=== PATIENT | female | born 1960 | race Caucasian/White ===

== ENCOUNTER → 2016-09-10 | Outpatient (CLI) | payer BC ==
--- NOTE | 2016-09-10 15:30 | CR ---
EXAMINATION: Pelvis and right hip HISTORY: Pain COMPARISON: 08/26/2016 TECHNIQUE: AP pelvis and 2 views of the right hip FINDINGS: Severe joint space narrowing, subchondral cystic change and sclerosis is noted within the right hip. There is an os acetabuli versus disrupted osteophyte within the right hip. No fracture or acute osseous abnormality is present. The SI joints are symmetric. The left hip appears normal. IMPRESSION: 1. Advanced osteoarthritic changes and joint space narrowing within the right hip. 2. No acute osseous abnormalities.
== END ==
LOC: MW.CHORTHO 07:47
PROVIDERS: ATTEND Orthopaedic Surgery
DX: M25.551 Pain in right hip (principal); M16.11 Unilateral primary osteoarthritis, right hip
CPT/HCPCS: 73502-26-RT; 73502-RT

== ENCOUNTER → 2016-09-23 | Outpatient (CLI) | payer BC ==
[2016-09-23 10:24] LABS: CHLORIDE,CL 109 mmol/L (98-110); SODIUM,NA 140 mmol/L (136-146)
--- NOTE | 2016-09-23 22:01 | CR ---
EXAM DATE: 09/23/16 PATIENT'S AGE: 56 Patient: MINISTERIO GALICIA Facility: [facility] Site . Site : 1960 Study: XRay-Chest [id number]/13/2017 11:35:37 AM Ordering Physician: Ricky Hillman Final Report: INDICATION: Preop for hip surgery. TECHNIQUE: PA and lateral. COMPARISON: 03/24/2015. FINDINGS: Lungs and pleural spaces clear. Heart size and pulmonary vasculature within normal limits. No significant osseous abnormality. IMPRESSION: Negative chest. Dictated by Willis Metcalf MD @ Sep 23 2016 4:30PM Signed by: Willis Metcalf MD @09/23/2016 4:31:13 PM (Electronic Signature) Report Signed by Proxy and Original Signed Document filed in the Medical Record. MTDD
== END ==
LOC: MW.CHFP 09:48
PROVIDERS: ATTEND Emergency Medicine
DX: Z01.818 Encounter for other preprocedural examination (principal); E61.1 Iron deficiency; N39.0 Urinary tract infection, site not specified
CPT/HCPCS: 36415; 71020; 71020-26; 80048; 81001; 85025; 85610; 87086; 87088; 87186; 93005

== ENCOUNTER 2016-10-10 06:24 | Inpatient (IN) | payer BC ==
[~2016-10-10 06:24] MED LIST: Lactated Ringers 1,000 ML IV SCH
[2016-10-10] MEDS ORDERED: Ondansetron 4 MG/2 ML SDV IVPUSH PRN (06:30)
[2016-10-10] MEDS ORDERED: Acetaminophen/oxyCODONE 325-5 MG Tab PO PRN (06:30)
[2016-10-10] MEDS ORDERED: Docusate Sodium 100 MG Cap PO PRN (06:30)
[2016-10-10] MEDS ORDERED: ceFAZolin 2 GM in Premix Bag 1 BAG IV ONE (07:00)
[2016-10-10] MEDS ORDERED: Midazolam 1 MG/ML 2 ML SDV ONE (07:17)
[2016-10-10] MEDS ORDERED: Propofol 200 MG/20 ML SDV ONE (07:17)
[2016-10-10] MEDS ORDERED: Lidocaine 2% 5 ML SDV ONE (07:17)
[2016-10-10] MEDS ORDERED: fentaNYL 250 MCG/5 ML SDV ONE (07:18)
[2016-10-10] MEDS ORDERED: Ondansetron 4 MG/2 ML SDV ONE (07:20)
[2016-10-10] MEDS ORDERED: Succinylcholine/Normal Saline 200 MG/10 ML Syringe ONE (07:20)
[2016-10-10] MEDS ORDERED: Rocuronium 10 MG/ML 10 ML Syringe ONE (07:20)
--- NOTE | 2016-10-10 07:23 | PCM.PREANE ---
Preanesthetic Assessment - Anesthesia/Transfusion/Family Hx Anesthesia History: Prior Anesthesia Without Reaction Family History of Anesthesia Reaction: No Transfusion History: No Prior Transfusion(s) - Review of Systems General: No Symptoms Pulmonary: No Symptoms Cardiovascular: No Symptoms Gastrointestinal: No symptoms Neurological: No Symptoms Other: Reports: None - Physical Assessment O2 Sat by Pulse Oximetry: 97 Respiratory Rate: 16 Vital Signs: Last Vital Signs Temp 36.2 C 10/10/16 06:52 Pulse 100 10/10/16 06:52 Resp 16 10/10/16 06:52 BP 131/78 10/10/16 06:52 Pulse Ox 97 10/10/16 06:52 Height: 1.58 m Weight: 64.41 kg ASA Class: 1 Mental Status: Alert & Oriented x3 Airway Class: Mallampati = 1 Dentition: Reports: Partial ROM/Head Extension: Full Lungs: Clear to auscultation, Normal respiratory effort Cardiovascular: Regular Rate - Allergies Allergies/Adverse Reactions: Allergies Allergy/AdvReac Type Severity Reaction Status Date / Time No Known Allergies Allergy Verified 10/07/16 14:43 - Anesthesia Plan Pre-Op Medication Ordered: None - Acknowledgements Anesthesia Type Planned: General Anesthesia, Spinal Pt an Appropriate Candidate for the Planned Anesthesia: Yes Alternatives and Risks of Anesthesia Discussed w Pt/Guardian: Yes Pt/Guardian Understands and Agrees with Anesthesia Plan: Yes PreAnesthesia Questionnaire HEENT History: Reports: Allergic rhinitis Other HEENT History: wears glasses occasionally, has upper partial removable denture Cardiovascular History: Reports: None Respiratory History: Reports: None Gastrointestinal History: Reports: Diverticulosis, Gastritis Other Gastrointestinal History: hx gastric ulcer Genitourinary History: Reports: None SERVER ASSISTANT History: Reports: None Musculoskeletal History: Reports: Arthritis Neurological History: Reports: None Psychiatric History: Reports: None Endocrine/Metabolic History: Reports: None Hematologic History: Reports: None Immunologic History: Reports: None Oncologic (Cancer) History: Reports: None Dermatologic History: Reports: None - Past Surgical History Head Surgeries/Procedures: Reports: None HEENT Surgical History: Reports: Tonsillectomy Cardiovascular Surgical History: Reports: None Respiratory Surgical History: Reports: None GI Surgical History: Reports: Colonoscopy, EGD Female Surgical History: Reports: Tubal ligation Endocrine Surgical History: Reports: None Neurological Surgical History: Reports: None Musculoskeletal Surgical History: Reports: None Oncologic Surgical History: Reports: None Dermatological Surgical History: Reports: None - SUBSTANCE USE Smoking Status *Q: Former Smoker Tobacco Use Within Last Twelve Months: No Recreational Drug Use History: No - HOME MEDS Home Medications: Home Meds Meloxicam [Mobic] 1 - 2 tab PO BID 03/22/15 [History] Multivitamin [Multivitamins] 1 tab PO DAILY 03/22/15 [History] traMADol HCl [Ultram] 50 mg PO Q6H PRN 10/07/16 [History] - CURRENT (IN HOUSE) MEDS Current Meds: Current Medications Aspirin (Ecotrin) 325 mg PO BID NOA Celecoxib (Celebrex) 200 mg PO DAILY NOA Docusate Sodium (Colace) 100 mg PO BID PRN PRN Reason: Constipation Cefazolin Sodium/Dextrose 2 gm (/ Premix) 50 mls @ 100 mls/hr IV ONCALL ONE Stop: 10/10/16 07:29 Tranexamic Acid 1,000 mg/ (Sodium Chloride) 110 mls @ 600 mls/hr IV ONETIME ONE Stop: 10/10/16 07:40 Lactated Ringer's (Ringers, Lactated) 1,000 mls @ 100 mls/hr IV ASDIRECTED [facility] Last Admin: 10/10/16 07:03 Dose: 100 mls/hr Lactated Ringer's (Ringers, Lactated) 1,000 mls @ 125 mls/hr IV ASDIRECTED [facility] Cefazolin Sodium/Dextrose 1 gm (/ Premix) 50 mls @ 100 mls/hr IV Q8H NOA Stop: 10/11/16 06:59 Ketorolac Tromethamine (Toradol) 30 mg IVPUSH Q8H PRN PRN Reason: Pain Multivitamins/Minerals (Thera M Plus) 1 tab PO DAILY [facility] Ondansetron HCl (Zofran) 4 mg IVPUSH Q4H PRN PRN Reason: Nausea/Vomiting Oxycodone/Acetaminophen (Percocet 325-5 Mg) 1 tab PO Q4H PRN PRN Reason: Pain Discontinued Medications Fentanyl (Sublimaze) Confirm Administered Dose 250 mcg .ROUTE .STK-MED ONE Stop: 10/10/16 07:19 Lidocaine (Xylocaine-Mpf 2%) Confirm Administered Dose 10 ml .ROUTE .STK-MED ONE Stop: 10/10/16 07:18 Midazolam HCl (Versed 1 Mg/Ml) Confirm Administered Dose 2 mg .ROUTE .STK-MED ONE Stop: 10/10/16 07:18 Propofol (Diprivan 20 Ml) Confirm Administered Dose 400 mg .ROUTE .STK-MED ONE Stop: 10/10/16 07:18 Preanesthetic Assessment - ANESTHESIA/TRANSFUSION/FAMILY HX Anesthesia/Transfusion History: No Prior Transfusion(s), Prior Anesthesia Family History of Anesthesia Reaction: No Other Intubation History Comment: no known problems - PHYSICAL ASSESSMENT O2 Sat by Pulse Oximetry: 97 RR: 16 Vital Signs: Last Vital Signs Temp 36.2 C 10/10/16 06:52 Pulse 100 10/10/16 06:52 Resp 16 10/10/16 06:52 BP 131/78 10/10/16 06:52 Pulse Ox 97 10/10/16 06:52 Height: 1.58 m Weight: 64.41 kg - ALLERGIES Allergies/Adverse Reactions: Allergies Allergy/AdvReac Type Severity Reaction Status Date / Time No Known Allergies Allergy Verified 10/07/16 14:43
[2016-10-10] MEDS ORDERED: Tranexamic Acid 1,000 MG in Sodium Chloride 0.9% 100 ML IV ONE (07:30)
[2016-10-10] MEDS ORDERED: Phenylephrine/Normal Saline 100 MCG/ML 10 ML Syringe ONE (08:24)
[2016-10-10] MEDS ORDERED: HYDROmorphone 2 MG/ML Syringe IVPUSH ONE (09:21)
[2016-10-10] MEDS ORDERED: fentaNYL 100 MCG/2 ML SDV IVPUSH PRN (09:21)
[2016-10-10] MEDS ORDERED: Neostigmine Methylsulfate 1 MG/ML 5 ML Syringe ONE (09:40)
[2016-10-10] MEDS ORDERED: Ketorolac 30 MG/ML SDV ONE (09:45)
[2016-10-10] MEDS ORDERED: ePHEDrine 50 MG/ML SDV ONE (09:52)
--- NOTE | 2016-10-10 11:18 | CR ---
EXAMINATION: Right hip HISTORY: Total hip replacement COMPARISON: 09/10/2016 TECHNIQUE: 5 fluoroscopic images provided FINDINGS/IMPRESSION: Operative control films demonstrate placement of right total hip hardware. Posi tion and alignment appear normal.
--- NOTE | 2016-10-10 11:38 | PCM.POSTAN ---
POST ANESTHESIA ASSESSMENT - MENTAL STATUS Mental Status: alert, oriented - RESPIRATORY Respiratory Status: respiratory rate WNL, airway patent, O2 saturation stable - CARDIOVASCULAR CV Status: pulse rate WNL, blood pressure stable - GASTROINTESTINAL GI Status: no symptoms - PAIN Pain Score: 0 (spinal still effective) - POST OP HYDRATION Hydration Status: adequate & stable - OBSERVATIONS Free Text/Narrative:: To floor for Phase II
[2016-10-10] MEDS: Multivitamins with Iron/Calcium/Folic Acid/Minerals Tab PO SCH (12:57)
[2016-10-10] MEDS: Lactated Ringers 1,000 ML IV SCH ×2 (14:00→20:17)
[2016-10-10] MEDS: ceFAZolin 1 GM in Premix Bag 1 BAG IV SCH ×2 (14:21→22:24)
--- NOTE | 2016-10-10 15:19 | CR ---
EXAMINATION: Pelvis HISTORY: Right total hip hardware COMPARISON: Same day TECHNIQUE: Low AP pelvis FINDINGS/IMPRESSION: Right total hip hardware is demonstrated in good position and alignment. The le ft hip and visualized osseous structures otherwise appear normal. Bone mineralization is preserved.
--- NOTE | 2016-10-10 16:43 | OR ---
SURGEON: HEVER GUIDO MD DATE OF PROCEDURE: 10/10/2016 ANESTHESIA: General anesthesia with spinal anesthetic. 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 POSTOPERATIVE DIAGNOSIS: Severe right hip avascular necrosis with collapse. OPERATION PERFORMED: Right total hip arthroplasty. COMPLICATIONS: None. ESTIMATED BLOOD LOSS: 300. INDICATIONS: The patient is a 56-year-old female with a long history of pain and disability secondary to right hip avascular necrosis. We discussed the option of total hip arthroplasty. Following a thorough discussion of the risks, benefits, expected outcomes, and alternatives, the patient did wish to proceed with surgery. DESCRIPTION OF PROCEDURE: I saw the patient in the preoperative holding area. The operative site was marked. She was brought back to the operating room. General and spinal anesthesia was administered by the anesthesia team. She received Ancef as well as tranexamic acid preoperatively. The standard fracture table was utilized. Care was taken to pad the feet and pad all bony prominences. She was then prepped and draped in normal sterile fashion. Following a multidisciplinary time-out, a standard anterior approach to the hip was made. This was done by incising the TFL fascia so as to avoid the cutaneous nerve. The capsule was identified, it was taken down in L-shape fashion. It was marked with fiberwire for later repair. Neck cut was marked and it was made according to preoperative templating. I also used fluoro to ensure appropriate positioning of the neck cut. The head was then removed without substantial difficulty. There was marked collapse of the head consistent with a known diagnosis of avascular necrosis. The acetabulum was identified and abundant soft tissue was removed from the base of the acetabulum. I then introduced the reamer. This was relatively small and I reamed up to a size 47 for placement of a 48 mm acetabulum. I used fluoro during reaming as well as impacting the cup. There was excellent fixation of the [address] cup[address] I did place one screw as a backup. The final polyethylene was placed at this time. Thorough irrigation was used prior to placement of the cup. Attention was then turned towards exposure of the femur. This was done in the standard fashion. I did make the standard releases off the inner aspect of the trochanter. There was excellent femoral exposure. I initially entered the canal and removed bone laterally. I then progressively broached up to a size 5. A trial reduction was performed at this time. The length and offset were appropriate. There was still good fixation with the 5 after redislocation. I then thoroughly irrigated the hip and placed the final size 5 stem. This again showed excellent fixation. I used a reduced length and extended offset component. A final zero head was placed. Final fluoroscopic images were obtained. Again, this showed no grossly appropriate length offset and no obvious fractures or other complications. There was good stability intraoperatively. The wound was again thoroughly irrigated. I injected a total of 20 mL of Exparel mixed with 40 mL of saline for postoperative analgesia. Closure occurred in layers with a running one Vicryl for the fascia, 2-0 Vicryl for the subcutaneous layer, and a running barbed suture for the dermis. Dermabond and Dermabond tape were applied as well. A sterile dressing was applied. The patient was then transferred to recovery in stable condition. POSTOPERATIVE PLAN: Will include routine cares following anterior total hip arthroplasty. Radiographs will be obtained in the PACU. Assuming it looked okay, she will be weightbearing as tolerated with anterior hip precautions. She does not require posterior hip precautions. I used 24 hours of Ancef as well as aspirin, mechanicals for DVT prophylaxis. COMPONENTS PLACED: All components were Chao. Both the stem and the acetabulum were press-fit. The acetabular component was 48 mm Continuum Trabecular metal sutured with 120 mm screw. A 32 mm inner diameter liner was placed. The femoral head was 32 mm Biolox delta ceramic. The stem was Chao M/L taper size 5, extended offset reduced neck length. There was a single 20 mm screw placed for securing the acetabulum as well. JOAN STANLEY /[id number]
[2016-10-10] MEDS: Acetaminophen/oxyCODONE 325-5 MG Tab PO PRN (18:02)
[2016-10-10] MEDS: Ketorolac 30 MG/ML SDV IVPUSH PRN (18:27)
--- NOTE | 2016-10-10 19:55 | PN ---
SUBJECTIVE: The patient reports that overall she is doing well following her right hip replacement procedure earlier today. She has been up ambulatory to the door and back with physical therapy. Her pain is reasonably well controlled with the pain medications. She does note some discomfort involving the thigh. She denies any chest pain, shortness of breath, nausea/vomiting, or other significant complaints. The spinal has worn off at this time and she notes a normal sensation involving her bilateral lower extremities. OBJECTIVE: GENERAL: Reveals a well-appearing female. She is alert and oriented. VITAL SIGNS: Reviewed. She has been afebrile, pulse 72, blood pressure 111/59, respiratory rate 16, and saturating 96% on room air currently. EXTREMITIES: Examination of the surgical area shows the dressing to be in place. It is clean and dry. No significant hematoma. There is a minimal spot on the distal aspect of the dressing, but no significant drainage at this time. She is able to flex extend the ankle, and flex and extend the great toe with normal strength. She notes intact sensation to light touch in the deep peroneal, superficial peroneal, and tibial nerve distributions. She has a palpable dorsalis pedis pulse and brisk capillary refill to the toes. LABORATORY DATA: Postoperative film obtained in the PACU was reviewed. This shows appropriate positioning of components. No apparent fractures, dislocations, or other complications. ASSESSMENT: Status post right total hip arthroplasty from an anterior approach, doing well. PLAN: We will continue with routine cares. This will include mechanicals and aspirin for DVT prophylaxis. She will continue with physical therapy. She received 24 hours of Ancef. We will discontinue the Gutierrez as soon as she can comfortably ambulate to the restroom. JOAN STANLEY /[id number]
[2016-10-11] MEDS: Acetaminophen/oxyCODONE 325-5 MG Tab PO PRN (00:59)
[2016-10-11] MEDS: Ketorolac 30 MG/ML SDV IVPUSH PRN (02:35)
[2016-10-11] MEDS: ceFAZolin 1 GM in Premix Bag 1 BAG IV SCH (07:00)
[2016-10-11 07:03] LABS: CHLORIDE,CL 109 mmol/L (98-110); SODIUM,NA 140 mmol/L (136-146)
[2016-10-11] MEDS ORDERED: Acetaminophen/oxyCODONE 325-5 MG Tab PO PRN (07:40)
--- NOTE | 2016-10-11 07:48 | PN ---
SUBJECTIVE: The patient is seen on the morning of postoperative day 1, following right total hip arthroplasty from an anterior approach performed yesterday. She notes some thigh discomfort overnight, but otherwise without complaints. She is tolerating a diet. She denies chest pain, shortness of breath, nausea, or vomiting. She has had good urine output. The thigh pain is relatively well controlled by the pain medications, although she still slept somewhat poorly. OBJECTIVE: VITAL SIGNS: The patient is afebrile with stable vital signs. Her most recent blood pressure readings have been a bit low with systolics in the 90s. Pulse rates have ranged from 60 to a high of 105 at midnight. She is saturating well without oxygen. EXTREMITIES: Examination of the operative extremity shows mild ecchymosis in the region of the surgical field appropriate for postsurgical status. There is minimal to no drainage with respect to the dressing. She has mild tenderness to palpation in the region of the thigh. She is able to flex and extend the ankle and flex and extend the great toe with normal strength. She has a palpable dorsalis pedis pulse and has intact sensation to light touch throughout the foot including the deep peroneal, superficial peroneal, and tibial nerve distributions. LABORATORY DATA: Results from this morning were reviewed. These show hemoglobin of 10.6 hematocrit 33.1, platelets 310, white cell 12.5. Chemistries were reviewed as well, and they all have been in normal range including creatinine at 0.7. ASSESSMENT: Postoperative day 1, status post right total hip arthroplasty from an anterior approach. PLAN: She will continue with physical therapy today. Depending on her pain control as well as mobilization, she potentially will be rated discharged home this afternoon. She will have routine cares including aspirin for DVT prophylaxis and pain control at the time of discharge. We will discontinue the Gutierrez catheter as well as IV fluids this morning. JOAN STANLEY /[id number]
[2016-10-11] MEDS: Aspirin 325 MG Tab.EC PO SCH ×2 (08:53→21:41)
[2016-10-11] MEDS: Multivitamins with Iron/Calcium/Folic Acid/Minerals Tab PO SCH (08:53)
[2016-10-11] MEDS: Celecoxib 100 MG Cap PO SCH (08:55)
[2016-10-11] MEDS ORDERED: Acetaminophen 500 MG Tab PO PRN (15:11)
[2016-10-12 07:18] LABS: CHLORIDE,CL 107 mmol/L (98-110); SODIUM,NA 137 mmol/L (136-146)
[2016-10-12] MEDS: Celecoxib 100 MG Cap PO SCH (09:26)
[2016-10-12] MEDS: Aspirin 325 MG Tab.EC PO SCH (09:27)
--- NOTE | 2016-10-12 10:21 | PCM48HPAN ---
Post Anesthesia Note - EVALUATION WITHIN 48HRS OF ANESTHETIC Vital Signs in Normal Range: Yes Patient Participated in Evaluation: Yes Respiratory Function Stable: Yes Airway Patent: Yes Cardiovascular Function Stable: Yes Hydration Status Stable: Yes Pain Control Satisfactory: Yes Nausea and Vomiting Control Satisfactory: Yes Mental Status Recovered: Yes
[2016-10-12 10:39] VITALS: BP 109/60
--- NOTE | 2016-10-12 10:58 | PN ---
SUBJECTIVE: Patient reports she did quite well overnight. Her pain has been under good control. She ambulated quite well yesterday. She denies fevers, chills, nausea, vomiting, chest pain, shortness of breath, or other complaints. She still has some thigh discomfort, but this is gradually getting better with time. She denies significant pain with ambulation. She is taking a normal diet. She has not had a bowel movement, but is having flatus. OBJECTIVE: VITAL SIGNS: The patient has been afebrile overnight. Her blood pressures have returned to a bit normal range with the last reading of 123/61. Pulses range from a high of 101 to a low of 58. She is saturating well on room air. GENERAL: Reveals a well-appearing female. The dressing was actually changed yesterday afternoon. There was concern for some slight drainage in her groin crease more medially. This actually looks like a bit of breakdown from moisture. The incision itself was pristine with no drainage. Minimal surrounding ecchymosis. A new dressing was replaced yesterday afternoon. This morning, she remains neurovascularly intact. She has grossly equal leg lengths with normal rotation of the operative extremity. She is able to flex and extend the ankle and flex and extend the great toe with normal strength. She has intact sensation to light touch throughout the foot. She has a palpable dorsalis pedis pulse. DIAGNOSTIC DATA: Results reviewed. Laboratory results from this morning were reviewed. Chemistries are actually still pending at this time. Her hemoglobin had a very slight additional drop to 10.1 from 10.6 yesterday, white count remains mildly elevated, hematocrit 31.1 and platelets 309. ASSESSMENT: Postoperative day 2, status post total hip arthroplasty from an anterior approach. She is doing well. She had some intermittent nausea yesterday, which has now resolved. She feels ready to be discharged home today. PLAN: The plan will be for discharge home today. She will have home prescriptions for Percocet, Colace, and aspirin. She also has some previous tramadol, which she can use if she needs something less strong than the Percocet. She will restart her home Mobic as well. We discussed typical cares following this procedure. The dressing will stay in place until her next postoperative visit. If she has any questions or issues in the interim, she knows that she is to contact the clinic or return to the ER immediately. JOAN / JADEN /[id number]
--- NOTE | 2016-10-12 11:38 | DISCH ---
DATE OF DISCHARGE: 10/12/2016 PRIMARY CARE PHYSICIAN: Neville García M.D. REASON FOR ADMISSION: Postoperative cares following right total hip arthroplasty. Date of the operation 10/10/2016, right total hip arthroplasty. HOSPITAL COURSE: The patient was admitted following right total hip arthroplasty. She has had routine cares following the operation. Postoperative x-ray showed components in good position. She has been mobilizing with physical therapy with a walker, weightbearing as tolerated. Her pain has been under reasonable control. She had some nausea on postoperative day 1, but has been tolerating diet well without additional nausea and vomiting since then. Her vital signs have been stable, and her postoperative labs including hemoglobin have been in acceptable range. The incision has been pristine. POSTOPERATIVE INSTRUCTIONS: She will leave the dressing until her next postoperative visit. She has prescriptions for pain control (Percocet), a stool softener (Colace), and an aspirin twice a day. She knows it is important to take the aspirin twice a day for DVT prophylaxis. She will walk at home and do basic exercises on her own. She will follow up in clinic in approximately 2 weeks for a wound check at that time. JOAN / JADEN /[id number]
== END 2016-10-12 13:27 | disposition home or self-care (01) | DRG 301 ==
LOC: MW.MS 06:24
PROVIDERS: ADMIT Orthopaedic Surgery; ATTEND Orthopaedic Surgery
PROC: 0SR90JZ Replacement of Right Hip Joint with Synthetic Substitute, Open Approach (ICD-10-PCS; principal; 2016-10-10)
DX: M16.11 Unilateral primary osteoarthritis, right hip (principal); M87.9 Osteonecrosis, unspecified; Z79.899 Other long term (current) drug therapy; Z87.891 Personal history of nicotine dependence
CPT/HCPCS: 01214; 36415; 72170; 72170-26; 76001; 76001-26; 80048; 85025; 86850; 86900; 86901; 88305; 88311; 97110-GP; 97162-GP; 97530-GP; A9270-GY; C1713; C1776; J0690; J1885; J2250; J2405; J2704; J3010; J7120

== ENCOUNTER → 2016-10-22 | Outpatient (CLI) | payer BC ==
--- NOTE | 2016-10-22 10:34 | CR ---
EXAMINATION: Pelvis and right hip HISTORY: Artificial joint COMPARISON: 10/10/2016 TECHNIQUE: AP pelvis and 2 views of the right hip FINDINGS: Right total hip hardware is demonstrated in stable position and alignment. Left hip joint space appears preserved. The SI joints are symmetric. Bone mineralization is normal. No fracture or acute osseous abnormality. IMPRESSION: Stable right total hip hardware.
== END | disposition home or self-care (01) ==
LOC: MW.CHORTHO 07:49
PROVIDERS: ATTEND Physician Assistant
DX: Z09 Encounter for follow-up examination after completed treatment for conditions other than malignant neoplasm (principal); Z96.641 Presence of right artificial hip joint
CPT/HCPCS: 36415; 73502-26-RT; 73502-RT; 85025

== ENCOUNTER → 2016-11-01 | Outpatient (CLI) | payer BC ==
[~2016-11-01] MED LIST changes: +Iopamidol 755 MG/ML 500 ML Multipack Bottle IVPUSH STA; -Lactated Ringers 1,000 ML IV SCH
[2016-11-01 09:54] LABS: CHLORIDE,CL 108 mmol/L (98-110); SODIUM,NA 140 mmol/L (136-146)
--- NOTE | 2016-11-01 10:44 | CT ---
CT of the abdomen and pelvis with contrast. HISTORY: Early satiety TECHNIQUE: Axial CT images were obtained of the abdomen and pelvis following administration of 81 mL of Isovue-370 in the right antecubital fossa without complication. Coronal and sagittal reconstruct ions obtained. FINDINGS: The lung bases are clear, no pleural effusion. The liver, spleen, adrenal glands, and pancreas appear unremarkable. The gallbladder is normal. Ther e is no bulky retroperitoneal lymphadenopathy or abdominal ascites. The gastric antrum and pylorus a ppears thickened and edematous. No free air is noted. There are a few adjacent perigastric nonpathol ogically enlarged however enhancing lymph nodes. The kidneys enhance and function symmetrically without evidence of obstructive uropathy. There is a tiny cyst within the upper pole of the right kidney. The large and small bowel are normal caliber without evidence of obstruction. Diverticulosis without evidence of diverticulitis. The appendix appears normal. The urinary bladder is mostly decompressed . No free pelvic fluid or bulky pelvic lymphadenopathy. Right total hip hardware is demonstrated. Mild degenerative changes noted within the lumbar spine. N o suspicious osseous abnormalities. IMPRESSION: 1. Thickened gastric antrum and pylorus. This may represent peptic ulcer disease, however direct vis ualization may be beneficial to rule out a neoplastic process. 2. Diverticulosis without evidence of diverticulitis.
== END ==
LOC: MW.CHFP 08:56
PROVIDERS: ATTEND Physician Assistant
DX: R68.81 Early satiety (principal); K92.89 Other specified diseases of the digestive system; K57.90 Diverticulosis of intestine, part unspecified, without perforation or abscess without bleeding
CPT/HCPCS: 36415; 74177; 80053; 85025; 85652; 86677; Q9967

== ENCOUNTER 2016-11-14 07:44 | Day surgery (SDC) | payer BC ==
[~2016-11-14 07:44] MED LIST changes: -Iopamidol 755 MG/ML 500 ML Multipack Bottle IVPUSH STA; +Lactated Ringers 1,000 ML IV SCH; +Lidocaine 2% 5 ML SDV ONE; +Propofol 200 MG/20 ML SDV ONE; +cefOXitin 1 GM in Premix Bag 1 BAG IV SCH; +fentaNYL 100 MCG/2 ML SDV ONE
--- NOTE | 2016-11-14 08:38 | PCM.PREANE ---
Preanesthetic Assessment - Anesthesia/Transfusion/Family Hx Anesthesia History: Prior Anesthesia Without Reaction Type of Anesthesia Reaction: Other (see below) (swallowed partial during EGD, removed by immediate EGD) Family History of Anesthesia Reaction: No Transfusion History: No Prior Transfusion(s) Intubation History: Unknown - Review of Systems General: No Symptoms Pulmonary: No Symptoms Cardiovascular: No Symptoms Neurological: No Symptoms - Physical Assessment NPO Status Date: 11/13/16 NPO Status Time: 22:00 O2 Sat by Pulse Oximetry: 97 Respiratory Rate: 16 Vital Signs: Last Vital Signs Temp 36.6 C 11/14/16 07:57 Pulse 89 11/14/16 07:57 Resp 16 11/14/16 07:57 BP 118/69 11/14/16 07:57 Pulse Ox 97 11/14/16 07:57 Height: 1.58 m Weight: 59.874 kg ASA Class: 2 Mental Status: Alert & Oriented x3 Airway Class: Mallampati = 2 Dentition: Reports: Partial (upper) Thyro-Mental Finger Breadths: 3 Mouth Opening Finger Breadths: 3 ROM/Head Extension: Full Lungs: Clear to auscultation, Normal respiratory effort Cardiovascular: Regular Rate, Regular Rhythm - Allergies Allergies/Adverse Reactions: Allergies Allergy/AdvReac Type Severity Reaction Status Date / Time No Known Allergies Allergy Verified 11/12/16 17:01 - Blood Blood Available: No - Anesthesia Plan Pre-Op Medication Ordered: None - Acknowledgements Anesthesia Type Planned: MAC Pt an Appropriate Candidate for the Planned Anesthesia: Yes Alternatives and Risks of Anesthesia Discussed w Pt/Guardian: Yes Pt/Guardian Understands and Agrees with Anesthesia Plan: Yes PreAnesthesia Questionnaire HEENT History: Reports: Allergic rhinitis Other HEENT History: wears glasses occasionally, has upper partial removable denture Cardiovascular History: Reports: None Respiratory History: Reports: None Gastrointestinal History: Reports: Diverticulosis, Gastritis Other Gastrointestinal History: hx gastric ulcer Genitourinary History: Reports: None 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 Musculoskeletal History: Reports: Arthritis Neurological History: Reports: None Psychiatric History: Reports: None Endocrine/Metabolic History: Reports: None Hematologic History: Reports: None, Other (see below) (h/o anemia) Immunologic History: Reports: None Oncologic (Cancer) History: Reports: None Dermatologic History: Reports: None - Past Surgical History Head Surgeries/Procedures: Reports: None HEENT Surgical History: Reports: Tonsillectomy Cardiovascular Surgical History: Reports: None Respiratory Surgical History: Reports: None GI Surgical History: Reports: Colonoscopy, EGD Female Surgical History: Reports: Tubal ligation Endocrine Surgical History: Reports: None Neurological Surgical History: Reports: None Musculoskeletal Surgical History: Reports: None, Hip replacement Other Musculoskeletal Surgeries/Procedures:: right ROSA 6 weeks ago Oncologic Surgical History: Reports: None Dermatological Surgical History: Reports: None - SUBSTANCE USE Smoking Status *Q: Former Smoker Tobacco Use Within Last Twelve Months: No Recreational Drug Use History: No - HOME MEDS Home Medications: Home Meds Meloxicam [Mobic] 7.5 - 15 mg PO DAILY 03/22/15 [History] Multivitamin [Multivitamins] 1 tab PO DAILY 03/22/15 [History] Aspirin [Aspirin EC] 325 mg PO BID #84 tablet. 10/11/16 [Rx] Acetaminophen/Diphenhydramine [Tylenol Pm Ex-Strength Caplet] 1 tab PO DAILY PRN 11/12/16 [History] - CURRENT (IN HOUSE) MEDS Current Meds: Current Medications Lactated Ringer's (Ringers, Lactated) 1,000 mls @ 125 mls/hr IV ASDIRECTED NOA Last Admin: 11/14/16 08:08 Dose: 125 mls/hr Cefoxitin Sodium 1 gm/ Premix 50 mls @ 100 mls/hr IV ONETIME NOA Discontinued Medications Fentanyl (Sublimaze) Confirm Administered Dose 100 mcg .ROUTE .STK-MED ONE Stop: 11/14/16 07:36 Lidocaine (Xylocaine-Mpf 2%) Confirm Administered Dose 5 ml .ROUTE .STK-MED ONE Stop: 11/14/16 07:36 Propofol (Diprivan 20 Ml) Confirm Administered Dose 400 mg .ROUTE .STK-MED ONE Stop: 11/14/16 07:36
--- NOTE | 2016-11-14 09:08 | PCM.OPNOTE ---
- General Post-Op/Procedure Note Date of Surgery/Procedure: 11/14/16 Operative Procedure(s): Esophagogastroduodenoscopy with biopsy Pre Op Diagnosis: Early satiety. Abnormal weight loss. Abnormal CAT scan. Post-Op Diagnosis: Severe gastritis with large distal gastric ulcer and small proximal gastric ulcers. Anesthesia Technique: MAC (ASA II) Primary Surgeon: Bao Shoemaker Condition: Good Free Text/Narrative:: Dictation [id number]. Patient will need repeat esophagogastroduodenoscopy in 3 months. CPTcode: [id number]
--- NOTE | 2016-11-14 09:12 | PCM.POSTAN ---
POST ANESTHESIA ASSESSMENT - MENTAL STATUS Mental Status: alert, oriented - RESPIRATORY Respiratory Status: respiratory rate WNL, airway patent, O2 saturation stable - CARDIOVASCULAR CV Status: pulse rate WNL, blood pressure stable - GASTROINTESTINAL GI Status: no symptoms - POST OP HYDRATION Hydration Status: adequate & stable - OBSERVATIONS Free Text/Narrative:: no anesthesia problems
[2016-11-14] MEDS ORDERED: Lactated Ringers 1,000 ML IV SCH (09:15)
[2016-11-14 09:47] VITALS: BP 105/60
--- NOTE | 2016-11-14 11:14 | OR ---
SURGEON: Bao Shoemaker M.D. DATE OF PROCEDURE: 11/14/2016 OPERATION PERFORMED: Esophagogastroduodenoscopy with biopsy. ANESTHESIA: MAC. ASA CLASSIFICATION: II. PREOPERATIVE DIAGNOSES: Early satiety, unexplained weight loss, abnormal CAT scan. POSTOPERATIVE DIAGNOSIS: Large distal gastric ulcer without bleeding. DESCRIPTION OF PROCEDURE: The patient was taken to the endoscopy room and positioned on the endoscopy table in the supine position. Time-out was called for appropriate identification of the patient and procedure. Monitored anesthesia care was provided. The bite-block was placed between the patient's teeth. The gastroscope was inserted into the mouth, advanced without difficulty through the esophagus and stomach into the duodenum, where examination was carried out in a retrograde fashion. Duodenum shows no acute inflammatory changes or ulcerations. The distal stomach just proximal to the pylorus shows a very large gastric ulcer with multiple more proximal smaller superficial ulcers. Biopsies of the antrum were obtained. The gastroscope was retroflexed to visualize the proximal stomach. No tumors or masses were noted. There was a large amount of retained food stuff within the stomach consistent with a low-grade distal obstruction. Nevertheless, I was able to easily advance the gastroscope through the pylorus. After obtaining biopsies of the vee-ulcer area in the antrum, the scope was retroflexed again to visualize proximal stomach. Again, no other lesions were noted. The scope was then slowly withdrawn aspirating the stomach. The GE junction was well defined. The esophagus demonstrated good contractility. No distal, mid, or proximal esophageal lesions were identified. The vocal cords were visualized as the scope was withdrawn and noted to move symmetrically. The patient tolerated the procedure well and was taken to recovery room in stable condition. RUBY / JADEN /[id number]
== END 2016-11-14 09:45 | disposition home or self-care (01) ==
LOC: MW.SDS 07:44
PROVIDERS: ATTEND Surgery
DX: K29.00 Acute gastritis without bleeding (principal); K29.50 Unspecified chronic gastritis without bleeding; R68.81 Early satiety; R63.4 Abnormal weight loss; M19.90 Unspecified osteoarthritis, unspecified site; D50.9 Iron deficiency anemia, unspecified; M16.11 Unilateral primary osteoarthritis, right hip; G43.009 Migraine without aura, not intractable, without status migrainosus; Z96.649 Presence of unspecified artificial hip joint; Z79.82 Long term (current) use of aspirin; Z79.1 Long term (current) use of non-steroidal anti-inflammatories (NSAID); Z79.899 Other long term (current) drug therapy; Z98.51 Tubal ligation status; Z98.890 Other specified postprocedural states; Z87.891 Personal history of nicotine dependence
CPT/HCPCS: 43239; J0694; J3010; J7120; 00740; 88305; 88312; J2704

== ENCOUNTER 2017-03-20 08:08 | Day surgery (SDC) | payer BC ==
[~2017-03-20 08:08] MED LIST changes: +Midazolam 1 MG/ML 2 ML SDV ONE; -cefOXitin 1 GM in Premix Bag 1 BAG IV SCH
--- NOTE | 2017-03-20 08:40 | PCM.PREANE ---
Preanesthetic Assessment - Anesthesia/Transfusion/Family Hx Anesthesia History: Prior Anesthesia Without Reaction Transfusion History: No Prior Transfusion(s) Intubation History: Unknown - Review of Systems General: No Symptoms Pulmonary: No Symptoms Cardiovascular: No Symptoms Gastrointestinal: No Symptoms Neurological: No Symptoms Other: Reports: None - Physical Assessment NPO Status Date: 03/19/17 O2 Sat by Pulse Oximetry: 99 Respiratory Rate: 16 Vital Signs: Last Vital Signs Temp 36.9 C 03/20/17 08:31 Pulse 62 03/20/17 08:31 Resp 16 03/20/17 08:31 BP 117/69 03/20/17 08:31 Pulse Ox 99 03/20/17 08:31 Height: 1.52 m Weight: 57.606 kg ASA Class: 2 Mental Status: Alert & Oriented x3 Airway Class: Mallampati = 2 Dentition: Reports: Partial - Allergies Allergies/Adverse Reactions: Allergies Allergy/AdvReac Type Severity Reaction Status Date / Time No Known Allergies Allergy Verified 03/18/17 11:31 - Acknowledgements Anesthesia Type Planned: MAC Pt an Appropriate Candidate for the Planned Anesthesia: Yes Alternatives and Risks of Anesthesia Discussed w Pt/Guardian: Yes Pt/Guardian Understands and Agrees with Anesthesia Plan: Yes PreAnesthesia Questionnaire HEENT History: Reports: Allergic Rhinitis Other HEENT History: has upper partial removable denture Cardiovascular History: Reports: None Respiratory History: Reports: None Gastrointestinal History: Reports: Helicobacter Pylori, PUD Other Gastrointestinal History: hx gastric ulcer Genitourinary History: Reports: None 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 Musculoskeletal History: Reports: Arthritis Neurological History: Reports: Migraines Psychiatric History: Reports: None Endocrine/Metabolic History: Reports: None Hematologic History: Reports: Anemia Immunologic History: Reports: None Oncologic (Cancer) History: Reports: None Dermatologic History: Reports: None - Past Surgical History HEENT Surgical History: Reports: Tonsillectomy GI Surgical History: Reports: Colonoscopy, EGD Female Surgical History: Reports: Tubal Ligation Musculoskeletal Surgical History: Reports: Hip Replacement Other Musculoskeletal Surgeries/Procedures:: right ROSA - SUBSTANCE USE Smoking Status *Q: Former Smoker Tobacco Use Within Last Twelve Months: No Recreational Drug Use History: No - HOME MEDS Home Medications: Home Meds Multivitamin [Multivitamins] 1 tab PO DAILY 03/22/15 [History] Sucralfate [Carafate] 1 gm PO QID 03/18/17 [History] - CURRENT (IN HOUSE) MEDS Current Meds: Current Medications Lactated Ringer's (Ringers, Lactated) 1,000 mls @ 125 mls/hr IV ASDIRECTED NOA Last Admin: 03/20/17 08:32 Dose: 125 mls/hr Discontinued Medications Fentanyl (Sublimaze) Confirm Administered Dose 100 mcg .ROUTE .STK-MED ONE Stop: 03/20/17 06:52 Lidocaine (Xylocaine-Mpf 2%) Confirm Administered Dose 5 ml .ROUTE .STK-MED ONE Stop: 03/20/17 06:52 Midazolam HCl (Versed 1 Mg/Ml) Confirm Administered Dose 2 mg .ROUTE .STK-MED ONE Stop: 03/20/17 06:52 Propofol (Diprivan 20 Ml) Confirm Administered Dose 400 mg .ROUTE .STK-MED ONE Stop: 03/20/17 06:52
--- NOTE | 2017-03-20 09:22 | PCM.OPNOTE ---
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
[2017-03-20] MEDS ORDERED: Lactated Ringers 1,000 ML IV SCH (09:30)
--- NOTE | 2017-03-20 09:38 | PCM.POSTAN ---
POST ANESTHESIA ASSESSMENT - MENTAL STATUS Mental Status: Alert, Oriented - RESPIRATORY Respiratory Status: Respiratory Rate WNL, Airway Patent, O2 Saturation Stable - CARDIOVASCULAR CV Status: Pulse Rate WNL, Blood Pressure Stable - GASTROINTESTINAL GI Status: No Symptoms - POST OP HYDRATION Hydration Status: Adequate & Stable
[2017-03-20 09:39] VITALS: BP 108/65
--- NOTE | 2017-03-20 12:32 | OR ---
SURGEON: Bao Shoemaker M.D. DATE OF PROCEDURE: 03/20/2017 OPERATION PERFORMED: Esophagogastroduodenoscopy with gastric biopsy. ANESTHESIA: MAC. ASA CLASSIFICATION: II. PREOPERATIVE DIAGNOSIS: Personal history of gastric ulcer. POSTOPERATIVE DIAGNOSIS: Mild gastritis. No evidence of residual ulceration. DESCRIPTION OF PROCEDURE: The patient was taken to the endoscopy room, positioned on the endoscopy table in the supine position. Time-out was called for appropriate identification of the patient and procedure. Monitored anesthesia care was provided. The bite block was placed between the patient's teeth. The gastroscope was inserted through the bite block into the oropharynx and advanced without difficulty through the esophagus and stomach into the duodenum where examination was carried out in a retrograde fashion. The duodenum shows no duodenitis or ulceration. The stomach does show moderate amount of retained gastric material. I was able to irrigate around this. There was no evidence of residual ulcer. Antral biopsies were again obtained to rule out Helicobacter pylori. The gastroscope was retroflexed to visualize the proximal stomach. Other than a small hiatal hernia, no other lesions were identified. The gastroscope was then straightened and slowly withdrawn. The GE junction was well defined and shows no acute inflammatory changes. The esophagus demonstrated good contractility. The vocal cords were visualized as the scope was withdrawn and noted to move symmetrically. The gastroscope was then removed with the patient having tolerated the procedure well. She was taken to recovery room in stable condition. RUBY STANLEY /[id number]
== END 2017-03-20 10:20 | disposition home or self-care (01) ==
LOC: MW.SDS 08:08
PROVIDERS: ATTEND Surgery
DX: K29.00 Acute gastritis without bleeding (principal); K29.50 Unspecified chronic gastritis without bleeding; K44.9 Diaphragmatic hernia without obstruction or gangrene; M16.11 Unilateral primary osteoarthritis, right hip; Z87.19 Personal history of other diseases of the digestive system; Z86.19 Personal history of other infectious and parasitic diseases; Z79.899 Other long term (current) drug therapy; Z98.51 Tubal ligation status; Z96.641 Presence of right artificial hip joint; Z98.890 Other specified postprocedural states; Z87.891 Personal history of nicotine dependence; Z80.0 Family history of malignant neoplasm of digestive organs
CPT/HCPCS: 43239; J2250; J3010; J7120; 88305; 88312; J2704

== ENCOUNTER 2017-03-31 08:59 | Emergency (ER) | payer BC ==
[2017-03-31] MEDS ORDERED: Sodium Chloride 0.9% 1,000 ML IV ONE (09:06)
[2017-03-31] MEDS ORDERED: Ondansetron 4 MG/2 ML SDV IVPUSH ONE (09:07)
[2017-03-31] MEDS ORDERED: Ketorolac 30 MG/ML SDV IVPUSH ONE (09:07)
--- NOTE | 2017-03-31 09:08 | EDM.PDOC ---
ED HPI GENERAL MEDICAL PROBLEM - General Chief Complaint: Abdominal Pain Stated Complaint: SICK Time Seen by Provider: 03/31/17 09:03 - History of Present Illness INITIAL COMMENTS - FREE TEXT/NARRATIVE: HISTORY AND PHYSICAL: History of present illness: Patient 56-year-old white female with history of peptic ulcer disease and history of H. pylori that was scoped and had a repeat scope that showed complete healing of her ulcer was seen by in the office this morning with right upper quadrant abdominal pain and nausea and center for evaluation of possible gallbladder disease she has not vomited she's had no diarrhea she denies chest pain or shortness of breath denies any other concern. Review of systems: As per history of present illness and below otherwise all systems reviewed and negative. Past medical history: As per history of present illness and as reviewed below otherwise noncontributory. Surgical history: As per history of present illness and as reviewed below otherwise noncontributory. Social history: No reported history of drug or alcohol abuse. Family history: As per history of present illness and as reviewed below otherwise noncontributory. Physical exam: HEENT: Atraumatic, normocephalic, pupils reactive, negative for conjunctival pallor or scleral icterus, mucous membranes moist, throat clear, neck supple, nontender, trachea midline. Lungs: Clear to auscultation, breath sounds equal bilaterally, chest nontender. Heart: S1S2, regular, negative for clicks, rubs, or JVD. Abdomen: Soft, nondistended, tenderness in the right upper quadrant to deep palpation no rebound or guarding. Negative for masses or hepatosplenomegaly. Negative for costovertebral tenderness. Pelvis: Stable nontender. Genitourinary: Deferred. Rectal: Deferred. Extremities: Atraumatic, negative for cords or calf pain. Neurovascular unremarkable. Neuro: Awake, alert, oriented. Cranial nerves II through XII unremarkable. Cerebellum unremarkable. Motor and sensory unremarkable throughout. Exam nonfocal. Diagnostics: CBC CMP lipase chest x-ray ultrasound right upper quadrant EKG Therapeutics: Normal saline 1 L bolus Zofran 4 mg IV Toradol 30 mg IV Impression: #1 right upper quadrant abdominal pain Definitive disposition and diagnosis as appropriate pending reevaluation and review of above. Upper Abdominal Pain Score (Numeric/FACES): 8 - Related Data Allergies Allergy/AdvReac Type Severity Reaction Status Date / Time No Known Allergies Allergy Verified 03/31/17 09:03 Home Meds: Home Meds Multivitamin [Multivitamins] 1 tab PO DAILY 03/22/15 [History] Past Medical History HEENT History: Reports: Allergic Rhinitis Other HEENT History: has upper partial removable denture Cardiovascular History: Reports: None Respiratory History: Reports: None Gastrointestinal History: Reports: Helicobacter Pylori, PUD Other Gastrointestinal History: hx gastric ulcer Genitourinary History: Reports: None 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 Musculoskeletal History: Reports: Arthritis Neurological History: Reports: Migraines Psychiatric History: Reports: None Endocrine/Metabolic History: Reports: None Hematologic History: Reports: Anemia Immunologic History: Reports: None Oncologic (Cancer) History: Reports: None Dermatologic History: Reports: None - Past Surgical History HEENT Surgical History: Reports: Tonsillectomy GI Surgical History: Reports: Colonoscopy, EGD Female Surgical History: Reports: Tubal Ligation Musculoskeletal Surgical History: Reports: Hip Replacement Other Musculoskeletal Surgeries/Procedures:: right ROSA Social & Family History - Family History Family Medical History: Noncontributory OBGYN: Reports: Musculoskeletal: Reports: Arthritis Oncologic: Reports: Breast, Colon - Tobacco Use Smoking Status *Q: Former Smoker Years of Tobacco use: 10 Packs/Tins Daily: 1 Used Tobacco, but Quit: Yes - Caffeine Use Caffeine Use: Reports: Coffee, Energy Drinks, Soda, Tea - Recreational Drug Use Recreational Drug Use: No Drug Use in Last 12 Months: No ED ROS GENERAL - Review of Systems Review Of Systems: ROS reveals no pertinent complaints other than HPI. ED EXAM, GENERAL - Physical Exam Exam: See Below (See dictation) Course - Vital Signs Last Recorded V/S: Last Vital Signs Temp 36.6 C 03/31/17 09:03 Pulse 70 03/31/17 10:45 Resp 18 03/31/17 10:45 BP 172/76 H 03/31/17 10:45 Pulse Ox 98 03/31/17 10:45 - Orders/Labs/Meds Orders: Active Orders 24 hr Category Date Time Status EKG 12 Lead [EKG Documentation Completion] [RC] STAT Care 03/31/17 09:07 Active Labs: Laboratory Tests 03/31/17 03/31/17 Range/Units 09:25 09:25 WBC 10.15 (4.0-11.0) K/uL RBC 4.98 (4.30-5.90) M/uL Hgb 11.7 L (12.0-16.0) g/dL Hct 37.7 (36.0-46.0) % MCV 75.7 L (80.0-98.0) fL MCH 23.5 L (27.0-32.0) pg MCHC 31.0 (31.0-37.0) g/dL RDW Std Deviation 48.7 (28.0-62.0) fl RDW Coeff of Juan Antonio 18 H (11.0-15.0) % Plt Count 486 H (150-400) K/uL MPV 8.50 (7.40-12.00) fL Neut % (Auto) 71.1 (48.0-80.0) % Lymph % (Auto) 19.7 (16.0-40.0) % [place] % (Auto) 6.1 (0.0-15.0) % Eos % (Auto) 2.3 (0.0-7.0) % Baso % (Auto) 0.8 (0.0-1.5) % Neut # (Auto) 7.2 H (1.4-5.7) K/uL Lymph # (Auto) 2.0 (0.6-2.4) K/uL [place] # (Auto) 0.6 (0.0-0.8) K/uL Eos # (Auto) 0.2 (0.0-0.7) K/uL Baso # (Auto) 0.1 (0.0-0.1) K/uL Nucleated RBC % 0.0 /100WBC Nucleated RBCs # 0 K/uL Sodium 140 (136-146) mmol/L Potassium 3.6 (3.5-5.1) mmol/L Chloride 107 (98-110) mmol/L Carbon Dioxide 24 (21-31) mmol/L BUN 9 (6.0-23.0) mg/dL Creatinine 0.7 (0.6-1.5) mg/dL Est Cr Clr Drug Dosing 62.92 mL/min Estimated GFR (MDRD) > 60.0 ml/min Glucose 120 H (60-110) mg/dL Calcium 9.5 (8.8-10.8) mg/dL Total Bilirubin 0.2 (0.1-1.5) mg/dL AST 15 (5-40) IU/L ALT 15 (8-54) IU/L Alkaline Phosphatase 98 (40-150) Total Protein 7.9 (6.0-8.0) g/dL Albumin 4.2 (3.5-5.0) g/dL Globulin 3.7 H (2.0-3.5) g/dL Albumin/Globulin Ratio 1.1 L (1.3-2.8) Lipase 20 (7-80) U/L Meds: Medications Discontinued Medications Generic Name Dose Route Start Last Admin Trade Name Freq PRN Reason Stop Dose Admin Sodium Chloride 1,000 mls @ 999 mls/hr 03/31/17 09:06 03/31/17 09:20 Normal Saline IV 03/31/17 10:06 999 mls/hr .Bolus ONE Administration Ketorolac Tromethamine 30 mg 03/31/17 09:07 03/31/17 09:24 Toradol IVPUSH 03/31/17 09:08 30 mg ONETIME ONE Administration Ondansetron HCl 4 mg 03/31/17 09:07 03/31/17 09:20 Zofran IVPUSH 03/31/17 09:08 4 mg ONETIME ONE Administration Departure - Departure Time of Disposition: 11:40 Disposition: Home, Self-Care 01 Condition: Good Clinical Impression: Abdominal pain - Discharge Information Referrals: PCP,None [Primary Care Provider] - Forms: ED Department Discharge Additional Instructions: The following information is given to patients seen in the emergency department who are being discharged to home. This information is to outline your options for follow-up care. We provide all patients seen in our emergency department with a follow-up referral. The need for follow-up, as well as the timing and circumstances, are variable depending upon the specifics of your emergency department visit. If you don't have a primary care physician on staff, we will provide you with a referral. We always advise you to contact your personal physician following an emergency department visit to inform them of the circumstance of the visit and for follow-up with them and/or the need for any referrals to a consulting specialist. The emergency department will also refer you to a specialist when appropriate. This referral assures that you have the opportunity for followup care with a specialist. All of these measure are taken in an effort to provide you with optimal care, which includes your followup. Under all circumstances we always encourage you to contact your private physician who remains a resource for coordinating your care. When calling for followup care, please make the office aware that this follow-up is from your recent emergency room visit. If for any reason you are refused follow-up, please contact the [facility] emergency department at and asked to speak to the emergency department charge nurse. [facility] - General Surgery Professional Building [address] [place] [address], [address] [place] [address] Keep appointment as scheduled with Dr. Shoemaker return as needed as discussed - My Orders Last 24 Hours: My Active Orders 03/31/17 09:07 EKG 12 Lead [EKG Documentation Completion] [RC] STAT - Assessment/Plan Last 24 Hours: My Active Orders 03/31/17 09:07 EKG 12 Lead [EKG Documentation Completion] [RC] STAT
--- NOTE | 2017-03-31 09:57 | CR ---
EXAMINATION: Portable chest radiograph. HISTORY: Pain. FINDINGS: The trachea is midline. The cardiomediastinal silhouette is within normal limits. No pulmonary infilt rates, effusions or pneumothorax. Osseous structures appear unremarkable. IMPRESSION: No acute cardiopulmonary process.
[2017-03-31 10:09] LABS: CHLORIDE,CL 107 mmol/L (98-110); SODIUM,NA 140 mmol/L (136-146)
--- NOTE | 2017-03-31 10:27 | US ---
EXAMINATION: Right upper quadrant ultrasound HISTORY: Pain COMPARISON: 02/26/2017 TECHNIQUE: Grayscale and color Doppler images obtained of the right upper quadrant. FINDINGS: The visualized pancreas appears normal. The liver is normal in contour and echogenicity wit hout a focal hepatic mass. The gallbladder wall thickness is normal. No pericholecystic fluid or shad owing gallstones. The common bile duct measures 2 mm. The right kidney measures at least 11.1 cm pole -to-pole without evidence of hydronephrosis. The mild renal cortical thinning. Negative sonographic M urphy's sign. IMPRESSION: Grossly unremarkable right upper quadrant ultrasound.
[2017-03-31 13:37] VITALS: BP 178/61
== END 2017-03-31 11:50 | disposition home or self-care (01) ==
LOC: MW.ED 08:59
DX: R10.11 Right upper quadrant pain (principal); Z86.2 Personal history of diseases of the blood and blood-forming organs and certain disorders involving the immune mechanism; Z98.890 Other specified postprocedural states; Z96.649 Presence of unspecified artificial hip joint; Z87.891 Personal history of nicotine dependence
CPT/HCPCS: 36415; 71010; 76705; 80053; 83690; 85025; 93005; 96361; 96374; 96375; 99285; J1885; J2405; J7040; 99283

== ENCOUNTER 2017-05-05 09:31 | Day surgery (SDC) | payer BC ==
[~2017-05-05 09:31] MED LIST changes: -Lidocaine 2% 5 ML SDV ONE; -Midazolam 1 MG/ML 2 ML SDV ONE; -Propofol 200 MG/20 ML SDV ONE; +cefOXitin 1 GM in Premix Bag 1 BAG IV ONE; -fentaNYL 100 MCG/2 ML SDV ONE
--- NOTE | 2017-05-05 10:15 | PCM.PREANE ---
Preanesthetic Assessment - Anesthesia/Transfusion/Family Hx Anesthesia History: Prior Anesthesia Without Reaction Family History of Anesthesia Reaction: No Transfusion History: No Prior Transfusion(s) Intubation History: Unknown - Review of Systems General: No Symptoms Pulmonary: No Symptoms Cardiovascular: No Symptoms Gastrointestinal: No Symptoms Neurological: No Symptoms Other: Reports: None - Physical Assessment O2 Sat by Pulse Oximetry: 96 Respiratory Rate: 16 Vital Signs: Last Vital Signs Temp 36.7 C 05/05/17 09:58 Pulse 78 05/05/17 09:58 Resp 16 05/05/17 09:58 BP 120/61 05/05/17 09:58 Pulse Ox 96 05/05/17 09:58 Height: 1.52 m Weight: 58.967 kg ASA Class: 2 Mental Status: Alert & Oriented x3 Airway Class: Mallampati = 2 Dentition: Reports: Normal Dentition, Partial (upper) Thyro-Mental Finger Breadths: 3 Mouth Opening Finger Breadths: 2 ROM/Head Extension: Full Lungs: Clear to Auscultation, Normal Respiratory Effort Cardiovascular: Regular Rate, Regular Rhythm - Allergies Allergies/Adverse Reactions: Allergies Allergy/AdvReac Type Severity Reaction Status Date / Time No Known Allergies Allergy Verified 03/31/17 09:03 - Blood Blood Available: No - Anesthesia Plan Pre-Op Medication Ordered: None - Acknowledgements Anesthesia Type Planned: General Anesthesia Pt an Appropriate Candidate for the Planned Anesthesia: Yes Alternatives and Risks of Anesthesia Discussed w Pt/Guardian: Yes Pt/Guardian Understands and Agrees with Anesthesia Plan: Yes PreAnesthesia Questionnaire HEENT History: Reports: Allergic Rhinitis Other HEENT History: has upper partial removable denture Cardiovascular History: Reports: None Respiratory History: Reports: None Gastrointestinal History: Reports: Diverticulosis, Helicobacter Pylori, PUD Other Gastrointestinal History: hx gastric ulcer Genitourinary History: Reports: None 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: 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: 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 Musculoskeletal History: Reports: Arthritis Neurological History: Reports: Migraines Psychiatric History: Reports: None Endocrine/Metabolic History: Reports: None Hematologic History: Reports: Anemia Immunologic History: Reports: None Oncologic (Cancer) History: Reports: None Dermatologic History: Reports: None - Infectious Disease History Infectious Disease History: Reports: Chicken Pox, Influenza, Measles - Past Surgical History Head Surgeries/Procedures: Reports: None HEENT Surgical History: Reports: Tonsillectomy Cardiovascular Surgical History: Reports: None Respiratory Surgical History: Reports: None GI Surgical History: Reports: Colonoscopy, EGD Female Surgical History: Reports: Tubal Ligation Endocrine Surgical History: Reports: None Neurological Surgical History: Reports: None Musculoskeletal Surgical History: Reports: Hip Replacement Other Musculoskeletal Surgeries/Procedures:: right ROSA Oncologic Surgical History: Reports: None Dermatological Surgical History: Reports: None - SUBSTANCE USE Smoking Status *Q: Former Smoker Tobacco Use Within Last Twelve Months: No Recreational Drug Use History: No - HOME MEDS Home Medications: Home Meds Multivitamin [Multivitamins] 1 tab PO DAILY 03/22/15 [History] Esomeprazole Magnesium [Nexium] 40 mg PO DAILY 04/30/17 [History] Sucralfate 1 tab PO QID 04/30/17 [History] - CURRENT (IN HOUSE) MEDS Current Meds: Current Medications Lactated Ringer's (Ringers, Lactated) 1,000 mls @ 125 mls/hr IV ASDIRECTED [facility] Last Admin: 05/05/17 09:57 Dose: 125 mls/hr Discontinued Medications Cefoxitin Sodium 1 gm/ Premix 50 mls @ 100 mls/hr IV ONETIME ONE Stop: 05/05/17 08:29
[2017-05-05] MEDS ORDERED: Scopolamine 1.5 MG Transdermal Patch TRDERM PRN (10:16)
[2017-05-05] MEDS ORDERED: Bupivacaine 0.5% 30 ML SDV ONE (11:11)
[2017-05-05] MEDS ORDERED: Lidocaine 2% 5 ML SDV ONE (11:14)
[2017-05-05] MEDS ORDERED: Rocuronium 10 MG/ML 10 ML Syringe ONE (11:14)
[2017-05-05] MEDS ORDERED: Ondansetron 4 MG/2 ML SDV ONE (11:14)
[2017-05-05] MEDS ORDERED: fentaNYL 100 MCG/2 ML SDV ONE (11:15)
[2017-05-05] MEDS ORDERED: Midazolam 1 MG/ML 2 ML SDV ONE (11:15)
[2017-05-05] MEDS ORDERED: Propofol 200 MG/20 ML SDV ONE (11:15)
[2017-05-05] MEDS ORDERED: HYDROmorphone 2 MG/ML Syringe ONE (11:54)
[2017-05-05] MEDS ORDERED: ceFAZolin 1 GM Vial ONE (12:01)
[2017-05-05] MEDS ORDERED: fentaNYL 100 MCG/2 ML SDV IVPUSH PRN ×2 (12:15→13:19)
[2017-05-05] MEDS ORDERED: Dexamethasone 4 MG/ML 5 ML MDV ONE (12:19)
[2017-05-05] MEDS ORDERED: Phenylephrine/Normal Saline 100 MCG/ML 10 ML Syringe ONE (12:20)
[2017-05-05] MEDS ORDERED: Ketorolac 30 MG/ML SDV ONE (12:40)
[2017-05-05] MEDS ORDERED: Acetaminophen/HYDROcodone 325-5 MG Tab PO PRN (13:02)
[2017-05-05] MEDS ORDERED: Morphine 10 MG/ML Syringe IVPUSH PRN (13:02)
--- NOTE | 2017-05-05 13:07 | PCM.OPNOTE ---
- General Post-Op/Procedure Note Date of Surgery/Procedure: 05/05/17 Operative Procedure(s): Laparoscopic cholecystectomy Pre Op Diagnosis: Chronic right upper quadrant pain. Biliary dyskinesia. Abnormal hepatobiliary scan. Post-Op Diagnosis: Same Anesthesia Technique: General ET Tube (ASA II) Primary Surgeon: Bao Shoemaker Fluid Replacement, Intraop: 2,000 EBL in mLs: 15 Condition: Good Free Text/Narrative:: Dictation [id number] CPT CODE [id number]
[2017-05-05] MEDS ORDERED: Lactated Ringers 1,000 ML IV SCH (13:15)
[2017-05-05] MEDS ORDERED: Ondansetron 4 MG Tab.DIS PO ONE (15:14)
[2017-05-05 16:50] VITALS: BP 122/57
--- NOTE | 2017-05-05 18:57 | OR ---
SURGEON: Bao Shoemaker M.D. DATE OF PROCEDURE: 05/05/2017 OPERATION PERFORMED: Laparoscopic cholecystectomy. ANESTHESIA: General endotracheal. ASA CLASSIFICATION: II. PREOPERATIVE DIAGNOSIS: Chronic right upper quadrant pain, abnormal HIDA scan, biliary dyskinesia. POSTOPERATIVE DIAGNOSIS: Chronic right upper quadrant pain, abnormal HIDA scan, biliary dyskinesia. ESTIMATED BLOOD LOSS: 15 mL. FLUID REPLACEMENT: 2000 mL of crystalloid. DESCRIPTION OF PROCEDURE: The patient was taken to the operating room and placed on the operating table in the supine position. Time-out was called for appropriate identification of patient and procedure. Thigh-high TEDs and sequential compression boots were placed. Following satisfactory attainment of general endotracheal anesthesia, a Gutierrez catheter was placed in the patient's urinary bladder. The abdomen was prepped with DuraPrep solution. Sterile drapes were applied. Skin below the umbilicus was infiltrated with 0.5% Marcaine solution. Skin incision was made and hemostasis obtained with the use of electrocautery. The Veress needle was introduced into the peritoneal cavity. Saline drop test was positive. Carbon dioxide pneumoperitoneum was established with the release set at 13 cm of water. Once we had a satisfactory pneumoperitoneum, 5 mm camera and port were placed through the infraumbilical incision. The patient was now positioned with her feet down and rolled to the left. Under camera vision, 12 mm subxiphoid, 5 mm midclavicular, and 5 mm anterior axillary ports were placed. Each incision had preemptively been infiltrated with 0.5% Marcaine solution. The gallbladder was grasped and a cholecystohepatic triangle was dissected free obtaining a good critical view of both the cystic duct and cystic artery. These structures were serially hemoclipped and divided with the laparoscopic Metzenbaum scissor. The gallbladder was dissected away from its bed using electrocautery. There was no spill of bile. There was some oozing from the bed of the gallbladder. The gallbladder bed was irrigated with 1% Ancef solution and all fluid aspirated. Surgicel was placed into the bed of the gallbladder. The right hemidiaphragm was then irrigated with 200 mL of saline with 20 mL of 0.5% Marcaine solution. That fluid was left in place. The Endopouch containing gallbladder was removed through the subxiphoid incision, removing the 12 mm port at the same time. Under camera vision, 5 mm midclavicular and anterior axillary ports were removed and finally the infraumbilical camera port were removed. Incisions were inspected for hemostasis. No bleeding was noted. The subxiphoid and infraumbilical incisions were closed in 2 layers approximating the subcutaneous tissue with 3-0 Polysorb, and the skin with subcuticular 4-0 Monocryl. The anterior axillary and midclavicular incisions were closed with subcuticular 4-0 Monocryl. All incisions were Steri-Stripped and dressed with sterile Tegaderm pads. Sponge, needle, and instrument counts were all correct. Prior to emergence from anesthesia and extubation, the Gutierrez catheter was removed. Following emergence from anesthesia and extubation, the patient was taken to recovery room in stable condition. RUBY STANLEY /[id number]
== END 2017-05-05 16:10 | disposition home or self-care (01) ==
LOC: MW.SDS 09:31
PROVIDERS: ATTEND Surgery
DX: K81.1 Chronic cholecystitis (principal); M16.11 Unilateral primary osteoarthritis, right hip; Z79.899 Other long term (current) drug therapy; Z96.641 Presence of right artificial hip joint; Z98.51 Tubal ligation status; Z90.89 Acquired absence of other organs; Z98.890 Other specified postprocedural states; Z87.891 Personal history of nicotine dependence
CPT/HCPCS: 47562; A9270; J0694; J1100; J1170; J1885; J2250; J2405; J3010; J7120; 00790; 88304; J0690; J2704

== ENCOUNTER 2018-09-13 16:38 | Inpatient (IN) | payer BC ==
[2018-09-13] MEDS ORDERED: Pantoprazole 40 MG Vial IVPUSH ONE (16:52)
[2018-09-13] MEDS ORDERED: Sodium Chloride 0.9% 1,000 ML IV ONE (16:52)
[2018-09-13] MEDS ORDERED: Sodium Chloride 0.9% 2.5 ML Syringe FLUSH PRN (16:52)
[2018-09-13] MEDS ORDERED: Sodium Chloride 0.9% 10 ML Syringe FLUSH PRN (16:52)
--- NOTE | 2018-09-13 16:58 | EDM.PDOC ---
ED HPI GENERAL MEDICAL PROBLEM - General Chief Complaint: Syncope Stated Complaint: WEAKNESS Time Seen by Provider: 09/13/18 16:40 - History of Present Illness INITIAL COMMENTS - FREE TEXT/NARRATIVE: HISTORY AND PHYSICAL: History of present illness: The patient is a [id number] female with a history of iron deficient anemia for which she has been followed by Dr. García in the clinic and who presents via EMS after a syncopal event which was brief while she was sitting watching the car race on television. The patient says she has been having intermittent nausea and some vomiting over the last few months and has had progressive weakness but today was sitting watching television when this occurred. She did have loss of urine with the event. She says she has not had black or bloody stools and did not admit to me that she has had any black or bloody vomitus but the pulled me aside to say that she vomited a few days ago and it looked very dark color to him. According to the history and the computer and the patient's history she was initially diagnosed the end of May with a low hemoglobin of 6.1 and a total iron of 7. She did not get a blood transfusion but did get transfused iron therapy. On July 30 her hemoglobin was repeated by Dr. Yanez and it was 10.8 and the iron was 24. At that Dr. García was going to repeat her blood work next month. She denies any leading gums bleeding in her urine or from her vagina and says that she has not had any bleeding from the rectum. She says she is eating and drinking but does not have much of an appetite and has not been eating very much the last few weeks. She has no headache chest pain or shortness of breath is when she is up moving around she does feel very lightheaded and dizzy and does sometimes get short of breath. She says she has not been very active due to progressive anemia and weakness. Currently in the ED she is declining any pain whatsoever including abdominal pain. Review of systems: As per history of present illness and below otherwise all systems reviewed and negative. Past medical history: As per history of present illness and as reviewed below otherwise noncontributory. Surgical history: As per history of present illness and as reviewed below otherwise noncontributory. Social history: No reported history of drug or alcohol abuse. Family history: As per history of present illness and as reviewed below otherwise noncontributory. Physical exam: General: Well-developed well-nourished female who is grossly pallorous on visual inspection but who is awake alert speaking to me and cooperative without any distress. She is nontoxic overall. Vital signs are noted by me HEENT: Atraumatic, normocephalic, pupils reactive, negative scleral icterus, conjunctiva are very pale, mucous membranes moist, throat clear, neck supple, nontender, trachea midline. Lungs: Clear to auscultation, breath sounds equal bilaterally, chest nontender. No worker breathing wheezing or stridor Heart: S1S2, regular, negative for clicks, rubs, or JVD. Abdomen: Soft, nondistended, nontender. Bowel sounds are normoactive and there is no rebound guarding or any tenderness on abdominal exam. Negative for masses or hepatosplenomegaly. Negative for costovertebral tenderness. Pelvis: Stable nontender. Genitourinary: Deferred. Rectal: There is scant stool in the vault but the mucus is Hemoccult negative there is normal tone Extremities: Atraumatic, negative for cords or calf pain. Neurovascular unremarkable. Neuro: Awake, alert, oriented. Cranial nerves II through XII unremarkable. Cerebellum unremarkable. Motor and sensory unremarkable throughout. Exam nonfocal. Skin: No rashes or lesions are seen and the patient is very pale with slightly diminished turgor Diagnostics: EKG CBC CMP INR lipase troponin type and screen chest x-ray UA Therapeutics: IV O2 monitor IV fluids Protonix blood products packed red blood cells Patient and at bedside are aware of critically low hemoglobin of 2.6. The patient is awake alert and mentating and I will order 3 units of packed red blood cells which we will check for availability to start either your in the ED or on admission. I discussed this case with Dr. Morelos at 1740 8 PM and he accepts the patient for inpatient admission. All labs have been reviewed by me as well as the chest x-ray the patient has not produced urine sample at this time. If the blood is available we will started here in the ED and if not we will arrange for her to be medially started on the patient's arrival to the floor. Aware that I did not start a Protonix drip and only gave one dose IV push and he is comfortable with that. Impression: Critical anemia with history of iron deficient anemia Definitive disposition and diagnosis as appropriate pending reevaluation and review of above. - Related Data Allergies Allergy/AdvReac Type Severity Reaction Status Date / Time No Known Allergies Allergy Verified 03/31/17 09:03 Home Meds: Home Meds Acetaminophen with Codeine [Tylenol with Codeine #3 Tablet] 1 tab ASDIRECTED 09/29 [History] Past Medical History HEENT History: Reports: Allergic Rhinitis Other HEENT History: has upper partial removable denture Cardiovascular History: Reports: None Respiratory History: Reports: None Gastrointestinal History: Reports: Diverticulosis, Helicobacter Pylori, PUD Other Gastrointestinal History: hx gastric ulcer Genitourinary History: Reports: None 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 Musculoskeletal History: Reports: Arthritis Neurological History: Reports: Migraines Psychiatric History: Reports: None Endocrine/Metabolic History: Reports: None Hematologic History: Reports: Anemia, Iron Deficiency Immunologic History: Reports: None Oncologic (Cancer) History: Reports: None Dermatologic History: Reports: None - Infectious Disease History Infectious Disease History: Reports: Chicken Pox, Influenza, Measles - Past Surgical History Head Surgeries/Procedures: Reports: None HEENT Surgical History: Reports: Tonsillectomy Cardiovascular Surgical History: Reports: None Respiratory Surgical History: Reports: None GI Surgical History: Reports: Colonoscopy, EGD Female Surgical History: Reports: Tubal Ligation Endocrine Surgical History: Reports: None Neurological Surgical History: Reports: None Musculoskeletal Surgical History: Reports: Hip Replacement Other Musculoskeletal Surgeries/Procedures:: right ROSA Oncologic Surgical History: Reports: None Dermatological Surgical History: Reports: None Social & Family History - Family History Family Medical History: Noncontributory OBGYN: Reports: Musculoskeletal: Reports: Arthritis Oncologic: Reports: Breast, Colon - Tobacco Use Smoking Status *Q: Never Smoker - Caffeine Use Caffeine Use: Reports: Coffee, Energy Drinks, Soda, Tea - Recreational Drug Use Recreational Drug Use: No ED ROS GENERAL - Review of Systems Review Of Systems: ROS reveals no pertinent complaints other than HPI. ED EXAM, GENERAL - Physical Exam Exam: See Below (See dictation) Course - Vital Signs Last Recorded V/S: Last Vital Signs Temp 36.4 C 09/13/18 16:40 Pulse 116 H 09/13/18 16:40 Resp 18 09/13/18 16:40 BP 137/65 09/13/18 16:40 Pulse Ox 97 09/13/18 16:51 - Orders/Labs/Meds Orders: Active Orders 24 hr Category Date Time Status Patient Status [ADT] Stat ADT 09/13/18 17:50 Ordered Blood Glucose Check, Bedside [RC] ONETIME Care 09/13/18 16:51 Active Cardiac Monitoring [RC] . DIRECTED Care 09/13/18 16:51 Active Communication Order [RC] STAT Care 09/13/18 16:51 Active EKG Documentation Completion [RC] STAT Care 09/13/18 16:51 Active Oxygen Therapy, ED [RC] ASDIRECTED Care 09/13/18 16:51 Active Pulse Oximetry [RC] ASDIRECTED Care 09/13/18 16:51 Active RED BLOOD CELLS LP [BBK] Stat Lab 09/13/18 17:05 Received TYPE AND SCREEN [BBK] Stat Lab 09/13/18 17:05 Received UA RFX JIMMY AND CULT IF INDIC [URIN] Stat Lab 09/13/18 16:52 Ordered Sodium Chloride 0.9% [Saline Flush] Med 09/13/18 16:52 Active 10 ml FLUSH ASDIRECTED PRN Sodium Chloride 0.9% [Saline Flush] Med 09/13/18 16:52 Active 2.5 ml FLUSH ASDIRECTED PRN Saline Lock Insert [OM.PC] Stat Oth 09/13/18 16:51 Ordered Transfuse PRBC [Transfuse Red Blood Cells] [COMM] Stat Oth 09/13/18 17:39 Ordered Medication Orders Sodium Chloride (Saline Flush) 10 ml FLUSH ASDIRECTED PRN PRN Reason: Keep Vein Open Sodium Chloride (Saline Flush) 2.5 ml FLUSH ASDIRECTED PRN PRN Reason: Keep Vein Open Labs: Laboratory Tests 09/13/18 09/13/18 09/13/18 Range/Units 17:05 17:05 17:05 WBC 17.69 H (4.0-11.0) K/uL RBC 1.37 L (4.30-5.90) M/uL Hgb 2.6 L* (12.0-16.0) g/dL Hct 9.6 L (36.0-46.0) % MCV 70.1 L (80.0-98.0) fL MCH 19.0 L (27.0-32.0) pg MCHC 27.1 L (31.0-37.0) g/dL RDW Std Deviation 55.9 (28.0-62.0) fl RDW Coeff of Juan Antonio 22 H (11.0-15.0) % Plt Count 525 H (150-400) K/uL MPV 7.70 (7.40-12.00) fL Add Manual Diff YES Neutrophils % (Manual) 79 (48.0-80.0) % Band Neutrophils % 2 % Lymphocytes % (Manual) 13 L (16.0-40.0) % Monocytes % (Manual) 2 (0.0-15.0) % Basophils % (Manual) 1 (0.0-1.5) % Metamyelocytes % 3 % Nucleated RBC % 0.2 /100WBC Absolute Seg Neuts 14.0 H (1.4-5.7) Band Neutrophils # 0.4 Lymphocytes # (Manual) 2.3 (0.6-2.4) Monocytes # (Manual) 0.4 (0.0-0.8) Basophils # (Manual) 0.2 H (0.0-0.1) Absolute Metamyelocyte 0.5 Nucleated RBCs # 0 K/uL INR 1.05 Sodium 140 (136-145) mmol/L Potassium 3.4 L (3.5-5.1) mmol/L Chloride 106 (98-107) mmol/L Carbon Dioxide 22.5 (21.0-32.0) mmol/L BUN 15 (7.0-18.0) mg/dL Creatinine 0.7 (0.6-1.0) mg/dL Est Cr Clr Drug Dosing TNP Estimated GFR (MDRD) > 60.0 ml/min Glucose 135 H (74-106) mg/dL Calcium 7.7 L (8.5-10.1) mg/dL Total Bilirubin 0.1 L (0.2-1.0) mg/dL AST 9 L (15-37) IU/L ALT 14 (14-63) IU/L Alkaline Phosphatase 59 (46-116) U/L Troponin I < 0.050 (0.000-0.056) ng/mL Total Protein 5.4 L (6.4-8.2) g/dL Albumin 2.2 L (3.4-5.0) g/dL Globulin 3.2 (2.6-4.0) g/dL Albumin/Globulin Ratio 0.7 L (0.9-1.6) Lipase 167 (73-393) U/L Meds: Medications Generic Name Dose Route Start Last Admin Trade Name Freq PRN Reason Stop Dose Admin Sodium Chloride 10 ml 09/13/18 16:52 Saline Flush FLUSH ASDIRECTED PRN Keep Vein Open Sodium Chloride 2.5 ml 09/13/18 16:52 Saline Flush FLUSH ASDIRECTED PRN Keep Vein Open Discontinued Medications Generic Name Dose Route Start Last Admin Trade Name Freq PRN Reason Stop Dose Admin Sodium Chloride 1,000 mls @ 999 mls/hr 09/13/18 16:52 09/13/18 17:12 Normal Saline IV 09/13/18 17:52 999 mls/hr STAT ONE Administration Sodium Chloride Confirm 09/13/18 17:07 09/13/18 17:12 Normal Saline Administered 09/13/18 17:08 20 mls/hr Dose Administration 20 mls @ as directed .ROUTE .STK-MED ONE Pantoprazole Sodium 80 mg 09/13/18 16:52 09/13/18 17:12 Protonix Iv IVPUSH 09/13/18 16:53 80 mg .BOLUS ONE Administration Sterile Water 20 ml 09/13/18 17:00 09/13/18 17:11 Sterile Water For Injection INJECT 09/13/18 17:01 Not Given ONETIME STA Departure - Departure Time of Disposition: 17:53 Disposition: Admitted As Inpatient 64 Condition: Good Clinical Impression: Anemia Qualifiers: Anemia type: unspecified type Qualified Code(s): D64.9 - Anemia, unspecified - Discharge Information Referrals: Neivlle García MD [Primary Care Provider] - Forms: ED Department Discharge - My Orders Last 24 Hours: My Active Orders 09/13/18 16:51 Blood Glucose Check, Bedside [RC] ONETIME Cardiac Monitoring [RC] . DIRECTED Communication Order [RC] STAT EKG Documentation Completion [RC] STAT Oxygen Therapy, ED [RC] ASDIRECTED Pulse Oximetry [RC] ASDIRECTED Saline Lock Insert [OM.PC] Stat 09/13/18 16:52 UA RFX JIMMY AND CULT IF INDIC [URIN] Stat Sodium Chloride 0.9% [Saline Flush] 10 ml FLUSH ASDIRECTED PRN Sodium Chloride 0.9% [Saline Flush] 2.5 ml FLUSH ASDIRECTED PRN 09/13/18 17:05 RED BLOOD CELLS LP [BBK] Stat TYPE AND SCREEN [BBK] Stat 09/13/18 17:39 Transfuse PRBC [Transfuse Red Blood Cells] [COMM] Stat 09/13/18 17:50 Patient Status [ADT] Stat - Assessment/Plan Last 24 Hours: My Active Orders 09/13/18 16:51 Blood Glucose Check, Bedside [RC] ONETIME Cardiac Monitoring [RC] . DIRECTED Communication Order [RC] STAT EKG Documentation Completion [RC] STAT Oxygen Therapy, ED [RC] ASDIRECTED Pulse Oximetry [RC] ASDIRECTED Saline Lock Insert [OM.PC] Stat 09/13/18 16:52 UA RFX JIMMY AND CULT IF INDIC [URIN] Stat Sodium Chloride 0.9% [Saline Flush] 10 ml FLUSH ASDIRECTED PRN Sodium Chloride 0.9% [Saline Flush] 2.5 ml FLUSH ASDIRECTED PRN 09/13/18 17:05 RED BLOOD CELLS LP [BBK] Stat TYPE AND SCREEN [BBK] Stat 09/13/18 17:39 Transfuse PRBC [Transfuse Red Blood Cells] [COMM] Stat 09/13/18 17:50 Patient Status [ADT] Stat
[2018-09-13] MEDS ORDERED: Water For Injection, Sterile 20 ML SDV INJECT STA (17:00)
[2018-09-13] MEDS ORDERED: Sodium Chloride 0.9% 20 ML ONE (17:07)
[2018-09-13 17:37] LABS: CHLORIDE,CL 106 mmol/L (98-107); SODIUM,NA 140 mmol/L (136-145)
--- NOTE | 2018-09-13 17:42 | CR ---
HISTORY: Chest pain. Shortness of breath. TECHNIQUE: Portable frontal view the chest. COMPARISON: None. FINDINGS: No airspace consolidation. No pleural effusion or pneumothorax. Pulmonary vasculature and cardiomediastinal silhouette are within normal limits. IMPRESSION: No acute findings. Dictated by Efra Erazo MD @ Sep 13 2018 5:39PM Signed by Dr. Efra Erazo @ Sep 13 2018 5:40PM
[2018-09-13] MEDS ORDERED: diphenhydrAMINE 50 MG Cap PO ONE (18:23)
[2018-09-13] MEDS ORDERED: Acetaminophen 325 MG Tab PO ONE (18:23)
[2018-09-13] MEDS ORDERED: Sodium Chloride 0.9% 1,000 ML IV SCH (18:30)
[2018-09-13] MEDS ORDERED: Furosemide 20 MG/2 ML VIAL IVPUSH SCH (20:00)
--- NOTE | 2018-09-14 00:30 | PCM.HP ---
H&P History of Present Illness - General Date of Service: 09/14/18 Admit Problem/Dx: Admission Diagnosis/Problem Admission Diagnosis/Problem Anemia, profound iron deficiency Source of Information: Patient, Family History Limitations: Reports: No Limitations - History of Present Illness Initial Comments - Free Text/Narative: The patient is a 58-year-old lady who had presented to the emergency department secondary to a syncopal event while she was watching television. The patient does have a history of iron deficiency anemia and she has been followed by local physician. The patient previously had had a hemoglobin around 6 and this was treated preliminarily with iron supplements. In the emergency room her hemoglobin was tested at 2.6 g/dL. The patient says that she has not been able to take iron as this bothers her stomach. Patient denied any black or bloody stools but was concerned about possible gastric ulcer. The patient reports that she knows that she is iron deficient and further says that she has a very poor appetite. Prior to presentation the patient was also having difficulty with lightheadedness and dizziness and some shortness of breath when standing up. The patient has denied any pain. The patient also has denied any nausea or vomiting. She has no other complaints at this time. Onset of Symptoms: Reports: Gradual Duration of Symptoms: Reports: Week(s): Improves with: Reports: Rest Worsens with: Reports: Movement Associated Symptoms: Reports: Headaches, Shortness of Breath, Syncope - Related Data Allergies/Adverse Reactions: Allergies Allergy/AdvReac Type Severity Reaction Status Date / Time No Known Allergies Allergy Verified 03/31/17 09:03 Home Medications: Home Meds Acetaminophen with Codeine [Tylenol with Codeine #3 Tablet] 1 tab ASDIRECTED 09/29 [History] Past Medical History HEENT History: Reports: Allergic Rhinitis Other HEENT History: has upper partial removable denture Cardiovascular History: Reports: None Respiratory History: Reports: None Gastrointestinal History: Reports: Diverticulosis, Helicobacter Pylori, PUD Other Gastrointestinal History: hx gastric ulcer Genitourinary History: Reports: None [employer] History: Reports: None Musculoskeletal History: Reports: Arthritis Neurological History: Reports: Migraines Psychiatric History: Reports: None Endocrine/Metabolic History: Reports: None Hematologic History: Reports: Anemia, Iron Deficiency Immunologic History: Reports: None Oncologic (Cancer) History: Reports: None Dermatologic History: Reports: None - Infectious Disease History Infectious Disease History: Reports: Chicken Pox, Influenza, Measles - Past Surgical History Head Surgeries/Procedures: Reports: None HEENT Surgical History: Reports: Tonsillectomy Cardiovascular Surgical History: Reports: None Respiratory Surgical History: Reports: None GI Surgical History: Reports: Colonoscopy, EGD Female Surgical History: Reports: Tubal Ligation Endocrine Surgical History: Reports: None Neurological Surgical History: Reports: None Musculoskeletal Surgical History: Reports: Hip Replacement Other Musculoskeletal Surgeries/Procedures:: right ROSA Oncologic Surgical History: Reports: None Dermatological Surgical History: Reports: None Social & Family History - Family History Family Medical History: Noncontributory OBGYN: Reports: Musculoskeletal: Reports: Arthritis Oncologic: Reports: Breast, Colon - Tobacco Use Smoking Status *Q: Former Smoker Used Tobacco, but Quit: Yes Month/Year Tobacco Last Used: 2008 Second Hand Smoke Exposure: No - Caffeine Use Caffeine Use: Reports: Coffee, Soda, Tea - Alcohol Use Date of Last Drink: 08/30/18 - Recreational Drug Use Recreational Drug Use: No - Living Situation & Occupation Living situation: Reports: , with Spouse Occupation: Employed H&P Review of Systems - Review of Systems: Review Of Systems: See Below General: Reports: Malaise, Weakness, Decreased Appetite HEENT: Reports: No Symptoms Pulmonary: Reports: Shortness of Breath Cardiovascular: Reports: Chest Pain Gastrointestinal: Reports: Anorexia. Denies: Black Stool, Bloody Stool, Hematemesis, Hematochezia Genitourinary: Reports: No Symptoms Musculoskeletal: Reports: No Symptoms Skin: Reports: Pallor Psychiatric: Reports: No Symptoms Neurological: Reports: No Symptoms Hematologic/Lymphatic: Reports: No Symptoms Immunologic: Reports: No Symptoms Exam - Exam Exam: See Below - Vital Signs Vital Signs: Last Vital Signs Temp 36.4 C 09/14/18 00:19 Pulse 83 09/14/18 00:19 Resp 18 09/14/18 00:19 BP 122/58 L 09/14/18 00:19 Pulse Ox 96 09/14/18 00:19 Weight: 54.5 kg - Exam Quality Assessment: No: Supplemental Oxygen General: Alert, Oriented, Cooperative HEENT: Conjunctiva Clear, EACs Clear, EOMI, Pupils Equal, PERRLA. No: Mucosa Moist & [place] (Moist and pale) Neck: Supple, Trachea Midline Lungs: Clear to Auscultation, Normal Respiratory Effort Cardiovascular: Regular Rhythm, Tachycardia GI/Abdominal Exam: Normal Bowel Sounds, Soft, No Distention (Female) Exam: Deferred Rectal (Female) Exam: Deferred Back Exam: Normal Inspection, Full Range of Motion Extremities: Normal Inspection, No Pedal Edema Skin: Warm, Dry, Intact, Other (Generalized pallor) Neurological: Cranial Nerves Intact Neuro Extensive - Mental Status: Alert Neuro Extensive - Motor, Sensory, Reflexes: CN II-XII Intact Psychiatric: Alert, Normal Affect, Normal Mood - Patient Data Lab Results Last 24 hrs: Laboratory Results - last 24 hr 09/13/18 09/13/18 09/13/18 Range/Units 17:05 17:05 17:05 WBC 17.69 H (4.0-11.0) K/uL RBC 1.37 L (4.30-5.90) M/uL Hgb 2.6 L* (12.0-16.0) g/dL Hct 9.6 L (36.0-46.0) % MCV 70.1 L (80.0-98.0) fL MCH 19.0 L (27.0-32.0) pg MCHC 27.1 L (31.0-37.0) g/dL RDW Std Deviation 55.9 (28.0-62.0) fl RDW Coeff of Juan Antonio 22 H (11.0-15.0) % Plt Count 525 H (150-400) K/uL MPV 7.70 (7.40-12.00) fL Add Manual Diff YES Neutrophils % (Manual) 79 (48.0-80.0) % Band Neutrophils % 2 % Lymphocytes % (Manual) 13 L (16.0-40.0) % Monocytes % (Manual) 2 (0.0-15.0) % Basophils % (Manual) 1 (0.0-1.5) % Metamyelocytes % 3 % Nucleated RBC % 0.2 /100WBC Absolute Seg Neuts 14.0 H (1.4-5.7) Band Neutrophils # 0.4 Lymphocytes # (Manual) 2.3 (0.6-2.4) Monocytes # (Manual) 0.4 (0.0-0.8) Basophils # (Manual) 0.2 H (0.0-0.1) Absolute Metamyelocyte 0.5 Nucleated RBCs # 0 K/uL INR 1.05 Sodium 140 (136-145) mmol/L Potassium 3.4 L (3.5-5.1) mmol/L Chloride 106 (98-107) mmol/L Carbon Dioxide 22.5 (21.0-32.0) mmol/L BUN 15 (7.0-18.0) mg/dL Creatinine 0.7 (0.6-1.0) mg/dL Est Cr Clr Drug Dosing TNP Estimated GFR (MDRD) > 60.0 ml/min Glucose 135 H (74-106) mg/dL Calcium 7.7 L (8.5-10.1) mg/dL Iron (50-175) ug/dL TIBC (250-450) ug/dL % Saturation (20-55) % Ferritin (8-252) ng/mL Total Bilirubin 0.1 L (0.2-1.0) mg/dL AST 9 L (15-37) IU/L ALT 14 (14-63) IU/L Alkaline Phosphatase 59 (46-116) U/L Troponin I < 0.050 (0.000-0.056) ng/mL Total Protein 5.4 L (6.4-8.2) g/dL Albumin 2.2 L (3.4-5.0) g/dL Globulin 3.2 (2.6-4.0) g/dL Albumin/Globulin Ratio 0.7 L (0.9-1.6) Lipase 167 (73-393) U/L Urine Color Urine Appearance Urine pH (5.0-8.0) Ur Specific [place] (1.001-1.035) Urine Protein (NEGATIVE) mg/dL Urine Glucose (UA) (NEGATIVE) mg/dL Urine Ketones (NEGATIVE) mg/dL Urine Occult Blood (NEGATIVE) Urine Nitrite (NEGATIVE) Urine Bilirubin (NEGATIVE) Urine Urobilinogen (<2.0) EU/dL Ur Leukocyte Esterase (NEGATIVE) Urine RBC (0-2/HPF) Urine WBC (0-5/HPF) Ur Epithelial Cells (NONE-FEW) Urine Bacteria (NEGATIVE) Blood Type Antibody Screen Crossmatch 09/13/18 09/13/18 09/13/18 Range/Units 17:05 17:05 22:45 WBC (4.0-11.0) K/uL RBC (4.30-5.90) M/uL Hgb (12.0-16.0) g/dL Hct (36.0-46.0) % MCV (80.0-98.0) fL MCH (27.0-32.0) pg MCHC (31.0-37.0) g/dL RDW Std Deviation (28.0-62.0) fl RDW Coeff of [place] (11.0-15.0) % Plt Count (150-400) K/uL MPV (7.40-12.00) fL Add Manual Diff Neutrophils % (Manual) (48.0-80.0) % Band Neutrophils % % Lymphocytes % (Manual) (16.0-40.0) % Monocytes % (Manual) (0.0-15.0) % Basophils % (Manual) (0.0-1.5) % Metamyelocytes % % Nucleated RBC % /100WBC Absolute Seg Neuts (1.4-5.7) Band Neutrophils # Lymphocytes # (Manual) (0.6-2.4) Monocytes # (Manual) (0.0-0.8) Basophils # (Manual) (0.0-0.1) Absolute Metamyelocyte Nucleated RBCs # K/uL INR Sodium (136-145) mmol/L Potassium (3.5-5.1) mmol/L Chloride (98-107) mmol/L Carbon Dioxide (21.0-32.0) mmol/L BUN (7.0-18.0) mg/dL Creatinine (0.6-1.0) mg/dL Est Cr Clr Drug Dosing Estimated GFR (MDRD) ml/min Glucose (74-106) mg/dL Calcium (8.5-10.1) mg/dL Iron 9 L (50-175) ug/dL TIBC 273 (250-450) ug/dL % Saturation 3.30 L (20-55) % Ferritin 4 L (8-252) ng/mL Total Bilirubin (0.2-1.0) mg/dL AST (15-37) IU/L ALT (14-63) IU/L Alkaline Phosphatase (46-116) U/L Troponin I (0.000-0.056) ng/mL Total Protein (6.4-8.2) g/dL Albumin (3.4-5.0) g/dL Globulin (2.6-4.0) g/dL Albumin/Globulin Ratio (0.9-1.6) Lipase (73-393) U/L Urine Color YELLOW Urine Appearance HAZY Urine pH 6.0 (5.0-8.0) Ur Specific [place] <= 1.005 (1.001-1.035) Urine Protein NEGATIVE (NEGATIVE) mg/dL Urine Glucose (UA) NEGATIVE (NEGATIVE) mg/dL Urine Ketones NEGATIVE (NEGATIVE) mg/dL Urine Occult Blood NEGATIVE (NEGATIVE) Urine Nitrite NEGATIVE (NEGATIVE) Urine Bilirubin NEGATIVE (NEGATIVE) Urine Urobilinogen 0.2 (<2.0) EU/dL Ur Leukocyte Esterase SMALL H (NEGATIVE) Urine RBC 0-2 (0-2/HPF) Urine WBC 2-4 (0-5/HPF) Ur Epithelial Cells FEW (NONE-FEW) Urine Bacteria FEW (NEGATIVE) Blood Type A NEGATIVE Antibody Screen NEGATIVE Crossmatch See Detail Result Diagrams: 09/14/18 05:12 09/13/18 17:05 - Problem List (1) Anemia SNOMED Code(s): 053754065 ICD Code: D64.9 - ANEMIA, UNSPECIFIED Status: Acute Priority: High Current Visit: Yes Qualifiers: Anemia type: iron deficiency Iron deficiency anemia type: unspecified iron deficiency Qualified Code(s): D50.9 - Iron deficiency anemia, unspecified (2) Thrombocytosis SNOMED Code(s): 5024519 ICD Code: D47.3 - ESSENTIAL (HEMORRHAGIC) THROMBOCYTHEMIA Status: Acute Current Visit: Yes (3) UTI (urinary tract infection) SNOMED Code(s): 96345523 ICD Code: N39.0 - URINARY TRACT INFECTION, SITE NOT SPECIFIED Status: Acute Priority: High Current Visit: Yes Qualifiers: Urinary tract infection type: acute cystitis Hematuria presence: without hematuria Qualified Code(s): N30.00 - Acute cystitis without hematuria Problem List Initiated/Reviewed/Updated: Yes Orders Last 24hrs: Active Orders 24 hr Category Date Time Status Patient Status [ADT] Stat ADT 09/13/18 17:50 Active Cardiac Monitoring [RC] . DIRECTED Care 09/13/18 18:00 Active Telemetry Monitoring [Cardiac Monitoring] [RC] . Care 09/13/18 18:25 Active DIRECTED Telemetry Monitoring [Cardiac Monitoring] [RC] Q8H Care 09/13/18 18:00 Active Regular Diet [DIET] Diet 09/13/18 Dinner Active CULTURE URINE [RM] Stat Lab 09/13/18 22:45 Received Furosemide [Lasix] Med 09/13/18 20:00 Active 20 mg IVPUSH DAILY Sodium Chloride 0.9% [Normal Saline] 1,000 ml Med 09/13/18 18:30 Active IV ASDIRECTED Sodium Chloride 0.9% [Saline Flush] Med 09/13/18 16:52 Active 10 ml FLUSH ASDIRECTED PRN Sodium Chloride 0.9% [Saline Flush] Med 09/13/18 16:52 Active 2.5 ml FLUSH ASDIRECTED PRN Saline Lock Insert [OM.PC] Stat Ot 09/13/18 16:51 Ordered Transfuse PRBC [Transfuse Red Blood Cells] [COMM] Stat Ot 09/13/18 17:39 Ordered Medication Orders Furosemide (Lasix) 20 mg IVPUSH DAILY [facility] Last Admin: 09/13/18 23:29 Dose: 20 mg Sodium Chloride (Normal Saline) 1,000 mls @ 50 mls/hr IV ASDIRECTED [facility] Last Admin: 09/13/18 19:00 Dose: 50 mls/hr Sodium Chloride (Saline Flush) 10 ml FLUSH ASDIRECTED PRN PRN Reason: Keep Vein Open Sodium Chloride (Saline Flush) 2.5 ml FLUSH ASDIRECTED PRN PRN Reason: Keep Vein Open Assessment/Plan Comment:: The patient is a 58-year-old lady who had been admitted by marty out of concern for profound anemia. In the emergency department the patient had a hemoglobin of 2.6 g/dL and she had been ordered to have transfusion of 3 units of packed red blood cells. The patient also had rectal examination in the ER which showed no stool in the rectal vault with the mucus being tested negative for occult blood. An additional 2 units of packed red blood cells were ordered. The patient was admitted as an inpatient. Is also noted that the patient has a mild urinary tract infection and she will be treated with Rocephin 1 g every 24 hours. The patient will be kept on a regular diet as tolerated. She's been encouraged to ambulate. Secondary to the patient's syncope and her dizziness and lightheadedness mechanical SCDs are contraindicated as she is at risk for falls. Pharmacological DVT prophylaxis is also contraindicated due to her profound anemia. Iron studies were ordered prior to blood transfusion and results of been noted. The patient has been recommended for further workup with regards to excluding or including pernicious anemia. The patient should also follow up with heme oncology with regards to bone marrow biopsy and possible GI intervention. I've also recommended that the patient have 200 g of iron sucrose while in hospital. The patient should be appropriate for discharge in 1-2 days.
[2018-09-14] MEDS ORDERED: Temazepam 15 MG Cap PO PRN (00:38)
[2018-09-14] MEDS ORDERED: oxyCODONE 5 MG Tab PO PRN (00:38)
[2018-09-14] MEDS ORDERED: diphenhydrAMINE 50 MG Cap PO ONE (00:50)
--- NOTE | 2018-09-14 08:52 | PCM.DCSUM1 ---
Discharge Summary - Hospital Course Free Text/Narrative:: Admitted for profound anemia Diagnosis: Stroke: No - Discharge Data Discharge Date: 09/14/18 Discharge Disposition: Home, Self-Care 01 Condition: Good - Discharge Diagnosis/Problem(s) (1) Anemia SNOMED Code(s): 127034996 ICD Code: D64.9 - ANEMIA, UNSPECIFIED Status: Chronic Priority: High Current Visit: Yes Qualifiers: Anemia type: iron deficiency Iron deficiency anemia type: unspecified iron deficiency Qualified Code(s): D50.9 - Iron deficiency anemia, unspecified (2) Thrombocytosis SNOMED Code(s): 1457384 ICD Code: D47.3 - ESSENTIAL (HEMORRHAGIC) THROMBOCYTHEMIA Status: Chronic Priority: Medium Current Visit: Yes (3) UTI (urinary tract infection) SNOMED Code(s): 40400751 ICD Code: N39.0 - URINARY TRACT INFECTION, SITE NOT SPECIFIED Status: Acute Priority: High Current Visit: Yes Qualifiers: Urinary tract infection type: acute cystitis Hematuria presence: without hematuria Qualified Code(s): N30.00 - Acute cystitis without hematuria - Patient Summary/Data Hospital Course: The patient is a 58-year-old lady who had presented to the emergency department secondary to a syncopal event while she was watching television. The patient does have a history of iron deficiency anemia and she has been followed by local physician. The patient previously had had a hemoglobin around 6 and this was treated preliminarily with iron supplements. In the emergency room her hemoglobin was tested at 2.6 g/dL. The patient says that she has not been able to take iron as this bothers her stomach. Patient denied any black or bloody stools but was concerned about possible gastric ulcer. The patient reports that she knows that she is iron deficient and further says that she has a very poor appetite. Prior to presentation the patient was also having difficulty with lightheadedness and dizziness and some shortness of breath when standing up. The patient has denied any pain.Upon her admission the patient initially had a hemoglobin of 2.6 g/dL with a hematocrit of 9.6%. She had received 3 units of packed red blood cells hemoglobin had recovered to 8.1 g/dL. The patient's symptoms had improved significantly. She also felt short of breath or had any pain. The patient also has been noted to have very mild leukocyte esterase in her urine and she'll be discharged on ciprofloxacin 500 mg by mouth twice a day for 5 days. The patient also had 100 mg of iron sucrose infused prior to discharge. She had been tolerating her diet. The patient has been recommended to follow-up with heme oncology for possible bone marrow biopsy to rule out pernicious anemia. The patient's iron was noted to be low at 9 mcg/dL and her iron saturation was at 3.3%. Ferritin was also low at 4. She also has been complaining of several years worth of nausea and vomiting and further have recommended that she follow-up with gastroenterology for this as well. The patient also has been recommended follow-up with her primary care physician. She has been tolerating her diet and she's been recommended continue with her heart healthy diet. She is also to have activity as tolerated. Throughout the course of hospitalization the patient had been hemodynamically stable although she was tachycardic initially. She has been discharged from acute hospitalization in stable condition with recommendations listed above. - Patient Instructions Diet: Heart Healthy Diet Activity: As Tolerated - Discharge Plan *PRESCRIPTION DRUG MONITORING PROGRAM REVIEWED*: No *COPY OF PRESCRIPTION DRUG MONITORING REPORT IN PATIENT MELISSA: No Prescriptions/Med Rec: Ciprofloxacin [Ciprofloxacin HCl] 500 mg PO BID #10 tab Home Medications: Home Meds Acetaminophen with Codeine [Tylenol with Codeine #3 Tablet] 1 tab ASDIRECTED 09/29 [History] Ciprofloxacin [Ciprofloxacin HCl] 500 mg PO BID #10 tab 09/14/18 [Rx] Patient Handouts: Blood Transfusion, Adult, [id number] Referrals: Neville García MD [Primary Care Provider] - - Discharge Summary/Plan Comment DC Time >30 min.: Yes - General Info Date of Service: 09/14/18 Admission Dx/Problem (Free Text: Admission Diagnosis/Problem Admission Diagnosis/Problem Anemia, profound iron deficiency Functional Status: Reports: Pain Controlled - Review of Systems General: Reports: No Symptoms HEENT: Reports: No Symptoms Pulmonary: Reports: No Symptoms Cardiovascular: Reports: No Symptoms Gastrointestinal: Reports: No Symptoms Genitourinary: Reports: No Symptoms Musculoskeletal: Reports: No Symptoms Skin: Reports: No Symptoms Neurological: Reports: No Symptoms Psychiatric: Reports: No Symptoms - Patient Data Vitals - Most Recent: Last Vital Signs Temp 37.1 C 09/14/18 03:30 Pulse 80 09/14/18 03:30 Resp 16 09/14/18 03:30 BP 116/56 L 09/14/18 03:30 Pulse Ox 97 09/14/18 03:30 Weight - Most Recent: 54.5 kg I&O - Last 24 hours: Intake & Output 09/13/18 09/14/18 09/14/18 22:59 06:59 14:59 Intake Total 310 1150 Output Total 3100 Balance 310 -1950 Lab Results - Last 24 hrs: Laboratory Results - last 24 hr 09/13/18 09/13/18 09/13/18 Range/Units 17:05 17:05 17:05 WBC 17.69 H (4.0-11.0) K/uL RBC 1.37 L (4.30-5.90) M/uL Hgb 2.6 L* (12.0-16.0) g/dL Hct 9.6 L (36.0-46.0) % MCV 70.1 L (80.0-98.0) fL MCH 19.0 L (27.0-32.0) pg MCHC 27.1 L (31.0-37.0) g/dL RDW Std Deviation 55.9 (28.0-62.0) fl RDW Coeff of Juan Antonio 22 H (11.0-15.0) % Plt Count 525 H (150-400) K/uL MPV 7.70 (7.40-12.00) fL Add Manual Diff YES Neutrophils % (Manual) 79 (48.0-80.0) % Band Neutrophils % 2 % Lymphocytes % (Manual) 13 L (16.0-40.0) % Monocytes % (Manual) 2 (0.0-15.0) % Basophils % (Manual) 1 (0.0-1.5) % Metamyelocytes % 3 % Nucleated RBC % 0.2 /100WBC Absolute Seg Neuts 14.0 H (1.4-5.7) Band Neutrophils # 0.4 Lymphocytes # (Manual) 2.3 (0.6-2.4) Monocytes # (Manual) 0.4 (0.0-0.8) Basophils # (Manual) 0.2 H (0.0-0.1) Absolute Metamyelocyte 0.5 Nucleated RBCs # 0 K/uL INR 1.05 Sodium 140 (136-145) mmol/L Potassium 3.4 L (3.5-5.1) mmol/L Chloride 106 (98-107) mmol/L Carbon Dioxide 22.5 (21.0-32.0) mmol/L BUN 15 (7.0-18.0) mg/dL Creatinine 0.7 (0.6-1.0) mg/dL Est Cr Clr Drug Dosing TNP Estimated GFR (MDRD) > 60.0 ml/min Glucose 135 H (74-106) mg/dL Calcium 7.7 L (8.5-10.1) mg/dL Iron (50-175) ug/dL TIBC (250-450) ug/dL % Saturation (20-55) % Ferritin (8-252) ng/mL Total Bilirubin 0.1 L (0.2-1.0) mg/dL AST 9 L (15-37) IU/L ALT 14 (14-63) IU/L Alkaline Phosphatase 59 (46-116) U/L Troponin I < 0.050 (0.000-0.056) ng/mL Total Protein 5.4 L (6.4-8.2) g/dL Albumin 2.2 L (3.4-5.0) g/dL Globulin 3.2 (2.6-4.0) g/dL Albumin/Globulin Ratio 0.7 L (0.9-1.6) Lipase 167 (73-393) U/L Urine Color Urine Appearance Urine pH (5.0-8.0) Ur Specific [place] (1.001-1.035) Urine Protein (NEGATIVE) mg/dL Urine Glucose (UA) (NEGATIVE) mg/dL Urine Ketones (NEGATIVE) mg/dL Urine Occult Blood (NEGATIVE) Urine Nitrite (NEGATIVE) Urine Bilirubin (NEGATIVE) Urine Urobilinogen (<2.0) EU/dL Ur Leukocyte Esterase (NEGATIVE) Urine RBC (0-2/HPF) Urine WBC (0-5/HPF) Ur Epithelial Cells (NONE-FEW) Urine Bacteria (NEGATIVE) Blood Type Antibody Screen Crossmatch 09/13/18 09/13/18 09/13/18 Range/Units 17:05 17:05 22:45 WBC (4.0-11.0) K/uL RBC (4.30-5.90) M/uL Hgb (12.0-16.0) g/dL Hct (36.0-46.0) % MCV (80.0-98.0) fL MCH (27.0-32.0) pg MCHC (31.0-37.0) g/dL RDW Std Deviation (28.0-62.0) fl RDW Coeff of Juan Antonio (11.0-15.0) % Plt Count (150-400) K/uL MPV (7.40-12.00) fL Add Manual Diff Neutrophils % (Manual) (48.0-80.0) % Band Neutrophils % % Lymphocytes % (Manual) (16.0-40.0) % Monocytes % (Manual) (0.0-15.0) % Basophils % (Manual) (0.0-1.5) % Metamyelocytes % % Nucleated RBC % /100WBC Absolute Seg Neuts (1.4-5.7) Band Neutrophils # Lymphocytes # (Manual) (0.6-2.4) Monocytes # (Manual) (0.0-0.8) Basophils # (Manual) (0.0-0.1) Absolute Metamyelocyte Nucleated RBCs # K/uL INR Sodium (136-145) mmol/L Potassium (3.5-5.1) mmol/L Chloride (98-107) mmol/L Carbon Dioxide (21.0-32.0) mmol/L BUN (7.0-18.0) mg/dL Creatinine (0.6-1.0) mg/dL Est Cr Clr Drug Dosing Estimated GFR (MDRD) ml/min Glucose (74-106) mg/dL Calcium (8.5-10.1) mg/dL Iron 9 L (50-175) ug/dL TIBC 273 (250-450) ug/dL % Saturation 3.30 L (20-55) % Ferritin 4 L (8-252) ng/mL Total Bilirubin (0.2-1.0) mg/dL AST (15-37) IU/L ALT (14-63) IU/L Alkaline Phosphatase (46-116) U/L Troponin I (0.000-0.056) ng/mL Total Protein (6.4-8.2) g/dL Albumin (3.4-5.0) g/dL Globulin (2.6-4.0) g/dL Albumin/Globulin Ratio (0.9-1.6) Lipase (73-393) U/L Urine Color YELLOW Urine Appearance HAZY Urine pH 6.0 (5.0-8.0) Ur Specific [place] <= 1.005 (1.001-1.035) Urine Protein NEGATIVE (NEGATIVE) mg/dL Urine Glucose (UA) NEGATIVE (NEGATIVE) mg/dL Urine Ketones NEGATIVE (NEGATIVE) mg/dL Urine Occult Blood NEGATIVE (NEGATIVE) Urine Nitrite NEGATIVE (NEGATIVE) Urine Bilirubin NEGATIVE (NEGATIVE) Urine Urobilinogen 0.2 (<2.0) EU/dL Ur Leukocyte Esterase SMALL H (NEGATIVE) Urine RBC 0-2 (0-2/HPF) Urine WBC 2-4 (0-5/HPF) Ur Epithelial Cells FEW (NONE-FEW) Urine Bacteria FEW (NEGATIVE) Blood Type A NEGATIVE Antibody Screen NEGATIVE Crossmatch See Detail 09/14/18 Range/Units 05:12 WBC (4.0-11.0) K/uL RBC (4.30-5.90) M/uL Hgb 8.1 L (12.0-16.0) g/dL Hct 23.9 L (36.0-46.0) % MCV (80.0-98.0) fL MCH (27.0-32.0) pg MCHC (31.0-37.0) g/dL RDW Std Deviation (28.0-62.0) fl RDW Coeff of Juan Antonio (11.0-15.0) % Plt Count (150-400) K/uL MPV (7.40-12.00) fL Add Manual Diff Neutrophils % (Manual) (48.0-80.0) % Band Neutrophils % % Lymphocytes % (Manual) (16.0-40.0) % Monocytes % (Manual) (0.0-15.0) % Basophils % (Manual) (0.0-1.5) % Metamyelocytes % % Nucleated RBC % /100WBC Absolute Seg Neuts (1.4-5.7) Band Neutrophils # Lymphocytes # (Manual) (0.6-2.4) Monocytes # (Manual) (0.0-0.8) Basophils # (Manual) (0.0-0.1) Absolute Metamyelocyte Nucleated RBCs # K/uL INR Sodium (136-145) mmol/L Potassium (3.5-5.1) mmol/L Chloride (98-107) mmol/L Carbon Dioxide (21.0-32.0) mmol/L BUN (7.0-18.0) mg/dL Creatinine (0.6-1.0) mg/dL Est Cr Clr Drug Dosing Estimated GFR (MDRD) ml/min Glucose (74-106) mg/dL Calcium (8.5-10.1) mg/dL Iron (50-175) ug/dL TIBC (250-450) ug/dL % Saturation (20-55) % Ferritin (8-252) ng/mL Total Bilirubin (0.2-1.0) mg/dL AST (15-37) IU/L ALT (14-63) IU/L Alkaline Phosphatase (46-116) U/L Troponin I (0.000-0.056) ng/mL Total Protein (6.4-8.2) g/dL Albumin (3.4-5.0) g/dL Globulin (2.6-4.0) g/dL Albumin/Globulin Ratio (0.9-1.6) Lipase (73-393) U/L Urine Color Urine Appearance Urine pH (5.0-8.0) Ur Specific [place] (1.001-1.035) Urine Protein (NEGATIVE) mg/dL Urine Glucose (UA) (NEGATIVE) mg/dL Urine Ketones (NEGATIVE) mg/dL Urine Occult Blood (NEGATIVE) Urine Nitrite (NEGATIVE) Urine Bilirubin (NEGATIVE) Urine Urobilinogen (<2.0) EU/dL Ur Leukocyte Esterase (NEGATIVE) Urine RBC (0-2/HPF) Urine WBC (0-5/HPF) Ur Epithelial Cells (NONE-FEW) Urine Bacteria (NEGATIVE) Blood Type Antibody Screen Crossmatch Med Orders - Current: Current Medications Sodium Chloride (Normal Saline) 1,000 mls @ 50 mls/hr IV ASDIRECTED [facility] Last Admin: 09/13/18 19:00 Dose: 50 mls/hr Oxycodone HCl (Oxycodone) 5 mg PO Q4H PRN PRN Reason: Pain (moderate 4-6) Sodium Chloride (Saline Flush) 10 ml FLUSH ASDIRECTED PRN PRN Reason: Keep Vein Open Sodium Chloride (Saline Flush) 2.5 ml FLUSH ASDIRECTED PRN PRN Reason: Keep Vein Open Temazepam (Restoril) 15 mg PO BEDTIME PRN PRN Reason: Sleep Discontinued Medications Acetaminophen (Tylenol) 650 mg PO NOW ONE Stop: 09/13/18 18:24 Last Admin: 09/13/18 18:31 Dose: 650 mg Diphenhydramine HCl (Benadryl) 50 mg PO ONETIME ONE Stop: 09/13/18 18:24 Last Admin: 09/13/18 18:32 Dose: 50 mg Diphenhydramine HCl (Benadryl) 50 mg PO ONETIME ONE Stop: 09/14/18 00:51 Last Admin: 09/14/18 01:10 Dose: 50 mg Furosemide (Lasix) 20 mg IVPUSH DAILY NOA Last Admin: 09/13/18 23:29 Dose: 20 mg Sodium Chloride (Normal Saline) 1,000 mls @ 999 mls/hr IV STAT ONE Stop: 09/13/18 17:52 Last Admin: 09/13/18 17:12 Dose: 999 mls/hr Sodium Chloride (Normal Saline) Confirm Administered Dose 20 mls @ as directed .ROUTE .STK-MED ONE Stop: 09/13/18 17:08 Last Admin: 09/13/18 17:12 Dose: 20 mls/hr Pantoprazole Sodium (Protonix Iv) 80 mg IVPUSH .BOLUS ONE Stop: 09/13/18 16:53 Last Admin: 09/13/18 17:12 Dose: 80 mg Sterile Water (Sterile Water For Injection) 20 ml INJECT ONETIME STA Stop: 09/13/18 17:01 Last Admin: 09/13/18 17:11 Dose: Not Given - Exam Quality Assessment: Denies: Supplemental Oxygen General: Reports: Alert, Oriented, Cooperative, No Acute Distress HEENT: Reports: Pupils Equal, Pupils Reactive, EOMI, Mucous Membr. Moist/[place] Neck: Reports: Supple, Trachea Midline Lungs: Reports: Clear to Auscultation, Normal Respiratory Effort Cardiovascular: Reports: Regular Rate, Regular Rhythm, No Murmurs GI/Abdominal Exam: Normal Bowel Sounds, Soft, Non-Tender, No Distention (Female) Exam: Deferred Rectal (Female) Exam: Deferred Back Exam: Reports: Normal Inspection, Full Range of Motion Extremities: Normal Inspection, Normal Range of Motion, No Pedal Edema Skin: Reports: Warm, Dry, Intact Wound/Incisions: Reports: Healing Well Neurological: Reports: No New Focal Deficit Psy/Mental Status: Reports: Alert, Normal Affect, Normal Mood *Q Meaningful Use (DIS) - VTE *Q VTE Mechanical Contraindications *Q: At Risk for Falls VTE Pharmacological Contraindications *Q: Patient has Severe Anemia
[2018-09-14] MEDS ORDERED: Acetaminophen 325 MG Tab PO ONE (09:13)
[2018-09-14] MEDS ORDERED: Iron Sucrose Complex 100 MG in Sodium Chloride 0.9% 100 ML IV ONE (09:22)
[2018-09-14 12:57] VITALS: BP 138/78
== END 2018-09-14 12:37 | disposition home or self-care (01) | DRG 663 ==
LOC: MW.ED 16:38 → MW.MS 17:54
PROVIDERS: ADMIT Internal Medicine; ATTEND Internal Medicine
PROC: 30233N1 Transfusion of Nonautologous Red Blood Cells into Peripheral Vein, Percutaneous Approach (ICD-10-PCS; principal; 2018-09-13)
DX: D50.9 Iron deficiency anemia, unspecified (principal); N30.00 Acute cystitis without hematuria; D47.3 Essential (hemorrhagic) thrombocythemia; M19.90 Unspecified osteoarthritis, unspecified site; G43.909 Migraine, unspecified, not intractable, without status migrainosus; Z96.641 Presence of right artificial hip joint; Z87.891 Personal history of nicotine dependence; Z87.11 Personal history of peptic ulcer disease
CPT/HCPCS: 36415; 71045; 71045-26; 80053; 81001; 82728; 83550; 83690; 84484; 85014; 85018; 85025; 85610; 87086; 93005; 96361; 96374; 99285-25; A9270-GY; C9113; J1756; J7030; J7040; P9016

== ENCOUNTER 2018-09-19 09:57 | Emergency (ER) | payer BC, OTHER ==
[2018-09-19] MEDS ORDERED: Sodium Chloride 0.9% 1,000 ML IV ONE ×2 (10:08→13:13)
[2018-09-19] MEDS ORDERED: Sodium Chloride 0.9% 10 ML Syringe FLUSH PRN (10:08)
[2018-09-19] MEDS ORDERED: Sodium Chloride 0.9% 2.5 ML Syringe FLUSH PRN (10:08)
--- NOTE | 2018-09-19 10:23 | EDM.PDOC ---
ED HPI GENERAL MEDICAL PROBLEM - General Chief Complaint: General Stated Complaint: WEAKNESS Time Seen by Provider: 09/19/18 10:06 Source of Information: Reports: Patient History Limitations: Reports: No Limitations - History of Present Illness INITIAL COMMENTS - FREE TEXT/NARRATIVE: HISTORY AND PHYSICAL: History of present illness: Patient is a 58-year-old female who presents to the emergency room with concerns of weakness. She recently was admitted to our hospital on 09/13/18 for syncope and a hemoglobin was 2.6 g/dL. Patient has a long-standing history of iron deficiency anemia. She states she is supposed to take oral iron supplements but this medication bothers her stomach and has not taken these for "sometime". On her admission on 09/13/18 she received 5 units of blood and was discharged to home. She states she has met with Dr. Ch, oncologist, for IV iron infusion earlier this week. Yesterday she did have a CT of the chest abdomen and pelvis but is unaware of these results. She also has a follow-up appointment with the general surgeon, Dr. Shoemaker for a repeat EGD and colonoscopy on 09/22/2018. Patient states that she continues to have generalized weakness and fatigue. She denies any fever, chills, chest pain, shortness of breath or cough. She denies any abdominal pain although states her stomach feels "bubbly". Denies any nausea , vomiting, diarrhea, constipation or dysuria. She states it is common for her to have decreased oral intake and decreased appetite. She states she does watch her stools closely and has noticed they are dark in color but has not had any blood or black tarry stools. Patient does have a past medical history of diverticulosis, H. pylori, peptic ulcer disease, and iron deficiency anemia. Her primary care provider is Dr. García Review of systems: As per history of present illness and below otherwise all systems reviewed and negative. Past medical history: As per history of present illness and as reviewed below otherwise noncontributory. Surgical history: As per history of present illness and as reviewed below otherwise noncontributory. Social history: See social history for further information Family history: As per history of present illness and as reviewed below otherwise noncontributory. Physical exam: General: Well-developed, thin 58-year-old female. Alert and oriented. Nontoxic appearing and in no acute distress. HEENT: Atraumatic, normocephalic, pupils equal and reactive bilaterally, negative for conjunctival pallor or scleral icterus, mucous membranes moist, TMs normal bilaterally, throat clear, neck supple, nontender, trachea midline. No drooling or trismus noted. No meningeal signs. No hot potato voice noted. Lungs: Clear to auscultation, breath sounds equal bilaterally, chest nontender. Heart: S1S2, regular rate and rhythm without overt murmur Abdomen: Soft, nondistended, nontender. Negative for masses or hepatosplenomegaly. Negative for costovertebral tenderness. Pelvis: Stable nontender. Genitourinary: Deferred. Rectal: This was done with consent and a aluminum boat assembly supervisor at the bedside. No external hemorrhoids or internal hemorrhoids are noted. Patient is Hemoccult positive. Good rectal tone. Skin: Patient appears pale. Intact, warm, dry. No lesions or rashes noted. Extremities: Atraumatic, moves all extremities per self without difficulty or deficits. negative for cords or calf pain. Neurovascular unremarkable. Neuro: Awake, alert, oriented. Cranial nerves II through XII unremarkable. Cerebellum unremarkable. Motor and sensory unremarkable throughout. Exam nonfocal. Notes: CT of the chest, abdomen and pelvis were done on 09/18/18. These have been sent over to [facility]. Patient states she currently is on Cipro for previous UTI. CT of the abdomen and pelvis shows gastric wall thickening along the antrum with possible outpouching of contrast seen along the gastric antrum. There is surrounding mild adenopathy. Findings suspicious for antral ulcer, possible ulcerated neoplasm. No free air, extravasation of contrast. GI consultation recommended. Tiny ill-defined centrilobular nodules in the lower lobes may represent infectious or inflammatory etiology Dr. Mahmood and Dr. Barrios were consulted on this patient. Both physicians will come down and evaluate and discuss patient disposition. Dr Barrios has spent a long period of time talking with the patient and has been at bedside about possible treatment options and the likelihood of needing transfer for optimal treatment. Dr Shoemaker (patient's personal surgeon) was informed of the patient being here. Patient will be transferred to higher level of care for GI specialist and possible surgeon. 1310: Dr Cabral at [facility] was consulted on this patient. He is agreeable to having this patient be further evaluated and managed at their facility. Patient and has been at bedside are aware and agreeable to this. Vital signs remain stable. Encouraged her to be NPO until cleared by the provider at [facility]. She voices understanding and agreeable to plan of care. Denies any further questions or concerns at this time. Diagnostics: CBC, CMP, UA, type and cross, EKG, one view chest, hemoccult positive Therapeutics: IV fluid Impression: Leukocytosis Suspected GI bleed Chronic iron deficiency anemia Weakness Plan: Transferred to [facility] in [place] via ground EMS Definitive disposition and diagnosis as appropriate pending reevaluation and review of above. - Related Data Allergies Allergy/AdvReac Type Severity Reaction Status Date / Time No Known Allergies Allergy Verified 09/19/18 10:03 Home Meds: Home Meds Acetaminophen with Codeine [Tylenol with Codeine #3 Tablet] 1 tab ASDIRECTED 09/29 [History] Ciprofloxacin [Ciprofloxacin HCl] 500 mg PO BID #10 tab 09/14/18 [Rx] Past Medical History HEENT History: Reports: Allergic Rhinitis Other HEENT History: has upper partial removable denture Cardiovascular History: Reports: None Respiratory History: Reports: None Gastrointestinal History: Reports: Diverticulosis, Helicobacter Pylori, PUD Other Gastrointestinal History: hx gastric ulcer Genitourinary History: Reports: None FEATHER SEPARATOR History: Reports: None Musculoskeletal History: Reports: Arthritis Neurological History: Reports: Migraines Psychiatric History: Reports: None Endocrine/Metabolic History: Reports: None Hematologic History: Reports: Anemia, Iron Deficiency Immunologic History: Reports: None Oncologic (Cancer) History: Reports: None Dermatologic History: Reports: None - Infectious Disease History Infectious Disease History: Reports: Chicken Pox - Past Surgical History Head Surgeries/Procedures: Reports: None HEENT Surgical History: Reports: Tonsillectomy Cardiovascular Surgical History: Reports: None Respiratory Surgical History: Reports: None GI Surgical History: Reports: Colonoscopy, EGD Female Surgical History: Reports: Tubal Ligation Endocrine Surgical History: Reports: None Neurological Surgical History: Reports: None Musculoskeletal Surgical History: Reports: Hip Replacement Other Musculoskeletal Surgeries/Procedures:: right ROSA Oncologic Surgical History: Reports: None Dermatological Surgical History: Reports: None Social & Family History - Family History Family Medical History: Noncontributory OBGYN: Reports: Musculoskeletal: Reports: Arthritis Oncologic: Reports: Breast, Colon - Tobacco Use Smoking Status *Q: Never Smoker - Caffeine Use Caffeine Use: Reports: None - Recreational Drug Use Recreational Drug Use: No - Living Situation & Occupation Living situation: Reports: , with Spouse Occupation: Employed ED ROS GENERAL - Review of Systems Review Of Systems: ROS reveals no pertinent complaints other than HPI. ED EXAM, GENERAL - Physical Exam Exam: See Below (See dictation) Course - Vital Signs Last Recorded V/S: Last Vital Signs Temp 98.4 F 09/19/18 10:29 Pulse 95 09/19/18 12:51 Resp 26 H 09/19/18 12:51 BP 117/62 09/19/18 12:51 Pulse Ox 95 09/19/18 12:51 - Orders/Labs/Meds Orders: Active Orders 24 hr Category Date Time Status Cardiac Monitoring [RC] . DIRECTED Care 09/19/18 10:08 Active EKG Documentation Completion [RC] STAT Care 09/19/18 10:08 Active Hemoccult [Fecal Occult Blood Collection] [RC] Care 09/19/18 10:29 Active ASDIRECTED UA RFX JIMMY AND CULT IF INDIC [URIN] Stat Lab 09/19/18 13:03 Received Sodium Chloride 0.9% [Normal Saline] 1,000 ml Med 09/19/18 13:13 Ordered IV STAT Sodium Chloride 0.9% [Saline Flush] Med 09/19/18 10:08 Active 10 ml FLUSH ASDIRECTED PRN Sodium Chloride 0.9% [Saline Flush] Med 09/19/18 10:08 Active 2.5 ml FLUSH ASDIRECTED PRN Saline Lock Insert [OM.PC] Stat Oth 09/19/18 10:08 Ordered Medication Orders Sodium Chloride (Normal Saline) 1,000 mls @ 125 mls/hr IV STAT ONE Stop: 09/19/18 21:12 Sodium Chloride (Saline Flush) 10 ml FLUSH ASDIRECTED PRN PRN Reason: Keep Vein Open Sodium Chloride (Saline Flush) 2.5 ml FLUSH ASDIRECTED PRN PRN Reason: Keep Vein Open Labs: Laboratory Tests 09/19/18 09/19/18 09/19/18 Range/Units 10:30 10:30 10:30 WBC 16.89 H (4.0-11.0) K/uL RBC 2.68 L (4.30-5.90) M/uL Hgb 7.3 L (12.0-16.0) g/dL Hct 23.5 L (36.0-46.0) % MCV 87.7 (80.0-98.0) fL MCH 27.2 (27.0-32.0) pg MCHC 31.1 (31.0-37.0) g/dL RDW Std Deviation 60.1 (28.0-62.0) fl RDW Coeff of Juan Antonio 22 H (11.0-15.0) % Plt Count 489 H (150-400) K/uL MPV 8.40 (7.40-12.00) fL Add Manual Diff YES Neutrophils % (Manual) 81 H (48.0-80.0) % Band Neutrophils % 2 % Lymphocytes % (Manual) 13 L (16.0-40.0) % Monocytes % (Manual) 4 (0.0-15.0) % Nucleated RBC % 2.0 /100WBC Absolute Seg Neuts 13.7 H (1.4-5.7) Band Neutrophils # 0.3 Lymphocytes # (Manual) 2.2 (0.6-2.4) Monocytes # (Manual) 0.7 (0.0-0.8) Nucleated RBCs # 0 K/uL Sodium 140 (136-145) mmol/L Potassium 4.3 (3.5-5.1) mmol/L Chloride 108 H (98-107) mmol/L Carbon Dioxide 25.1 (21.0-32.0) mmol/L BUN 27 H (7.0-18.0) mg/dL Creatinine 0.6 (0.6-1.0) mg/dL Est Cr Clr Drug Dosing TNP Estimated GFR (MDRD) > 60.0 ml/min Glucose 124 H (74-106) mg/dL Calcium 8.2 L (8.5-10.1) mg/dL Total Bilirubin 0.2 (0.2-1.0) mg/dL AST 5 L (15-37) IU/L ALT 8 L (14-63) IU/L Alkaline Phosphatase 66 (46-116) U/L Total Protein 5.7 L (6.4-8.2) g/dL Albumin 2.3 L (3.4-5.0) g/dL Globulin 3.4 (2.6-4.0) g/dL Albumin/Globulin Ratio 0.7 L (0.9-1.6) Urine Color Urine Appearance Urine pH (5.0-8.0) Ur Specific Carroll (1.001-1.035) Urine Protein (NEGATIVE) mg/dL Urine Glucose (UA) (NEGATIVE) mg/dL Urine Ketones (NEGATIVE) mg/dL Urine Occult Blood (NEGATIVE) Urine Nitrite (NEGATIVE) Urine Bilirubin (NEGATIVE) Urine Urobilinogen (<2.0) EU/dL Ur Leukocyte Esterase (NEGATIVE) Blood Type A NEGATIVE Antibody Screen NEGATIVE 09/19/18 Range/Units 13:03 WBC (4.0-11.0) K/uL RBC (4.30-5.90) M/uL Hgb (12.0-16.0) g/dL Hct (36.0-46.0) % MCV (80.0-98.0) fL MCH (27.0-32.0) pg MCHC (31.0-37.0) g/dL RDW Std Deviation (28.0-62.0) fl RDW Coeff of Juan Antonio (11.0-15.0) % Plt Count (150-400) K/uL MPV (7.40-12.00) fL Add Manual Diff Neutrophils % (Manual) (48.0-80.0) % Band Neutrophils % % Lymphocytes % (Manual) (16.0-40.0) % Monocytes % (Manual) (0.0-15.0) % Nucleated RBC % /100WBC Absolute Seg Neuts (1.4-5.7) Band Neutrophils # Lymphocytes # (Manual) (0.6-2.4) Monocytes # (Manual) (0.0-0.8) Nucleated RBCs # K/uL Sodium (136-145) mmol/L Potassium (3.5-5.1) mmol/L Chloride (98-107) mmol/L Carbon Dioxide (21.0-32.0) mmol/L BUN (7.0-18.0) mg/dL Creatinine (0.6-1.0) mg/dL Est Cr Clr Drug Dosing Estimated GFR (MDRD) ml/min Glucose (74-106) mg/dL Calcium (8.5-10.1) mg/dL Total Bilirubin (0.2-1.0) mg/dL AST (15-37) IU/L ALT (14-63) IU/L Alkaline Phosphatase (46-116) U/L Total Protein (6.4-8.2) g/dL Albumin (3.4-5.0) g/dL Globulin (2.6-4.0) g/dL Albumin/Globulin Ratio (0.9-1.6) Urine Color YELLOW Urine Appearance CLEAR Urine pH 7.0 (5.0-8.0) Ur Specific Carroll 1.020 (1.001-1.035) Urine Protein NEGATIVE (NEGATIVE) mg/dL Urine Glucose (UA) NEGATIVE (NEGATIVE) mg/dL Urine Ketones NEGATIVE (NEGATIVE) mg/dL Urine Occult Blood NEGATIVE (NEGATIVE) Urine Nitrite NEGATIVE (NEGATIVE) Urine Bilirubin NEGATIVE (NEGATIVE) Urine Urobilinogen 0.2 (<2.0) EU/dL Ur Leukocyte Esterase SMALL H (NEGATIVE) Blood Type Antibody Screen Meds: Medications Generic Name Dose Route Start Last Admin Trade Name Freq PRN Reason Stop Dose Admin Sodium Chloride 1,000 mls @ 125 mls/hr 09/19/18 13:13 Normal Saline IV 09/19/18 21:12 STAT ONE Sodium Chloride 10 ml 09/19/18 10:08 Saline Flush FLUSH ASDIRECTED PRN Keep Vein Open Sodium Chloride 2.5 ml 09/19/18 10:08 Saline Flush FLUSH ASDIRECTED PRN Keep Vein Open Discontinued Medications Generic Name Dose Route Start Last Admin Trade Name Freq PRN Reason Stop Dose Admin Sodium Chloride 1,000 mls @ 999 mls/hr 09/19/18 10:08 09/19/18 10:36 Normal Saline IV 09/19/18 11:08 999 mls/hr STAT ONE Administration Departure - Departure Time of Disposition: 13:25 Disposition: DC/Tfer to Acute Hospital 02 Clinical Impression: Chronic iron deficiency anemia GI bleed Qualifiers: GI bleed type/associated pathology: unspecified gastrointestinal hemorrhage type Qualified Code(s): K92.2 - Gastrointestinal hemorrhage, unspecified Leukocytosis Qualifiers: Leukocytosis type: unspecified Qualified Code(s): D72.829 - Elevated white blood cell count, unspecified - Discharge Information Referrals: Neville García MD [Primary Care Provider] - Forms: ED Department Discharge - My Orders Last 24 Hours: My Active Orders 09/19/18 10:08 Cardiac Monitoring [RC] . DIRECTED EKG Documentation Completion [RC] STAT Sodium Chloride 0.9% [Saline Flush] 10 ml FLUSH ASDIRECTED PRN Sodium Chloride 0.9% [Saline Flush] 2.5 ml FLUSH ASDIRECTED PRN Saline Lock Insert [OM.PC] Stat 09/19/18 10:29 Hemoccult [Fecal Occult Blood Collection] [RC] ASDIRECTED 09/19/18 13:03 UA RFX JIMMY AND CULT IF INDIC [URIN] Stat 09/19/18 13:13 Sodium Chloride 0.9% [Normal Saline] 1,000 ml IV STAT - Assessment/Plan Last 24 Hours: My Active Orders 09/19/18 10:08 Cardiac Monitoring [RC] . DIRECTED EKG Documentation Completion [RC] STAT Sodium Chloride 0.9% [Saline Flush] 10 ml FLUSH ASDIRECTED PRN Sodium Chloride 0.9% [Saline Flush] 2.5 ml FLUSH ASDIRECTED PRN Saline Lock Insert [OM.PC] Stat 09/19/18 10:29 Hemoccult [Fecal Occult Blood Collection] [RC] ASDIRECTED 09/19/18 13:03 UA RFX JIMMY AND CULT IF INDIC [URIN] Stat 09/19/18 13:13 Sodium Chloride 0.9% [Normal Saline] 1,000 ml IV STAT
[2018-09-19 11:09] LABS: CHLORIDE,CL 108 mmol/L (98-107); SODIUM,NA 140 mmol/L (136-145)
[2018-09-19 13:29] VITALS: BP 129/49
--- NOTE | 2018-09-22 09:35 | HP ---
DATE OF : 1960 PRIMARY CARE PHYSICIAN: Neville García M.D. REASON FOR CONSULTATION: Consult was called for possible stomach malignancy and anemic. HISTORY OF PRESENT ILLNESS: The patient is a 58-year-old lady who has had a couple times of anemic event since May and was last hospitalized on September 14 for syncope episode and was in the emergency room, noted to have hemoglobin down to 2.6, got some transfusion, and went home. The patient came in today because the patient is feeling not well. Of note, the patient just got 2 units of transfusion 24 hours ago by the Hematology/Oncology doctor. PAST MEDICAL HISTORY: Significant for no diabetes, NE, CVA, or hypertension. The patient has H. pylori infection that was treated 2 years ago. PAST SURGICAL HISTORY: EGD, colonoscopy 2 years ago, and laparoscopic cholecystectomy 2 years ago. ALLERGIES: Please refer to nursing for details. MEDICATIONS: Please refer to nursing for details. PHYSICAL EXAMINATION: GENERAL: Very pale appearing lady in no acute distress. HEENT: Normocephalic and atraumatic. Sclerae anicteric. LUNGS: Clear to auscultation. HEART: Regular rate and rhythm. ABDOMEN: Soft, nondistended. No pulsating, tender midline abdominal structure. Epigastrium is nontender. Well-healed laparoscopic surgical scar. LABORATORY DATA: Upon consultation, hemoglobin is 7.6. CAT scan shows antrum wall thickening, malignancy versus ulcer, and also perigastric adenopathy of 1.5 cm. IMPRESSION: With the patient's nontender abdomen, denied black tarry stool, and denied bright red blood per rectum and with CAT scan finding of a stomach thickening, and with perigastric node, there is a high risk for stomach malignancy. In this situation, the patient would be better served by being seen at a tertiary care center or academic center for her need, and rather than endoscopy here, sometimes may have to repeat the same study or repeat imaging study in a tertiary care center. The treatment plan was discussed with the patient. The patient gladly agreed to transfer to a tertiary care center. Thank you for the kind referral. LILY / JADEN /[id number]
== END 2018-09-19 14:11 ==
LOC: MW.ED 09:57
DX: K92.2 Gastrointestinal hemorrhage, unspecified (principal); D50.8 Other iron deficiency anemias; R53.1 Weakness; D72.829 Elevated white blood cell count, unspecified
CPT/HCPCS: 36415; 80053; 81001; 85025; 86850; 86900; 86901; 87086; 93005; 96360; 96361; 99285; J7040; 99284

== ENCOUNTER 2018-09-23 14:52 | Emergency (ER) | payer BC, OTHER ==
[2018-09-23] MEDS ORDERED: Sodium Chloride 0.9% 10 ML Syringe FLUSH PRN (14:54)
[2018-09-23] MEDS ORDERED: Sodium Chloride 0.9% 2.5 ML Syringe FLUSH PRN (14:54)
[2018-09-23] MEDS ORDERED: Sodium Chloride 0.9% 1,000 ML IV ONE (15:06)
[2018-09-23] MEDS ORDERED: Pantoprazole 40 MG Vial IVPUSH ONE (15:06)
--- NOTE | 2018-09-23 15:07 | EDM.PDOC ---
ED HPI GENERAL MEDICAL PROBLEM - General Chief Complaint: Gastrointestinal Problem Stated Complaint: SENT FROM CLINIC Time Seen by Provider: 09/23/18 14:53 Source of Information: Reports: Patient History Limitations: Reports: No Limitations - History of Present Illness INITIAL COMMENTS - FREE TEXT/NARRATIVE: History of present illness: []Patient was sent from Dr. García's office with a GI bleed. Patient had a repeat H&H today and was found to be 02/02. Dr. García called Dr. Santos at [facility] and requested that patient get 2 units of blood here in the ED and then directly transferred to [place]. Review of systems: As per history of present illness and below otherwise all systems reviewed and negative. Past medical history: As per history of present illness and as reviewed below otherwise noncontributory. Surgical history: As per history of present illness and as reviewed below otherwise noncontributory. Social history: No reported history of drug or alcohol abuse. Family history: As per history of present illness and as reviewed below otherwise noncontributory. Physical exam: General: Well developed, well nourished in NAD HEENT: Atraumatic, normocephalic, pupils reactive, negative for conjunctival pallor or scleral icterus, mucous membranes moist, throat clear, neck supple, nontender, trachea midline. Lungs: Clear to auscultation, breath sounds equal bilaterally, chest nontender. Heart: S1S2, regular, negative for clicks, rubs, or JVD. Abdomen: NABS, Soft, nondistended, nontender. Negative for masses or hepatosplenomegaly. Negative for costovertebral tenderness. Pelvis: Stable nontender. Genitourinary: Deferred. Rectal: Deferred. Extremities: Atraumatic, negative for cords or calf pain. Neurovascular unremarkable. Neuro: Awake, alert, oriented. Cranial nerves II through XII unremarkable. Cerebellum unremarkable. Motor and sensory unremarkable throughout. Exam nonfocal. Skin:warm and dry Diagnostics: Blood pressure initially 93/59 with a heart rate of 120, Therapeutics: IV fluid, 2 units packed red blood cells, Protonix less ED Course: Remained awake and alert with improving vital signs with fluids Impression: GI bleed from an antrum stomach ulcer Prescriptions: Plan: Transfer to [facility] by air Definitive disposition and diagnosis as appropriate pending reevaluation and review of above. - Related Data Allergies Allergy/AdvReac Type Severity Reaction Status Date / Time No Known Allergies Allergy Verified 09/23/18 15:04 Home Meds: Home Meds Pantoprazole [ProTONIX] 40 mg PO DAILY 09/23/18 [History] Sucralfate [Carafate] 1 gm PO Q6H 09/23/18 [History] Past Medical History HEENT History: Reports: Allergic Rhinitis Other HEENT History: has upper partial removable denture Cardiovascular History: Reports: None Respiratory History: Reports: None Gastrointestinal History: Reports: Diverticulosis, Helicobacter Pylori, PUD Other Gastrointestinal History: hx gastric ulcer Genitourinary History: Reports: None 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 Musculoskeletal History: Reports: Arthritis Neurological History: Reports: Migraines Psychiatric History: Reports: None Endocrine/Metabolic History: Reports: None Hematologic History: Reports: Anemia, Iron Deficiency Immunologic History: Reports: None Oncologic (Cancer) History: Reports: None Dermatologic History: Reports: None - Infectious Disease History Infectious Disease History: Reports: Chicken Pox - Past Surgical History Head Surgeries/Procedures: Reports: None HEENT Surgical History: Reports: Tonsillectomy Cardiovascular Surgical History: Reports: None Respiratory Surgical History: Reports: None GI Surgical History: Reports: Colonoscopy, EGD Female Surgical History: Reports: Tubal Ligation Endocrine Surgical History: Reports: None Neurological Surgical History: Reports: None Musculoskeletal Surgical History: Reports: Hip Replacement Other Musculoskeletal Surgeries/Procedures:: right ROSA Oncologic Surgical History: Reports: None Dermatological Surgical History: Reports: None Social & Family History - Family History Family Medical History: Noncontributory OBGYN: Reports: Musculoskeletal: Reports: Arthritis Oncologic: Reports: Breast, Colon - Caffeine Use Caffeine Use: Reports: None - Living Situation & Occupation Living situation: Reports: , with Spouse Occupation: Employed ED ROS GENERAL - Review of Systems Review Of Systems: ROS reveals no pertinent complaints other than HPI. ED EXAM, GI/ABD - Physical Exam Exam: See Below (History of present illness) Course - Vital Signs Last Recorded V/S: Last Vital Signs Temp 97.4 F 09/23/18 15:25 Pulse 108 H 09/23/18 15:25 Resp 20 09/23/18 15:25 BP 100/68 09/23/18 15:25 Pulse Ox 100 09/23/18 15:25 - Orders/Labs/Meds Orders: Active Orders 24 hr Category Date Time Status Verify Patient Consent Obtain [RC] ASDIRECTED Care 09/23/18 15:00 Active RED BLOOD CELLS LP [BBK] Stat Lab 09/23/18 14:57 Ordered TYPE AND SCREEN [BBK] Stat Lab 09/23/18 14:57 Ordered Sodium Chloride 0.9% [Normal Saline] 1,000 ml Med 09/23/18 15:06 Ordered IV .Bolus Sodium Chloride 0.9% [Saline Flush] Med 09/23/18 14:54 Active 10 ml FLUSH ASDIRECTED PRN Sodium Chloride 0.9% [Saline Flush] Med 09/23/18 14:54 Active 2.5 ml FLUSH ASDIRECTED PRN Saline Lock Insert [OM.PC] Stat Oth 09/23/18 14:54 Ordered Transfuse Red Blood Cells [COMM] Stat Oth 09/23/18 14:54 Ordered Medication Orders Sodium Chloride (Normal Saline) 1,000 mls @ 999 mls/hr IV .Bolus ONE Stop: 09/23/18 16:06 Last Admin: 09/23/18 15:13 Dose: 999 mls/hr Sodium Chloride (Saline Flush) 10 ml FLUSH ASDIRECTED PRN PRN Reason: Keep Vein Open Last Admin: 09/23/18 15:22 Dose: 10 ml Sodium Chloride (Saline Flush) 2.5 ml FLUSH ASDIRECTED PRN PRN Reason: Keep Vein Open Last Admin: 09/23/18 15:22 Dose: 2.5 ml Meds: Medications Generic Name Dose Route Start Last Admin Trade Name Freq PRN Reason Stop Dose Admin Sodium Chloride 1,000 mls @ 999 mls/hr 09/23/18 15:06 09/23/18 15:13 Normal Saline IV 09/23/18 16:06 999 mls/hr .Bolus ONE Administration Sodium Chloride 10 ml 09/23/18 14:54 09/23/18 15:22 Saline Flush FLUSH 10 ml ASDIRECTED PRN Administration Keep Vein Open Sodium Chloride 2.5 ml 09/23/18 14:54 09/23/18 15:22 Saline Flush FLUSH 2.5 ml ASDIRECTED PRN Administration Keep Vein Open Discontinued Medications Generic Name Dose Route Start Last Admin Trade Name Freq PRN Reason Stop Dose Admin Sodium Chloride Confirm 09/23/18 15:14 09/23/18 15:19 Normal Saline Administered 09/23/18 15:15 20 mls/hr Dose Administration 20 mls @ as directed .ROUTE .STK-MED ONE Pantoprazole Sodium 80 mg 09/23/18 15:06 09/23/18 15:19 Protonix Iv IVPUSH 09/23/18 15:07 80 mg .BOLUS ONE Administration Departure - Departure Time of Disposition: 15:38 Disposition: DC/Tfer to Acute Hospital 02 Condition: Serious Clinical Impression: GI bleed Qualifiers: GI bleed type/associated pathology: unspecified gastrointestinal hemorrhage type Qualified Code(s): K92.2 - Gastrointestinal hemorrhage, unspecified Antral ulcer Qualifiers: Gastric ulcer chronicity: acute Qualified Code(s): K25.3 - Acute gastric ulcer without hemorrhage or perforation - Discharge Information Referrals: Neville García MD [Primary Care Provider] - Forms: ED Department Discharge - My Orders Last 24 Hours: My Active Orders 09/23/18 14:54 Sodium Chloride 0.9% [Saline Flush] 10 ml FLUSH ASDIRECTED PRN Sodium Chloride 0.9% [Saline Flush] 2.5 ml FLUSH ASDIRECTED PRN Saline Lock Insert [OM.PC] Stat Transfuse Red Blood Cells [COMM] Stat 09/23/18 14:57 RED BLOOD CELLS LP [BBK] Stat TYPE AND SCREEN [BBK] Stat 09/23/18 15:00 Verify Patient Consent Obtain [RC] ASDIRECTED 09/23/18 15:06 Sodium Chloride 0.9% [Normal Saline] 1,000 ml IV .Bolus - Assessment/Plan Last 24 Hours: My Active Orders 09/23/18 14:54 Sodium Chloride 0.9% [Saline Flush] 10 ml FLUSH ASDIRECTED PRN Sodium Chloride 0.9% [Saline Flush] 2.5 ml FLUSH ASDIRECTED PRN Saline Lock Insert [OM.PC] Stat Transfuse Red Blood Cells [COMM] Stat 09/23/18 14:57 RED BLOOD CELLS LP [BBK] Stat TYPE AND SCREEN [BBK] Stat 09/23/18 15:00 Verify Patient Consent Obtain [RC] ASDIRECTED 09/23/18 15:06 Sodium Chloride 0.9% [Normal Saline] 1,000 ml IV .Bolus
[2018-09-23] MEDS ORDERED: Sodium Chloride 0.9% 20 ML ONE (15:14)
[2018-09-23 17:43] VITALS: BP 119/54
== END 2018-09-23 16:10 ==
LOC: MW.ED 14:52
DX: K25.0 Acute gastric ulcer with hemorrhage (principal)
CPT/HCPCS: 36415; 36430; 86850; 86900; 86901; 86920; 86921; 86922; 96361; 96374; 99285; C9113; J7040; P9016

== ENCOUNTER 2018-11-15 07:57 | Observation (INO) | payer BC, OTHER ==
--- NOTE | 2018-11-15 08:09 | EDM.PDOC ---
ED HPI GENERAL MEDICAL PROBLEM - General Chief Complaint: Abdominal Pain Stated Complaint: stomach pain Time Seen by Provider: 11/15/18 08:03 - History of Present Illness INITIAL COMMENTS - FREE TEXT/NARRATIVE: HISTORY AND PHYSICAL: History of present illness: The patient is a 58-year-old female who presents today with complaints of suprapubic/bilateral lower abdominal pain that started about 2-3 days ago. The patient says she had symptoms of a UTI, she has had UTIs in the past, which included frequency urgency or pressure with urination and she went to [facility] on Friday and was diagnosed with the UTI. She was started on Cipro and says that she does not feel like the symptoms are improving. She says that the frequency urgency and dysuria has improved but she still has the discomfort which is deep and achy and now it is radiating to her left flank. She has not had fevers or chills nausea vomiting or diarrhea. The patient says that she has had intermittent vomiting over the last few months but that is unrelated to these symptoms. The patient has never had a kidney stone before or kidney trouble nor has she had any colonic problems. She did have some diarrhea last week but that has since improved and she does not have black or bloody stools. The patient does have a significant recent history of an ED visit on September 23 after being seen by Dr. García in the clinic and noted to have significant anemia and the patient was sent to our ED and received 2 units of packed red blood cells and was emergently transferred to [facility] per the direction of the GI specialist there Dr. Santos. The patient says that she did have endoscopy and did have a J tube placed by Dr. Braswell which was in for about a month and then subsequently removed. She says that she is going to be followed up by Dr. Limon. She says she is on Protonix and she is doing very well from that perspective and is having no upper abdominal pain and when she has these intermittent episodes of vomiting there is no black coffee grounds or blood. Per the computer the patient has had subsequent follow-up appointments in October with Dr. García in the clinic and her last hemoglobin was 15.5 on November 04. She was also noted to have a low iron level system with her iron deficiency anemia history; she is not currently on any iron supplementation. Because of her significant history with GI bleeding she is only taking Tylenol for the pain. Lightheaded or dizzy nor should passing out and has no chest pain shortness of breath or other systemic issues. Review of systems: As per history of present illness and below otherwise all systems reviewed and negative. Past medical history: As per history of present illness and as reviewed below otherwise noncontributory. Surgical history: As per history of present illness and as reviewed below otherwise noncontributory. Social history: No reported history of drug or alcohol abuse. Family history: As per history of present illness and as reviewed below otherwise noncontributory. Physical exam: General: Well-developed well-nourished thin female who is nontoxic and vital signs are noted by me HEENT: Atraumatic, normocephalic, negative for conjunctival pallor or scleral icterus, mucous membranes moist, throat clear, neck supple, nontender, trachea midline. Lungs: Clear to auscultation, breath sounds equal bilaterally, chest nontender. Heart: S1S2, regular rate and rhythm no overt murmurs Abdomen: Soft, nondistended, nontender. Bowel sounds are slightly hypoactive and there is no reproducible tenderness on palpation on my exam. Negative for masses or hepatosplenomegaly. Negative for costovertebral tenderness. Pelvis: Stable nontender. Genitourinary: Deferred. Rectal: Deferred. Extremities: Atraumatic, negative for cords or calf pain. Neurovascular unremarkable. Neuro: Awake, alert, oriented. Cranial nerves II through XII unremarkable. Cerebellum unremarkable. Motor and sensory unremarkable throughout. Exam nonfocal. Diagnostics: CBC CMP amylase lipase UA with reflex CT scan of the abdomen and pelvis Therapeutics: IV fluid, Bentyl IV maintenance fluid Reglan Benadryl Levaquin K+ nicole 1057: Discussed with the surgeon at [facility] in [place] regarding the CT scan findings, Dr Horne. She feels that the patient can be admitted here for IV fluids bowel rest and NG decompression and Reglan and further x-rays with contrast to further evaluate things as she is admitted. She does not feel that the patient needs emergent transfer and is aware of her labs. 1105: Case was discussed with our surgeon Dr. Barrios; he is aware of my conversations with the surgeon in [place] and the care plan suggested and he is agreeable to admit her observation. I will inform him as to me giving her a dose of Levaquin as she does have an ongoing UTI and she did not take any antibiotics today and the Levaquin will cover her for 24 hours. She has been on Cipro. In my conversation with the patient and at bedside the patient is scheduled for repeat EGD on the of this month with dilatation of the gastric outlet and they are frustrated that this has not happened sooner. She has had this intermittent vomiting and she is currently not having any vomiting but due to the distention they are aware that she needs the NG tube I've tried to explain why that might have been delayed and they feel comfortable with the care plan that we are going to initiate today and they are aware that she may need to be transferred if her symptoms do not improve. Impression: Left-sided abdominal pain, gastric distention, rule out early gastric outlet obstruction Definitive disposition and diagnosis as appropriate pending reevaluation and review of above. lower abd and flank Pain Score (Numeric/FACES): 4 - Related Data Allergies Allergy/AdvReac Type Severity Reaction Status Date / Time No Known Allergies Allergy Verified 11/15/18 08:06 Home Meds: Home Meds Pantoprazole [ProTONIX] 40 mg PO BID 09/23/18 [History] Ciprofloxacin HCl [Cipro] 500 mg PO BID 11/15/18 [History] Past Medical History HEENT History: Reports: Allergic Rhinitis Other HEENT History: has upper partial removable denture Cardiovascular History: Reports: None Respiratory History: Reports: None Gastrointestinal History: Reports: Diverticulosis, Helicobacter Pylori, PUD Other Gastrointestinal History: hx gastric ulcer Genitourinary History: Reports: None 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 Musculoskeletal History: Reports: Arthritis Neurological History: Reports: Migraines Psychiatric History: Reports: None Endocrine/Metabolic History: Reports: None Hematologic History: Reports: Anemia, Iron Deficiency Immunologic History: Reports: None Oncologic (Cancer) History: Reports: None Dermatologic History: Reports: None - Infectious Disease History Infectious Disease History: Reports: Chicken Pox - Past Surgical History Head Surgeries/Procedures: Reports: None HEENT Surgical History: Reports: Tonsillectomy Cardiovascular Surgical History: Reports: None Respiratory Surgical History: Reports: None GI Surgical History: Reports: Colonoscopy, EGD Female Surgical History: Reports: Tubal Ligation Endocrine Surgical History: Reports: None Neurological Surgical History: Reports: None Musculoskeletal Surgical History: Reports: Hip Replacement Other Musculoskeletal Surgeries/Procedures:: right ROSA Oncologic Surgical History: Reports: None Dermatological Surgical History: Reports: None Social & Family History - Family History Family Medical History: Noncontributory OBGYN: Reports: Musculoskeletal: Reports: Arthritis Oncologic: Reports: Breast, Colon - Caffeine Use Caffeine Use: Reports: None - Living Situation & Occupation Living situation: Reports: , with Spouse Occupation: Employed ED ROS GENERAL - Review of Systems Review Of Systems: ROS reveals no pertinent complaints other than HPI. ED EXAM, GENERAL - Physical Exam Exam: See Below (See dictation) Course - Vital Signs Last Recorded V/S: Last Vital Signs Temp 35.8 C 11/15/18 08:06 Pulse 84 11/15/18 11:12 Resp 16 11/15/18 11:12 BP 143/82 H 11/15/18 11:12 Pulse Ox 91 L 11/15/18 11:12 - Orders/Labs/Meds Orders: Active Orders 24 hr Category Date Time Status Patient Status [ADT] Stat ADT 11/15/18 11:21 Ordered Levofloxacin/Dextrose 5%-Water [Levaquin in D5W 500 MG/ Med 11/15/18 11:20 Ordered 100 ML] 500 mg Premix Bag 1 bag IV ONETIME Sodium Chloride 0.9% [Normal Saline] 1,000 ml Med 11/15/18 11:15 Active IV ASDIRECTED Sodium Chloride 0.9% [Saline Flush] Med 11/15/18 08:18 Active 10 ml FLUSH ASDIRECTED PRN Sodium Chloride 0.9% [Saline Flush] Med 11/15/18 08:18 Active 2.5 ml FLUSH ASDIRECTED PRN Nasogastric Orogastric Tube Insertion [OM.PC] Stat Oth 11/15/18 11:21 Ordered Saline Lock Insert [OM.PC] Stat Oth 11/15/18 08:17 Ordered Medication Orders Sodium Chloride (Normal Saline) 1,000 mls @ 125 mls/hr IV ASDIRECTED NOA Levofloxacin/Dextrose 500 mg/ (Premix) 100 mls @ 100 mls/hr IV ONETIME ONE Stop: 11/15/18 12:19 Sodium Chloride (Saline Flush) 10 ml FLUSH ASDIRECTED PRN PRN Reason: Keep Vein Open Last Admin: 11/15/18 08:47 Dose: 10 ml Sodium Chloride (Saline Flush) 2.5 ml FLUSH ASDIRECTED PRN PRN Reason: Keep Vein Open Last Admin: 11/15/18 08:47 Dose: 2.5 ml Labs: Laboratory Tests 11/15/18 11/15/18 11/15/18 Range/Units 08:33 08:33 08:33 WBC 14.60 H (4.0-11.0) K/uL RBC 5.20 (4.30-5.90) M/uL Hgb 14.9 (12.0-16.0) g/dL Hct 45.6 (36.0-46.0) % MCV 87.7 (80.0-98.0) fL MCH 28.7 (27.0-32.0) pg MCHC 32.7 (31.0-37.0) g/dL RDW Std Deviation 48.7 (28.0-62.0) fl RDW Coeff of Juan Antonio 15 (11.0-15.0) % Plt Count 521 H (150-400) K/uL MPV 8.50 (7.40-12.00) fL Neut % (Auto) 78.8 (48.0-80.0) % Lymph % (Auto) 12.4 L (16.0-40.0) % Payne % (Auto) 7.7 (0.0-15.0) % Eos % (Auto) 0.7 (0.0-7.0) % Baso % (Auto) 0.4 (0.0-1.5) % Neut # (Auto) 11.5 H (1.4-5.7) K/uL Lymph # (Auto) 1.8 (0.6-2.4) K/uL Payne # (Auto) 1.1 H (0.0-0.8) K/uL Eos # (Auto) 0.1 (0.0-0.7) K/uL Baso # (Auto) 0.1 (0.0-0.1) K/uL Nucleated RBC % 0.0 /100WBC Nucleated RBCs # 0 K/uL Sodium 139 (136-145) mmol/L Potassium 2.9 L (3.5-5.1) mmol/L Chloride 97 L (98-107) mmol/L Carbon Dioxide 34.8 H (21.0-32.0) mmol/L BUN 9 (7.0-18.0) mg/dL Creatinine 0.7 (0.6-1.0) mg/dL Est Cr Clr Drug Dosing 61.39 mL/min Estimated GFR (MDRD) > 60.0 ml/min Glucose 139 H (74-106) mg/dL Calcium 10.1 (8.5-10.1) mg/dL Total Bilirubin 0.2 (0.2-1.0) mg/dL AST 17 (15-37) IU/L ALT 27 (14-63) IU/L Alkaline Phosphatase 97 (46-116) U/L Total Protein 7.9 (6.4-8.2) g/dL Albumin 3.2 L (3.4-5.0) g/dL Globulin 4.7 H (2.6-4.0) g/dL Albumin/Globulin Ratio 0.7 L (0.9-1.6) Amylase 72 (25-115) U/L Lipase 120 (73-393) U/L Urine Color YELLOW Urine Appearance CLEAR Urine pH 8.5 H (5.0-8.0) Ur Specific [place] 1.010 (1.001-1.035) Urine Protein TRACE H (NEGATIVE) mg/dL Urine Glucose (UA) NEGATIVE (NEGATIVE) mg/dL Urine Ketones NEGATIVE (NEGATIVE) mg/dL Urine Occult Blood NEGATIVE (NEGATIVE) Urine Nitrite NEGATIVE (NEGATIVE) Urine Bilirubin NEGATIVE (NEGATIVE) Urine Urobilinogen 0.2 (<2.0) EU/dL Ur Leukocyte Esterase NEGATIVE (NEGATIVE) Urine RBC NONE SEEN (0-2/HPF) Urine WBC 0-1 (0-5/HPF) Ur Epithelial Cells RARE (NONE-FEW) Amorphous Sediment MODERATE (NEGATIVE) Urine Bacteria RARE (NEGATIVE) Meds: Medications Generic Name Dose Route Start Last Admin Trade Name Freq PRN Reason Stop Dose Admin Sodium Chloride 1,000 mls @ 125 mls/hr 11/15/18 11:15 Normal Saline IV ASDIRECTED NOA Levofloxacin/Dextrose 500 mg/ 100 mls @ 100 mls/hr 11/15/18 11:20 Premix IV 11/15/18 12:19 ONETIME ONE Sodium Chloride 10 ml 11/15/18 08:18 11/15/18 08:47 Saline Flush FLUSH 10 ml ASDIRECTED PRN Administration Keep Vein Open Sodium Chloride 2.5 ml 11/15/18 08:18 11/15/18 08:47 Saline Flush FLUSH 2.5 ml ASDIRECTED PRN Administration Keep Vein Open Discontinued Medications Generic Name Dose Route Start Last Admin Trade Name Freq PRN Reason Stop Dose Admin Dicyclomine HCl 20 mg 11/15/18 08:31 11/15/18 08:46 Bentyl PO 11/15/18 08:32 20 mg ONETIME ONE Administration Diphenhydramine HCl 25 mg 11/15/18 11:22 Benadryl IVPUSH 11/15/18 11:23 ONETIME ONE Sodium Chloride 1,000 mls @ 999 mls/hr 11/15/18 08:18 11/15/18 08:43 Normal Saline IV 11/15/18 09:18 999 mls/hr STAT ONE Administration Iopamidol 85 ml 11/15/18 09:38 11/15/18 09:41 Isovue Multipack-370 (76%) IVPUSH 11/15/18 09:39 85 ml ONETIME STA Administration Metoclopramide HCl 10 mg 11/15/18 11:22 Reglan IV 11/15/18 11:23 ONETIME ONE Departure - Departure Time of Disposition: 11:26 Disposition: Refer to Observation Condition: Good Clinical Impression: Left sided abdominal pain, Gastric distention - Discharge Information Referrals: PCP,Unknown [Primary Care Provider] - Forms: ED Department Discharge - My Orders Last 24 Hours: My Active Orders 11/15/18 08:17 Saline Lock Insert [OM.PC] Stat 11/15/18 08:18 Sodium Chloride 0.9% [Saline Flush] 10 ml FLUSH ASDIRECTED PRN Sodium Chloride 0.9% [Saline Flush] 2.5 ml FLUSH ASDIRECTED PRN 11/15/18 11:15 Sodium Chloride 0.9% [Normal Saline] 1,000 ml IV ASDIRECTED 11/15/18 11:20 Levofloxacin/Dextrose 5%-Water [Levaquin in D5W 500 MG/100 ML] 500 mg Premix Bag 1 bag IV ONETIME 11/15/18 11:21 Patient Status [ADT] Stat Nasogastric Orogastric Tube Insertion [OM.PC] Stat - Assessment/Plan Last 24 Hours: My Active Orders 11/15/18 08:17 Saline Lock Insert [OM.PC] Stat 11/15/18 08:18 Sodium Chloride 0.9% [Saline Flush] 10 ml FLUSH ASDIRECTED PRN Sodium Chloride 0.9% [Saline Flush] 2.5 ml FLUSH ASDIRECTED PRN 11/15/18 11:15 Sodium Chloride 0.9% [Normal Saline] 1,000 ml IV ASDIRECTED 11/15/18 11:20 Levofloxacin/Dextrose 5%-Water [Levaquin in D5W 500 MG/100 ML] 500 mg Premix Bag 1 bag IV ONETIME 11/15/18 11:21 Patient Status [ADT] Stat Nasogastric Orogastric Tube Insertion [OM.PC] Stat
[2018-11-15] MEDS ORDERED: Sodium Chloride 0.9% 10 ML Syringe FLUSH PRN (08:18)
[2018-11-15] MEDS ORDERED: Sodium Chloride 0.9% 2.5 ML Syringe FLUSH PRN (08:18)
[2018-11-15] MEDS ORDERED: Sodium Chloride 0.9% 1,000 ML IV ONE (08:18)
[2018-11-15] MEDS ORDERED: Dicyclomine 10 MG Cap PO ONE (08:31)
[2018-11-15 09:06] LABS: CHLORIDE,CL 97 mmol/L (98-107); SODIUM,NA 139 mmol/L (136-145)
[2018-11-15] MEDS ORDERED: Iopamidol 755 MG/ML 500 ML Multipack Bottle IVPUSH STA (09:38)
--- NOTE | 2018-11-15 10:52 | CT ---
HISTORY: Abdominal pain. TECHNIQUE: Intravenous contrast enhanced CT of the abdomen and pelvis. COMPARISON: 11/01/2016. FINDINGS: There is no focal liver parenchymal abnormality. No biliary ductal dilatation. Patient is status post cholecystectomy. The spleen and adrenal glands are normal. No focal pancreatic abnormality. Symmetric nephrograms. Small low-density right renal lesions are too small to characterize though may represent small cysts as before. There is no hydronephrosis. No hydronephrosis or obstructive urinary calculus. Urinary bladder does not appear overly distended. - The stomach is distended. The gastric antral/pyloric region appears thickened. There are two small outpouchings in that region, one of which extends superiorly and the other which extends anterolaterally, which may reflect ulcers. There increased number of small lymph nodes. No small bowel obstruction. No appendicitis. Colonic diverticulosis without acute diverticulitis. No fluid collection or free air. No abdominal aortic aneurysm. - Prior right hip replacement. Degenerative changes of the left hip. Degenerative changes of the spine. - Minor atelectasis or scarring within the lung bases. There are few small reticulonodular opacities within the left lower lobe posteriorly and within the right middle lobe which could be inflammatory or postinflammatory. IMPRESSION: 1. Gastric distention with apparent wall thickening involving the antral/pyloric region. There are two small outpouchings in that region which may reflect ulcers. These findings could be inflammatory or neoplastic. Gastric distention may indicate an element of gastric outlet obstruction. 2. Increased number of small adjacent lymph nodes could be reactive though if there is an underlying distal gastric malignancy, metastatic adenopathy may be considered. 3. No fluid collection or free air. Dictated by Fantasma Samson MD @ 11/15/2018 10:50:27 AM Please note that all CT scans at this facility use dose modulation, iterative reconstruction, and/or weight-based dosing when appropriate to reduce radiation dose to as low as reasonably achievable. Dictated by: Fantasma Samson MD @ 11/15/2018 10:51:24 (Electronically Signed)
[2018-11-15] MEDS ORDERED: Sodium Chloride 0.9% 1,000 ML IV SCH (11:15)
[2018-11-15] MEDS ORDERED: Levofloxacin/Dextrose 5%-Water 500 MG in Premix Bag 1 BAG IV ONE (11:20)
[2018-11-15] MEDS ORDERED: Metoclopramide 10 MG/2 ML SDV IV ONE (11:22)
[2018-11-15] MEDS ORDERED: diphenhydrAMINE 50 MG/ML SDV IVPUSH ONE (11:22)
[2018-11-15] MEDS ORDERED: Potassium Chloride Riders 20 MEQ in Premix Bag 1 BAG IV ONE ×2 (11:28→13:30)
[2018-11-15] MEDS ORDERED: Simethicone 80 MG Tab.Chew PO ONE (12:25)
--- NOTE | 2018-11-15 12:45 | PCM.SN ---
- Free Text/Narrative Note: pt seen, chart reviewed; goo, ngt, ivf, reglen, mylicon, protonix; admitted for obs [id number]
[2018-11-15] MEDS ORDERED: Acetaminophen/oxyCODONE 325-5 MG Tab PO PRN (14:21)
--- NOTE | 2018-11-15 14:30 | CONS ---
DATE OF CONSULTATION: 11/15/2018 DATE OF : 1960 PRIMARY CARE PHYSICIAN: Unknown PCP This is a consult from Dr. Carin Kuhn from the ED. CONCERNING QUESTION: Gastric outlet obstruction, possible. HISTORY OF PRESENT ILLNESS: The patient is a 58-year-old lady, who was seen about 2 months ago for a bleeding ulcer, sent to [place] and had a procedure done and at this time, she presented back here for abdominal pain, and the patient remarked that she had well-formed stool 2 times yesterday and was brown. No bloody stool or black tarry stool. Today, she feel nausea and also abdominal pain, seen in the emergency room. CAT scan shows a pretty big stomach and the reading is gastric distention, abdominal wall thickening involving the antral-pyloric region and also possible ulcer, inflammatory or neoplastic. Surgery was consulted after Dr. Kuhn kind enough to call the [facility] team for suggestion on management. Believe that gastric outlet obstruction may be temporary. Will benefit from some medical management, and if not improving, then transfer the patient back to the team. Dr. Kuhn has a very complete history of the situation, and the patient's prior procedure documentation is not available at the time of dictation. We will try to obtain them. Suffice to say, the patient anemic and transferred to [facility] in [place] to a GI specialist, Dr. Santos and had J-tube placed by Dr. Malin and J-tube was removed recently. PAST MEDICAL HISTORY: Significant for bleeding ulcer. PAST SURGICAL HISTORY: J-tube placement. ALLERGIES: Please refer to nursing for details. MEDICATIONS: Please refer to nursing for details. PHYSICAL EXAMINATION: GENERAL: A cachectic-appearing patient, very anxious, and in no acute distress. HEENT: Normocephalic. Sclerae anicteric. LUNGS: Clear to auscultation. HEART: Regular rate and rhythm. ABDOMEN: Soft, nondistended. No pulsating, tender midline abdominal structure. Well-healed surgical scar and a Band-Aid covering the J-tube opening site that has recently removed the J-tube. LABORATORY DATA: Upon consultation, white count is 14.6, H and H are 14.9/46, platelets are 521. INR is 105. BUN and creatinine are 9 and 0.7. UA has no blood. IMPRESSION: Recent bleeding ulcer and surgical procedure done in [place], now presented with gastric outlet obstruction problem. We will try Reglan, Mylicon, and IV fluid and see whether the patient overnight. If not improved, we will return to higher level facility for care. As always, thank you for the kind referral. LILY STANLEY /[id number]
[2018-11-15] MEDS: Sodium Chloride 0.9% 1,000 ML IV SCH (19:32)
[2018-11-16] MEDS: Sodium Chloride 0.9% 1,000 ML IV SCH ×3 (02:14→15:10)
[2018-11-16 06:51] LABS: CHLORIDE,CL 108 mmol/L (98-107); SODIUM,NA 143 mmol/L (136-145)
[2018-11-16] MEDS ORDERED: Pantoprazole 40 MG in Sodium Chloride 0.9% 10 ML IVPUSH SCH (09:00)
[2018-11-16] MEDS ORDERED: Metoclopramide 10 MG Tab PO PRN (09:14)
--- NOTE | 2018-11-16 09:24 | PCM.SURGPN ---
- General Info Date of Service: 11/16/18 Pain Score: 0 - Review of Systems General: Reports: No Symptoms (passing gas) - Patient Data Vitals - Most Recent: Last Vital Signs Temp 97.9 F 11/16/18 04:00 Pulse 74 11/16/18 04:00 Resp 14 11/16/18 04:00 BP 108/60 11/16/18 04:00 Pulse Ox 94 L 11/16/18 04:00 Weight - Most Recent: 106 lb 4.8 oz I&O - Last 24 Hours: Intake & Output 11/15/18 11/16/18 11/16/18 22:59 06:59 14:59 Intake Total 767 1015 Output Total 700 1300 Balance 67 -285 Lab Results Last 24 Hrs: Laboratory Results - last 24 hr 11/16/18 11/16/18 Range/Units 06:07 06:07 WBC 7.58 (4.0-11.0) K/uL RBC 4.73 (4.30-5.90) M/uL Hgb 13.1 (12.0-16.0) g/dL Hct 42.3 (36.0-46.0) % MCV 89.4 (80.0-98.0) fL MCH 27.7 (27.0-32.0) pg MCHC 31.0 (31.0-37.0) g/dL RDW Std Deviation 49.8 (28.0-62.0) fl RDW Coeff of Juan Antonio 15 (11.0-15.0) % Plt Count 399 (150-400) K/uL MPV 8.40 (7.40-12.00) fL Neut % (Auto) 70.1 (48.0-80.0) % Lymph % (Auto) 20.7 (16.0-40.0) % [place] % (Auto) 6.9 (0.0-15.0) % Eos % (Auto) 1.6 (0.0-7.0) % Baso % (Auto) 0.7 (0.0-1.5) % Neut # (Auto) 5.3 (1.4-5.7) K/uL Lymph # (Auto) 1.6 (0.6-2.4) K/uL [place] # (Auto) 0.5 (0.0-0.8) K/uL Eos # (Auto) 0.1 (0.0-0.7) K/uL Baso # (Auto) 0.1 (0.0-0.1) K/uL Nucleated RBC % 0.0 /100WBC Nucleated RBCs # 0 K/uL Sodium 143 (136-145) mmol/L Potassium 4.0 (3.5-5.1) mmol/L Chloride 108 H (98-107) mmol/L Carbon Dioxide 27.6 (21.0-32.0) mmol/L BUN 8 (7.0-18.0) mg/dL Creatinine 0.6 (0.6-1.0) mg/dL Est Cr Clr Drug Dosing 71.62 mL/min Estimated GFR (MDRD) > 60.0 ml/min Glucose 88 (74-106) mg/dL Calcium 8.8 (8.5-10.1) mg/dL Total Bilirubin 0.2 (0.2-1.0) mg/dL AST 11 L (15-37) IU/L ALT 16 (14-63) IU/L Alkaline Phosphatase 72 (46-116) U/L Total Protein 6.1 L (6.4-8.2) g/dL Albumin 2.4 L (3.4-5.0) g/dL Globulin 3.7 (2.6-4.0) g/dL Albumin/Globulin Ratio 0.7 L (0.9-1.6) Med Orders - Current: Current Medications Pantoprazole Sodium 40 mg/ (Sodium Chloride) 10 mls @ 300 mls/hr IVPUSH DAILY NOA Last Admin: 11/16/18 08:41 Dose: 300 mls/hr Sodium Chloride (Normal Saline) 1,000 mls @ 150 mls/hr IV ASDIRECTED NOA Last Admin: 11/16/18 08:40 Dose: 150 mls/hr Metoclopramide HCl (Reglan) 10 mg PO Q6H NOA Oxycodone/Acetaminophen (Percocet 325-5 Mg) 1 tab PO Q8H PRN PRN Reason: pain Sodium Chloride (Saline Flush) 10 ml FLUSH ASDIRECTED PRN PRN Reason: Keep Vein Open Last Admin: 11/15/18 08:47 Dose: 10 ml Sodium Chloride (Saline Flush) 2.5 ml FLUSH ASDIRECTED PRN PRN Reason: Keep Vein Open Last Admin: 11/15/18 08:47 Dose: 2.5 ml Discontinued Medications Dicyclomine HCl (Bentyl) 20 mg PO ONETIME ONE Stop: 11/15/18 08:32 Last Admin: 11/15/18 08:46 Dose: 20 mg Diphenhydramine HCl (Benadryl) 25 mg IVPUSH ONETIME ONE Stop: 11/15/18 11:23 Last Admin: 11/15/18 11:44 Dose: 25 mg Sodium Chloride (Normal Saline) 1,000 mls @ 999 mls/hr IV STAT ONE Stop: 11/15/18 09:18 Last Admin: 11/15/18 08:43 Dose: 999 mls/hr Sodium Chloride (Normal Saline) 1,000 mls @ 125 mls/hr IV ASDIRECTED NOA Last Admin: 11/15/18 11:37 Dose: 125 mls/hr Levofloxacin/Dextrose 500 mg/ (Premix) 100 mls @ 100 mls/hr IV ONETIME ONE Stop: 11/15/18 12:19 Last Admin: 11/15/18 11:49 Dose: 100 mls/hr Potassium Chloride 20 meq/ (Premix) 50 mls @ 25 mls/hr IV ONETIME ONE Stop: 11/15/18 13:27 Last Admin: 11/15/18 17:24 Dose: Not Given Potassium Chloride 20 meq/ (Premix) 50 mls @ 25 mls/hr IV ONETIME ONE Stop: 11/15/18 15:29 Last Admin: 11/15/18 14:08 Dose: 25 mls/hr Iopamidol (Isovue Multipack-370 (76%)) 85 ml IVPUSH ONETIME STA Stop: 11/15/18 09:39 Last Admin: 11/15/18 09:41 Dose: 85 ml Metoclopramide HCl (Reglan) 10 mg IV ONETIME ONE Stop: 11/15/18 11:23 Last Admin: 11/15/18 11:46 Dose: 10 mg Metoclopramide HCl (Reglan) 10 mg PO Q6H PRN PRN Reason: Nausea/Vomiting Simethicone (Simethicone) 80 mg PO ONETIME ONE Stop: 11/15/18 12:26 Last Admin: 11/15/18 14:06 Dose: 80 mg - Exam General: Alert, Oriented GI/Abdominal Exam: Soft, Non-Tender (wbc 8) - Problem List Review Problem List Initiated/Reviewed/Updated: Yes - My Orders Last 24 Hours: Active Orders 24 hr Category Date Time Status Patient Status [ADT] Stat ADT 11/15/18 11:21 Active Communication Order [RC] ROUTINE Care 11/15/18 14:16 Active NG [Gastrointestinal Tube Mgmt] [RC] ASDIRECTED Care 11/15/18 12:23 Active NPO Now [Nothing per Oral Now Diet] [DIET] Diet 11/15/18 Dinner Active Acetaminophen/oxyCODONE [Percocet 325-5 MG] Med 11/15/18 14:21 Active 1 tab PO Q8H PRN Metoclopramide [Reglan] Med 11/16/18 09:16 Active 10 mg PO Q6H Metoclopramide [Reglan] Med 11/16/18 09:14 Stop Req 10 mg PO Q6H PRN Pantoprazole [ProTONIX IV] 40 mg Med 11/16/18 09:00 Active Sodium Chloride 0.9% [Normal Saline] 10 ml IVPUSH DAILY Sodium Chloride 0.9% [Normal Saline] 1,000 ml Med 11/15/18 14:15 Active IV ASDIRECTED Nasogastric Orogastric Tube Insertion [OM.PC] Stat Oth 11/15/18 11:21 Ordered Medication Orders Pantoprazole Sodium 40 mg/ (Sodium Chloride) 10 mls @ 300 mls/hr IVPUSH DAILY [facility] Last Admin: 11/16/18 08:41 Dose: 300 mls/hr Sodium Chloride (Normal Saline) 1,000 mls @ 150 mls/hr IV ASDIRECTED [facility] Last Admin: 11/16/18 08:40 Dose: 150 mls/hr Infusion: 11/16/18 08:40 Dose: 150 mls/hr Admin: 11/16/18 02:14 Dose: 150 mls/hr Infusion: 11/16/18 02:13 Dose: 150 mls/hr Admin: 11/15/18 19:32 Dose: 150 mls/hr Metoclopramide HCl (Reglan) 10 mg PO Q6H [facility] Oxycodone/Acetaminophen (Percocet 325-5 Mg) 1 tab PO Q8H PRN PRN Reason: pain Sodium Chloride (Saline Flush) 10 ml FLUSH ASDIRECTED PRN PRN Reason: Keep Vein Open Last Admin: 11/15/18 08:47 Dose: 10 ml Sodium Chloride (Saline Flush) 2.5 ml FLUSH ASDIRECTED PRN PRN Reason: Keep Vein Open Last Admin: 11/15/18 08:47 Dose: 2.5 ml - Assessment Assessment (Free Text/Narrative):: clinically improved; will do ngt clamp trial, if tolerated, will pull ngt and start on clear; continue reglan 10 mg po q6; possible home tomorrow - Plan Plan (Free Text/Narrative):: clinically improved; will do ngt clamp trial, if tolerated, will pull ngt and start on clear; continue reglan 10 mg po q6; possible home tomorrow
[2018-11-16] MEDS: Metoclopramide 10 MG Tab PO SCH ×2 (10:38→15:11)
[2018-11-16 18:10] VITALS: BP 183/78
== END 2018-11-16 18:27 | disposition home or self-care (01) ==
LOC: MW.ED 07:57 → MW.MS 11:52
PROVIDERS: ADMIT Surgery; ATTEND Surgery
DX: K31.1 Adult hypertrophic pyloric stenosis (principal); Z87.11 Personal history of peptic ulcer disease; Z79.899 Other long term (current) drug therapy
CPT/HCPCS: 36415; 74177; 80053; 81001; 82150; 83690; 85025; 96361; 96365; 96375; 99285; A9270; C9113; J1200; J1956; J2765; J3480; J7040; J7050; Q9967; 99284; G0378

== ENCOUNTER 2019-01-28 15:19 | Observation (INO) | payer BC, OTHER ==
[2019-01-28 16:03] LABS: CHLORIDE,CL 101 mmol/L (98-107); SODIUM,NA 136 mmol/L (136-145)
[2019-01-28] MEDS ORDERED: Iopamidol 755 MG/ML 500 ML Multipack Bottle IVPUSH STA (17:45)
--- NOTE | 2019-01-28 18:24 | CT ---
INDICATION: Fever, abnormal liver enzymes TECHNIQUE: CT Abdomen and pelvis with i.v. contrast. Coronal and sagittal reformats were obtained. CONTRAST: 60 mL Isovue 370 COMPARISON: 11/15/2018 FINDINGS: Lower chest: Mild bronchiectasis is seen in the left lower lobe with mucous impaction of the peripheral bronchioles. Liver: Unremarkable. Spleen: Unremarkable. Pancreas: Unremarkable. Gallbladder: Patient is status post cholecystectomy. Kidney: Malrotation of the left kidney is present which is a normal variant. Adrenal: Unremarkable. Bowel: The patient has undergone interval distal gastrectomy with gastrojejunostomy. The abscess abuts the staple line in the 2nd portion of the duodenum. There is also a small focal gas collection posterior to the 3rd portion of the duodenum measuring 1.2 cm. Moderate amount of stool is present throughout the colon which may be due to chronic constipation. The appendix is not identified. Vascular: Unremarkable. Lymph: Unremarkable. Peritoneum: There is a multiloculated fluid collection with enhancing margins seen in the diandra hepatis with a small component impressing upon the inferior margin of the left lateral segment of the liver, best seen on image 31. Infiltration and edema of the omental fat in the right upper quadrant is present and likely due to combination of postoperative changes and suspected abscess. No pneumoperitoneum is seen. No significant ascites is noted. Pelvis: Evaluation of the pelvic soft tissues and osseous structures are mildly limited by beam hardening artifacts from the right hip prosthesis with the use of iterative reconstruction techniques. Soft tissue: Unremarkable. Bone: Unremarkable for age. IMPRESSIONS: 1. There is a multiloculated fluid collection with enhancing margins seen in the diandra hepatis with a small component impressing upon the inferior margin of the left lateral segment of the liver, best seen on image 31. Findings are likely due to abdominal abscess. 2. The abscess abuts the staple line in the 2nd portion of the duodenum. There is also a small focal gas collection posterior to the 3rd portion of the duodenum measuring 1.2 cm which may represent pneumo retroperitoneum. Imaging follow-up is recommended to exclude dehiscence of the duodenal staple line. Dictated by Rashaad Schwarz MD @ 01/28/2019 6:22:47 PM Please note that all CT scans at this facility use dose modulation, iterative reconstruction, and/or weight-based dosing when appropriate to reduce radiation dose to as low as reasonably achievable. Dictated by: Rashaad Schwarz MD @ 01/28/2019 18:22:54 (Electronically Signed)
[2019-01-28] MEDS: Piperacillin/Tazobactam 3.375 GM in Sodium Chloride 0.9% 50 ML IV SCH ×2 (19:31→23:47)
[2019-01-28] MEDS: Sodium Chloride 0.9% 1,000 ML IV SCH (19:32)
[2019-01-28] MEDS ORDERED: Acetaminophen 325 MG/10.15 ML ML PO PRN (19:40)
--- NOTE | 2019-01-28 19:47 | PCM.HP ---
H&P History of Present Illness - General Date of Service: 01/28/19 Admit Problem/Dx: Admission Diagnosis/Problem Admission Diagnosis/Problem Sepsis - History of Present Illness Initial Comments - Free Text/Narative: 58 yo female with pmh of gastric ulcer who on December 15 underwent Bithroth II gastrojejunostomy at [place]. Since the procedure she has been doing well. She had been recently on keflex due to erythema around surgical site prescribed by Dr. García. Today she developed fevers and rigors. She denies any abdominal pain , nausea or vomiting. She was seen in Dr. Sánchez clinic and foudn to have a leukocytosis and direct admission was arranged. CT scan of the abdomen reported multiloculate fluid collection with enhancing margins seen in the diandra hepatis with a small component impressing upon the inferior marginof the left lateral segment of the liver, the abscess abuts the staple line in the 2nd portion of the duodenum. There is also a small focal gas collection posterior to the 3rd portion of the duodenum measuring 1.2 cm. - Related Data Allergies/Adverse Reactions: Allergies Allergy/AdvReac Type Severity Reaction Status Date / Time No Known Allergies Allergy Verified 01/28/19 19:01 Home Medications: Home Meds Pantoprazole [ProTONIX] 40 mg PO BID 09/23/18 [History] cephALEXin [Cephalexin] 500 mg PO Q6H 01/28/19 [History] Past Medical History HEENT History: Reports: Allergic Rhinitis Other HEENT History: has upper partial removable denture Cardiovascular History: Reports: None Respiratory History: Reports: None Gastrointestinal History: Reports: Diverticulosis, Helicobacter Pylori, PUD Other Gastrointestinal History: hx gastric ulcer Genitourinary History: Reports: None [employer]INE [employer] History: Reports: None Musculoskeletal History: Reports: Arthritis Neurological History: Reports: Migraines Psychiatric History: Reports: None Endocrine/Metabolic History: Reports: None Hematologic History: Reports: Anemia, Iron Deficiency Immunologic History: Reports: None Oncologic (Cancer) History: Reports: None Dermatologic History: Reports: None - Infectious Disease History Infectious Disease History: Reports: Chicken Pox - Past Surgical History Head Surgeries/Procedures: Reports: None HEENT Surgical History: Reports: Tonsillectomy Cardiovascular Surgical History: Reports: None Respiratory Surgical History: Reports: None GI Surgical History: Reports: Colonoscopy, EGD, Other (See Below) Other GI Surgeries/Procedures: Surgery 7wks ago for ulcer removal and rereouting to jejunum @ [place]. September- gastric ulcer bleeding w/ J tube in place Female Surgical History: Reports: Tubal Ligation Endocrine Surgical History: Reports: None Neurological Surgical History: Reports: None Musculoskeletal Surgical History: Reports: Hip Replacement Other Musculoskeletal Surgeries/Procedures:: right ROSA Oncologic Surgical History: Reports: None Other Oncologic Surgeries/Procedures: Family Hisotry of. 2 Sisters Dermatological Surgical History: Reports: None Social & Family History - Family History Family Medical History: Noncontributory OBGYN: Reports: Musculoskeletal: Reports: Arthritis Oncologic: Reports: Breast, Colon Other Oncologic Family History: 2 sisters had breast cancer, mother had colon cancer - Tobacco Use Smoking Status *Q: Former Smoker Used Tobacco, but Quit: Yes Month/Year Tobacco Last Used: 2010 - Caffeine Use Caffeine Use: Reports: Coffee, Tea Caffeine Use Comment: On Occassion - Recreational Drug Use Recreational Drug Use: No - Living Situation & Occupation Living situation: Reports: , with Spouse Occupation: Employed H&P Review of Systems - Review of Systems: Review Of Systems: ROS reveals no pertinent complaints other than HPI. Exam - Exam Exam: See Below - Vital Signs Vital Signs: Last Vital Signs Temp 38.2 C H 01/28/19 18:06 Pulse 114 H 01/28/19 18:06 Resp 16 01/28/19 18:06 BP 119/61 01/28/19 18:06 Pulse Ox 94 L 01/28/19 18:06 Weight: 47.809 kg - Exam General: Alert, Oriented HEENT: Mucosa Moist & [place] Lungs: Clear to Auscultation, Normal Respiratory Effort Cardiovascular: Regular Rate, Regular Rhythm GI/Abdominal Exam: Normal Bowel Sounds, Soft, Non-Tender, No Organomegaly, No Distention, No Mass Extremities: Non-Tender, No Pedal Edema Skin: Warm, Dry, Intact Neurological: Cranial Nerves Intact - Patient Data Lab Results Last 24 hrs: Laboratory Results - last 24 hr 01/28/19 01/28/19 01/28/19 Range/Units 14:16 15:28 15:28 WBC 22.45 H (4.0-11.0) K/uL RBC 4.66 (4.30-5.90) M/uL Hgb 12.7 (12.0-16.0) g/dL Hct 39.1 (36.0-46.0) % MCV 83.9 (80.0-98.0) fL MCH 27.3 (27.0-32.0) pg MCHC 32.5 (31.0-37.0) g/dL RDW Std Deviation 52.9 (28.0-62.0) fl RDW Coeff of Juan Antonio 17 H (11.0-15.0) % Plt Count 365 (150-400) K/uL MPV 8.60 (7.40-12.00) fL Neut % (Auto) 92.5 H (48.0-80.0) % Lymph % (Auto) 2.5 L (16.0-40.0) % [place] % (Auto) 4.4 (0.0-15.0) % Eos % (Auto) 0.4 (0.0-7.0) % Baso % (Auto) 0.2 (0.0-1.5) % Neut # (Auto) 20.8 H (1.4-5.7) K/uL Lymph # (Auto) 0.6 (0.6-2.4) K/uL [place] # (Auto) 1.0 H (0.0-0.8) K/uL Eos # (Auto) 0.1 (0.0-0.7) K/uL Baso # (Auto) 0.0 (0.0-0.1) K/uL Nucleated RBC % 0.0 /100WBC Nucleated RBCs # 0 K/uL Lactate (0.20-2.00) mmol/L Sodium 136 (136-145) mmol/L Potassium 3.8 (3.5-5.1) mmol/L Chloride 101 (98-107) mmol/L Carbon Dioxide 24.0 (21.0-32.0) mmol/L BUN 14 (7.0-18.0) mg/dL Creatinine 0.7 (0.6-1.0) mg/dL Est Cr Clr Drug Dosing TNP Estimated GFR (MDRD) > 60.0 ml/min Glucose 156 H (74-106) mg/dL Calcium 9.0 (8.5-10.1) mg/dL Total Bilirubin 0.4 (0.2-1.0) mg/dL AST 295 H (15-37) IU/L ALT 231 H (14-63) IU/L Alkaline Phosphatase 376 H (46-116) U/L Total Protein 7.4 (6.4-8.2) g/dL Albumin 3.4 (3.4-5.0) g/dL Globulin 4.0 (2.6-4.0) g/dL Albumin/Globulin Ratio 0.9 (0.9-1.6) Urine Color YELLOW Urine Appearance CLEAR Urine pH 7.0 (5.0-8.0) Ur Specific [place] 1.015 (1.001-1.035) Urine Protein NEGATIVE (NEGATIVE) mg/dL Urine Glucose (UA) NEGATIVE (NEGATIVE) mg/dL Urine Ketones NEGATIVE (NEGATIVE) mg/dL Urine Occult Blood TRACE-LYSED H (NEGATIVE) Urine Nitrite NEGATIVE (NEGATIVE) Urine Bilirubin NEGATIVE (NEGATIVE) Urine Urobilinogen 0.2 (<2.0) EU/dL Ur Leukocyte Esterase NEGATIVE (NEGATIVE) Urine RBC 0-2 (0-2/HPF) Urine WBC 0-2 (0-5/HPF) Ur Epithelial Cells OCCASIONAL (NONE-FEW) Urine Bacteria RARE (NEGATIVE) 01/28/19 Range/Units 19:14 WBC (4.0-11.0) K/uL RBC (4.30-5.90) M/uL Hgb (12.0-16.0) g/dL Hct (36.0-46.0) % MCV (80.0-98.0) fL MCH (27.0-32.0) pg MCHC (31.0-37.0) g/dL RDW Std Deviation (28.0-62.0) fl RDW Coeff of Juan Antonio (11.0-15.0) % Plt Count (150-400) K/uL MPV (7.40-12.00) fL Neut % (Auto) (48.0-80.0) % Lymph % (Auto) (16.0-40.0) % [place] % (Auto) (0.0-15.0) % Eos % (Auto) (0.0-7.0) % Baso % (Auto) (0.0-1.5) % Neut # (Auto) (1.4-5.7) K/uL Lymph # (Auto) (0.6-2.4) K/uL [place] # (Auto) (0.0-0.8) K/uL Eos # (Auto) (0.0-0.7) K/uL Baso # (Auto) (0.0-0.1) K/uL Nucleated RBC % /100WBC Nucleated RBCs # K/uL Lactate 1.0 (0.20-2.00) mmol/L Sodium (136-145) mmol/L Potassium (3.5-5.1) mmol/L Chloride (98-107) mmol/L Carbon Dioxide (21.0-32.0) mmol/L BUN (7.0-18.0) mg/dL Creatinine (0.6-1.0) mg/dL Est Cr Clr Drug Dosing Estimated GFR (MDRD) ml/min Glucose (74-106) mg/dL Calcium (8.5-10.1) mg/dL Total Bilirubin (0.2-1.0) mg/dL AST (15-37) IU/L ALT (14-63) IU/L Alkaline Phosphatase (46-116) U/L Total Protein (6.4-8.2) g/dL Albumin (3.4-5.0) g/dL Globulin (2.6-4.0) g/dL Albumin/Globulin Ratio (0.9-1.6) Urine Color Urine Appearance Urine pH (5.0-8.0) Ur Specific [place] (1.001-1.035) Urine Protein (NEGATIVE) mg/dL Urine Glucose (UA) (NEGATIVE) mg/dL Urine Ketones (NEGATIVE) mg/dL Urine Occult Blood (NEGATIVE) Urine Nitrite (NEGATIVE) Urine Bilirubin (NEGATIVE) Urine Urobilinogen (<2.0) EU/dL Ur Leukocyte Esterase (NEGATIVE) Urine RBC (0-2/HPF) Urine WBC (0-5/HPF) Ur Epithelial Cells (NONE-FEW) Urine Bacteria (NEGATIVE) Result Diagrams: 01/29/19 05:25 01/29/19 05:25 Problem List Initiated/Reviewed/Updated: Yes Orders Last 24hrs: Active Orders 24 hr Category Date Time Status Admission Status [Patient Status] [ADT] Routine ADT 01/28/19 18:16 Active Antiembolic Devices [RC] PER UNIT ROUTINE Care 01/28/19 19:41 Ordered Notify Provider Consults [RC] ASDIRECTED Care 01/28/19 19:41 Ordered Oxygen Therapy [RC] PRN Care 01/28/19 19:40 Ordered VTE/DVT Education [RC] PER UNIT ROUTINE Care 01/28/19 19:40 Ordered Vital Signs [RC] Q4H Care 01/28/19 19:40 Ordered Consult to Physician [CONS] Routine Cons 01/28/19 19:40 Ordered CBC WITH AUTO DIFF [HEME] AM Lab 01/29/19 05:11 Ordered CBC WITH AUTO DIFF [HEME] AM Lab 01/30/19 05:11 Ordered COMPREHENSIVE METABOLIC PN,CMP [CHEM] AM Lab 01/29/19 05:11 Ordered COMPREHENSIVE METABOLIC PN,CMP [CHEM] AM Lab 01/30/19 05:11 Ordered CULTURE BLOOD [BC] Routine Lab 01/28/19 16:45 Received CULTURE BLOOD [BC] Routine Lab 01/28/19 16:55 Received CULTURE URINE [RM] Routine Lab 01/28/19 14:16 Received Acetaminophen [Tylenol] Med 01/28/19 19:40 Ordered 325 mg PO Q4H PRN Pharmacy to Dose - Vancomycin Med 01/28/19 19:45 Ordered 1 dose .XX ASDIRECTED Piperacillin/Tazobactam [Piperacil-Tazobact] 3.375 gm Med 01/28/19 18:00 Active Sodium Chloride 0.9% [Normal Saline] 50 ml IV Q6H Sodium Chloride 0.9% [Normal Saline] 1,000 ml Med 01/28/19 18:45 Active IV ASDIRECTED Sequential Compression Device [OM.PC] Per Unit Routine Oth 01/28/19 19:41 Ordered Medication Orders Acetaminophen (Tylenol) 325 mg PO Q4H PRN PRN Reason: Pain Piperacillin Sod/Tazobactam (Sod 3.375 gm/ Sodium Chloride) 50 mls @ 100 mls/ hr IV Q6H [facility] Last Admin: 01/28/19 19:31 Dose: 100 mls/hr Sodium Chloride (Normal Saline) 1,000 mls @ 125 mls/hr IV ASDIRECTED NOA Last Admin: 01/28/19 19:32 Dose: 125 mls/hr Vancomycin HCl (Pharmacy To Dose - Vancomycin) 1 dose .XX ASDIRECTED [facility] Assessment/Plan Comment:: 58 yo female with history of gastrojejunostomy with likely intraabdominal abscess. Blood cultures have been ordered. Patient does not appear septic. We treat with broad spectrum antibiotics. I have consulted Dr. Barrios who will be in shortly to see patient.
[2019-01-28] MEDS: Acetaminophen 325 MG Tab PO PRN ×2 (20:09→23:54)
[2019-01-28] MEDS ORDERED: Vancomycin 1 GM SDV ONE (20:27)
--- NOTE | 2019-01-28 22:01 | PCM.SN ---
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 long discussion w pt and family, concur and proceed; [id number]
--- NOTE | 2019-01-29 02:21 | CONS ---
DATE OF CONSULTATION: 01/28/2019 DATE OF : 1960 PRIMARY CARE PHYSICIAN: Neville García M.D. Consult from Dr. Mahmood. CONCERNING QUESTION: Abdominal abscess and leukocytosis. HISTORY OF PRESENT ILLNESS: The patient is a 58 years old lady and known to our service for at least 3 trips to the emergency room for the last 6 months. 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 She went to [place], had surgery done, and in November she returned to the emergency room with gastric outlet obstruction. Subsequently, she transferred to [place] and had a surgery done, Billroth II gastrectomy for bleeding ulcer. The patient reports she did very well. Once she went home, stayed in [place] for about 1 week. She went home and everything has been fine. Surgery was done on December 23 and at that time she showed up in the emergency room because she was complaining of fever and weakness in the primary care physician office, Dr. García's office. She had a workup in the emergency room. Got a blood work which shows white count of 22 and H and H of 13 and 40, and also had a CAT scan. CAT scan showed possible intraabdominal abscess and with free air, 1.2 cm next to the duodenal stump. The patient was subsequent admitted to Dr. Mahmood's service and Surgery was consulted for further management. The patient also noted to have a low-grade temp at the time of admission; however, the patient mentioned that she was 103.8 when seen in emergency room. PAST MEDICAL HISTORY: Please refer to previous admission note for details. PAST SURGICAL HISTORY: Please refer to previous admission note for details. ALLERGIES: Please refer to previous admission note for details. MEDICATION: Please refer to previous admission note for details. PHYSICAL EXAMINATION: GENERAL: A very pleasant lady, resting comfortably in bed, in no acute distress. HEENT: Normocephalic and atraumatic. Sclerae anicteric. LUNGS: Clear to auscultation. HEART: Regular rate and rhythm. ABDOMEN: Soft, nondistended. No pulsating tender midline abdominal structure. Well-healed midline surgical scar and with a very small cutaneous scab next to the umbilicus. Nontender in all 4 quadrants. Surgical scar is well healed. LABORATORY DATA: Upon consultation, white count is 22, H and H is 13 and 39, platelets 365. BUN is 14, creatinine is 0.7. The liver function tests are quite elevated. AST is 300, ALT is 200 and alkaline phosphatase is 400. UA has no signs of infection or UTI. Her liver function tests were noted to be normal 2 months ago before Billroth II surgery. ASSESSMENT AND PLAN: With patient's situation of intraabdominal abscess from the CAT scan of 1.2 cm, the patient may have a leak; however, the patient has no pain at all and suggests that the abscess that was read in the CAT scan may be sterile abscess that means left behind from prior surgery. In order to assess possible leak, the patient would benefit to have a CAT scan of abdomen and pelvis with p.o. and IV contrast. Must use a Gastrografin. No barium as we looking for possible leak. The whole treatment plan has been discussed with the patient. The patient concurred to proceed as planned and we would devise a treatment plan after the CAT scan result. As always, thank you for the kind referral. LILY / JADEN /[id number] RADU
[2019-01-29] MEDS: Sodium Chloride 0.9% 1,000 ML IV SCH ×2 (04:16→12:49)
[2019-01-29 06:11] LABS: CHLORIDE,CL 105 mmol/L (98-107); SODIUM,NA 138 mmol/L (136-145)
[2019-01-29] MEDS: Piperacillin/Tazobactam 3.375 GM in Sodium Chloride 0.9% 50 ML IV SCH ×2 (06:11→12:48)
--- NOTE | 2019-01-29 09:21 | CT ---
HISTORY: Six days postop gastrojejunostomy. Evaluate for bile leak. COMPARISON: 01/28/2019. TECHNIQUE: Noncontrast axial images were obtained to the abdomen and pelvis. FINDINGS: Postoperative changes of gastrojejunostomy. There is contrast filling the stomach and proximal small bowel. No evidence for bowel leak. Irregular fluid collection or abscess in the right upper quadrant appears stable from the previous study. Mesenteric fluid and stranding is unchanged. No evidence for bowel obstruction. The liver, spleen, pancreas, adrenal glands and kidneys are grossly normal without contrast opacification. Cholecystectomy. Right hip arthroplasty. IMPRESSION: No evidence for bowel leak. Please note that all CT scans at this facility use dose modulation, iterative reconstruction, and/or weight-based dosing when appropriate to reduce radiation dose to as low as reasonably achievable. Dictated by Ashley Roy MD @ Jan 29 2019 9:10AM Signed by Dr. Ashley Roy @ Jan 29 2019 9:20AM
--- NOTE | 2019-01-29 11:55 | PCM.SURGPN ---
- General Info Date of Service: 01/29/19 Functional Status: Reports: Pain Controlled - Patient Data Vitals - Most Recent: Last Vital Signs Temp 98.4 F 01/29/19 07:35 Pulse 93 01/29/19 07:35 Resp 16 01/29/19 07:35 BP 103/50 L 01/29/19 07:35 Pulse Ox 94 L 01/29/19 07:35 Weight - Most Recent: 105 lb 6.4 oz I&O - Last 24 Hours: Intake & Output 01/28/19 01/29/19 01/29/19 22:59 06:59 14:59 Intake Total 250 100 Output Total 350 1000 Balance -350 250 -900 Lab Results Last 24 Hrs: Laboratory Results - last 24 hr 01/28/19 01/28/19 01/28/19 Range/Units 14:16 15:28 15:28 WBC 22.45 H (4.0-11.0) K/uL RBC 4.66 (4.30-5.90) M/uL Hgb 12.7 (12.0-16.0) g/dL Hct 39.1 (36.0-46.0) % MCV 83.9 (80.0-98.0) fL MCH 27.3 (27.0-32.0) pg MCHC 32.5 (31.0-37.0) g/dL RDW Std Deviation 52.9 (28.0-62.0) fl RDW Coeff of Juan Antonio 17 H (11.0-15.0) % Plt Count 365 (150-400) K/uL MPV 8.60 (7.40-12.00) fL Neut % (Auto) 92.5 H (48.0-80.0) % Lymph % (Auto) 2.5 L (16.0-40.0) % [place] % (Auto) 4.4 (0.0-15.0) % Eos % (Auto) 0.4 (0.0-7.0) % Baso % (Auto) 0.2 (0.0-1.5) % Neut # (Auto) 20.8 H (1.4-5.7) K/uL Lymph # (Auto) 0.6 (0.6-2.4) K/uL [place] # (Auto) 1.0 H (0.0-0.8) K/uL Eos # (Auto) 0.1 (0.0-0.7) K/uL Baso # (Auto) 0.0 (0.0-0.1) K/uL Add Manual Diff Neutrophils % (Manual) (48.0-80.0) % Band Neutrophils % % Lymphocytes % (Manual) (16.0-40.0) % Monocytes % (Manual) (0.0-15.0) % Nucleated RBC % 0.0 /100WBC Absolute Seg Neuts (1.4-5.7) Band Neutrophils # Lymphocytes # (Manual) (0.6-2.4) Monocytes # (Manual) (0.0-0.8) Nucleated RBCs # 0 K/uL Lactate (0.20-2.00) mmol/L Sodium 136 (136-145) mmol/L Potassium 3.8 (3.5-5.1) mmol/L Chloride 101 (98-107) mmol/L Carbon Dioxide 24.0 (21.0-32.0) mmol/L BUN 14 (7.0-18.0) mg/dL Creatinine 0.7 (0.6-1.0) mg/dL Est Cr Clr Drug Dosing TNP Estimated GFR (MDRD) > 60.0 ml/min Glucose 156 H (74-106) mg/dL Calcium 9.0 (8.5-10.1) mg/dL Total Bilirubin 0.4 (0.2-1.0) mg/dL AST 295 H (15-37) IU/L ALT 231 H (14-63) IU/L Alkaline Phosphatase 376 H (46-116) U/L Total Protein 7.4 (6.4-8.2) g/dL Albumin 3.4 (3.4-5.0) g/dL Globulin 4.0 (2.6-4.0) g/dL Albumin/Globulin Ratio 0.9 (0.9-1.6) Urine Color YELLOW Urine Appearance CLEAR Urine pH 7.0 (5.0-8.0) Ur Specific [place] 1.015 (1.001-1.035) Urine Protein NEGATIVE (NEGATIVE) mg/dL Urine Glucose (UA) NEGATIVE (NEGATIVE) mg/dL Urine Ketones NEGATIVE (NEGATIVE) mg/dL Urine Occult Blood TRACE-LYSED H (NEGATIVE) Urine Nitrite NEGATIVE (NEGATIVE) Urine Bilirubin NEGATIVE (NEGATIVE) Urine Urobilinogen 0.2 (<2.0) EU/dL Ur Leukocyte Esterase NEGATIVE (NEGATIVE) Urine RBC 0-2 (0-2/HPF) Urine WBC 0-2 (0-5/HPF) Ur Epithelial Cells OCCASIONAL (NONE-FEW) Urine Bacteria RARE (NEGATIVE) 01/28/19 01/29/19 01/29/19 Range/Units 19:14 05:25 05:25 WBC 28.06 H (4.0-11.0) K/uL RBC 4.44 (4.30-5.90) M/uL Hgb 11.6 L (12.0-16.0) g/dL Hct 36.8 (36.0-46.0) % MCV 82.9 (80.0-98.0) fL MCH 26.1 L (27.0-32.0) pg MCHC 31.5 (31.0-37.0) g/dL RDW Std Deviation 53.3 (28.0-62.0) fl RDW Coeff of Juan Antonio 18 H (11.0-15.0) % Plt Count 333 (150-400) K/uL MPV 8.60 (7.40-12.00) fL Neut % (Auto) (48.0-80.0) % Lymph % (Auto) (16.0-40.0) % Weston % (Auto) (0.0-15.0) % Eos % (Auto) (0.0-7.0) % Baso % (Auto) (0.0-1.5) % Neut # (Auto) (1.4-5.7) K/uL Lymph # (Auto) (0.6-2.4) K/uL [place] # (Auto) (0.0-0.8) K/uL Eos # (Auto) (0.0-0.7) K/uL Baso # (Auto) (0.0-0.1) K/uL Add Manual Diff YES Neutrophils % (Manual) 79 (48.0-80.0) % Band Neutrophils % 10 % Lymphocytes % (Manual) 3 L (16.0-40.0) % Monocytes % (Manual) 8 (0.0-15.0) % Nucleated RBC % 0.0 /100WBC Absolute Seg Neuts 22.2 H (1.4-5.7) Band Neutrophils # 2.8 Lymphocytes # (Manual) 0.8 (0.6-2.4) Monocytes # (Manual) 2.2 H (0.0-0.8) Nucleated RBCs # 0 K/uL Lactate 1.0 (0.20-2.00) mmol/L Sodium 138 (136-145) mmol/L Potassium 3.2 L (3.5-5.1) mmol/L Chloride 105 (98-107) mmol/L Carbon Dioxide 21.6 (21.0-32.0) mmol/L BUN 11 (7.0-18.0) mg/dL Creatinine 0.6 (0.6-1.0) mg/dL Est Cr Clr Drug Dosing 71.62 Estimated GFR (MDRD) > 60.0 ml/min Glucose 118 H (74-106) mg/dL Calcium 8.3 L (8.5-10.1) mg/dL Total Bilirubin 1.0 (0.2-1.0) mg/dL AST 185 H (15-37) IU/L ALT 244 H (14-63) IU/L Alkaline Phosphatase 335 H (46-116) U/L Total Protein 6.4 (6.4-8.2) g/dL Albumin 2.7 L (3.4-5.0) g/dL Globulin 3.7 (2.6-4.0) g/dL Albumin/Globulin Ratio 0.7 L (0.9-1.6) Urine Color Urine Appearance Urine pH (5.0-8.0) Ur Specific [place] (1.001-1.035) Urine Protein (NEGATIVE) mg/dL Urine Glucose (UA) (NEGATIVE) mg/dL Urine Ketones (NEGATIVE) mg/dL Urine Occult Blood (NEGATIVE) Urine Nitrite (NEGATIVE) Urine Bilirubin (NEGATIVE) Urine Urobilinogen (<2.0) EU/dL Ur Leukocyte Esterase (NEGATIVE) Urine RBC (0-2/HPF) Urine WBC (0-5/HPF) Ur Epithelial Cells (NONE-FEW) Urine Bacteria (NEGATIVE) Med Orders - Current: Current Medications Acetaminophen (Tylenol) 325 mg PO Q4H PRN PRN Reason: Pain Last Admin: 01/28/19 23:54 Dose: 325 mg Piperacillin Sod/Tazobactam (Sod 3.375 gm/ Sodium Chloride) 50 mls @ 100 mls/ hr IV Q6H [facility] Last Admin: 01/29/19 06:11 Dose: 100 mls/hr Sodium Chloride (Normal Saline) 1,000 mls @ 125 mls/hr IV ASDIRECTED [facility] Last Admin: 01/29/19 04:16 Dose: 125 mls/hr Vancomycin HCl 500 mg/ Sodium (Chloride) 100 mls @ 66.667 mls/hr IV Q12H [facility] Last Admin: 01/29/19 09:45 Dose: 66.667 mls/hr Vancomycin HCl (Pharmacy To Dose - Vancomycin) 1 dose .XX ASDIRECTED [facility] Discontinued Medications Acetaminophen (Tylenol) 325 mg PO Q4H PRN PRN Reason: Pain Vancomycin HCl 500 mg/ Sodium (Chloride) 100 mls @ 66.667 mls/hr IV Q12H [facility] Vancomycin HCl 1 gm/ Sodium (Chloride) 250 mls @ 166 mls/hr IV Q12H [facility] Vancomycin HCl 1 gm/ Sodium (Chloride) 250 mls @ 166 mls/hr IV ONETIME ONE Stop: 01/28/19 22:30 Last Admin: 01/28/19 21:32 Dose: 166 mls/hr Iopamidol (Isovue Multipack-370 (76%)) 60 ml IVPUSH ONETIME STA Stop: 01/28/19 17:46 Last Admin: 01/28/19 17:45 Dose: 60 ml Vancomycin HCl (Vancomycin) Confirm Administered Dose 1 gm .ROUTE .STK-MED ONE Stop: 01/28/19 20:28 Last Admin: 01/28/19 21:32 Dose: Not Given - Exam GI/Abdominal Exam: Soft (CT > no bowel leak) - Problem List Review Problem List Initiated/Reviewed/Updated: Yes - My Orders Last 24 Hours: Active Orders 24 hr Category Date Time Status Admission Status [Patient Status] [ADT] Routine ADT 01/28/19 18:16 Active Antiembolic Devices [RC] PER UNIT ROUTINE Care 01/28/19 19:41 Active Oxygen Therapy [RC] PRN Care 01/28/19 19:40 Active VTE/DVT Education [RC] PER UNIT ROUTINE Care 01/28/19 19:40 Active Vital Signs [RC] Q4H Care 01/28/19 19:40 Active Consult to Physician [CONS] Routine Cons 01/28/19 19:40 Active Nothing Per Oral Diet [DIET] Diet 01/29/19 Breakfast Active Abdomen Ltd [US] Urgent Exams 01/29/19 10:18 Taken CBC WITH AUTO DIFF [HEME] AM Lab 01/30/19 05:11 Ordered COMPREHENSIVE METABOLIC PN,CMP [CHEM] AM Lab 01/30/19 05:11 Ordered CULTURE BLOOD [BC] Routine Lab 01/28/19 16:45 Received CULTURE BLOOD [BC] Routine Lab 01/28/19 16:55 Received CULTURE URINE [RM] Routine Lab 01/28/19 14:16 Received VANCOMYCIN TROUGH [CHEM] Timed Lab 01/30/19 07:30 Ordered Acetaminophen [Tylenol] Med 01/28/19 19:50 Active 325 mg PO Q4H PRN Pharmacy to Dose - Vancomycin Med 01/28/19 19:45 Pending 1 dose .XX ASDIRECTED Piperacillin/Tazobactam [Piperacil-Tazobact] 3.375 gm Med 01/28/19 18:00 Active Sodium Chloride 0.9% [Normal Saline] 50 ml IV Q6H Sodium Chloride 0.9% [Normal Saline] 1,000 ml Med 01/28/19 18:45 Active IV ASDIRECTED Vancomycin 500 mg Med 01/29/19 09:30 Active Sodium Chloride 0.9% [Normal Saline] 100 ml IV Q12H Sequential Compression Device [OM.PC] Per Unit Routine Oth 01/28/19 19:41 Ordered Medication Orders Acetaminophen (Tylenol) 325 mg PO Q4H PRN PRN Reason: Pain Last Admin: 01/28/19 23:54 Dose: 325 mg Admin: 01/28/19 20:09 Dose: 325 mg Piperacillin Sod/Tazobactam (Sod 3.375 gm/ Sodium Chloride) 50 mls @ 100 mls/ hr IV Q6H [facility] Last Admin: 01/29/19 06:11 Dose: 100 mls/hr Infusion: 01/29/19 00:17 Dose: 100 mls/hr Admin: 01/28/19 23:47 Dose: 100 mls/hr Infusion: 01/28/19 20:01 Dose: 100 mls/hr Admin: 01/28/19 19:31 Dose: 100 mls/hr Sodium Chloride (Normal Saline) 1,000 mls @ 125 mls/hr IV ASDIRECTED [facility] Last Admin: 01/29/19 04:16 Dose: 125 mls/hr Infusion: 01/29/19 03:32 Dose: 125 mls/hr Admin: 01/28/19 19:32 Dose: 125 mls/hr Vancomycin HCl 500 mg/ Sodium (Chloride) 100 mls @ 66.667 mls/hr IV Q12H [facility] Last Admin: 01/29/19 09:45 Dose: 66.667 mls/hr Vancomycin HCl (Pharmacy To Dose - Vancomycin) 1 dose .XX ASDIRECTED [facility] - Assessment Assessment (Free Text/Narrative):: CT w po contrast did not indicate any leak, but with a temp of 103, and wbc 28, and multifocal abscess, and a focal gas collection next to duodenum 3 rd portion , clinically there is a leak; talked to pt, and agree with transfer back to [place] for further management; - Plan Plan (Free Text/Narrative):: CT w po contrast did not indicate any leak, but with a temp of 103, and wbc 28, and multifocal abscess, and a focal gas collection next to duodenum 3 rd portion , clinically there is a leak; talked to pt, and agree with transfer back to [place] for further management;
--- NOTE | 2019-01-29 12:33 | PCM.DCSUM1 ---
Discharge Summary - Discharge Data Discharge Date: 01/29/19 Discharge Disposition: Home, Self-Care 01 Condition: Good - Patient Summary/Data Consults: Consultations 01/28/19 19:40 Consult to Physician [CONS] Routine Hospital Course: 58 yo female with pmh of gastric ulcer who on December 15 underwent Bithroth II gastrojejunostomy at [place]. She was directly admitted from clinic at [facility] 01/28/19 when she presented with fevers, and leukocytosis. Her exam was benign and patient reports no focal symptoms. CT scan of the abdomen reported multiloculate fluid collection with enhancing margins seen in the diandra hepatis with a small component impressing upon the inferior margin of the left lateral segment of the liver, the abscess abuts the staple line in the 2nd portion of the duodenum. There is also a small focal gas collection posterior to the 3rd portion of the duodenum measuring 1.2 cm. She was treated with Vancomycin and Zosyn. Dr. Barrios was consulted. This morning her WBC increased to 28,060 and she was spiking fevers. Due to concerns of leak of the duodenum Dr. Barrios arranged for transfer to [facility]. Transfer by air is being arranged. - Discharge Plan Home Medications: Home Meds Pantoprazole [ProTONIX] 40 mg PO BID 09/23/18 [History] cephALEXin [Cephalexin] 500 mg PO Q6H 01/28/19 [History] - Discharge Summary/Plan Comment DC Time >30 min.: No - Patient Data Vitals - Most Recent: Last Vital Signs Temp 36.9 C 01/29/19 07:35 Pulse 93 01/29/19 07:35 Resp 16 01/29/19 07:35 BP 103/50 L 01/29/19 07:35 Pulse Ox 94 L 01/29/19 07:35 Weight - Most Recent: 47.809 kg I&O - Last 24 hours: Intake & Output 01/28/19 01/29/19 01/29/19 22:59 06:59 14:59 Intake Total 250 100 Output Total 350 1000 Balance -350 250 -900 Lab Results - Last 24 hrs: Laboratory Results - last 24 hr 01/28/19 01/28/19 01/28/19 Range/Units 14:16 15:28 15:28 WBC 22.45 H (4.0-11.0) K/uL RBC 4.66 (4.30-5.90) M/uL Hgb 12.7 (12.0-16.0) g/dL Hct 39.1 (36.0-46.0) % MCV 83.9 (80.0-98.0) fL MCH 27.3 (27.0-32.0) pg MCHC 32.5 (31.0-37.0) g/dL RDW Std Deviation 52.9 (28.0-62.0) fl RDW Coeff of Juan Antonio 17 H (11.0-15.0) % Plt Count 365 (150-400) K/uL MPV 8.60 (7.40-12.00) fL Neut % (Auto) 92.5 H (48.0-80.0) % Lymph % (Auto) 2.5 L (16.0-40.0) % [place] % (Auto) 4.4 (0.0-15.0) % Eos % (Auto) 0.4 (0.0-7.0) % Baso % (Auto) 0.2 (0.0-1.5) % Neut # (Auto) 20.8 H (1.4-5.7) K/uL Lymph # (Auto) 0.6 (0.6-2.4) K/uL [place] # (Auto) 1.0 H (0.0-0.8) K/uL Eos # (Auto) 0.1 (0.0-0.7) K/uL Baso # (Auto) 0.0 (0.0-0.1) K/uL Add Manual Diff Neutrophils % (Manual) (48.0-80.0) % Band Neutrophils % % Lymphocytes % (Manual) (16.0-40.0) % Monocytes % (Manual) (0.0-15.0) % Nucleated RBC % 0.0 /100WBC Absolute Seg Neuts (1.4-5.7) Band Neutrophils # Lymphocytes # (Manual) (0.6-2.4) Monocytes # (Manual) (0.0-0.8) Nucleated RBCs # 0 K/uL Lactate (0.20-2.00) mmol/L Sodium 136 (136-145) mmol/L Potassium 3.8 (3.5-5.1) mmol/L Chloride 101 (98-107) mmol/L Carbon Dioxide 24.0 (21.0-32.0) mmol/L BUN 14 (7.0-18.0) mg/dL Creatinine 0.7 (0.6-1.0) mg/dL Est Cr Clr Drug Dosing TNP Estimated GFR (MDRD) > 60.0 ml/min Glucose 156 H (74-106) mg/dL Calcium 9.0 (8.5-10.1) mg/dL Total Bilirubin 0.4 (0.2-1.0) mg/dL AST 295 H (15-37) IU/L ALT 231 H (14-63) IU/L Alkaline Phosphatase 376 H (46-116) U/L Total Protein 7.4 (6.4-8.2) g/dL Albumin 3.4 (3.4-5.0) g/dL Globulin 4.0 (2.6-4.0) g/dL Albumin/Globulin Ratio 0.9 (0.9-1.6) Urine Color YELLOW Urine Appearance CLEAR Urine pH 7.0 (5.0-8.0) Ur Specific [place] 1.015 (1.001-1.035) Urine Protein NEGATIVE (NEGATIVE) mg/dL Urine Glucose (UA) NEGATIVE (NEGATIVE) mg/dL Urine Ketones NEGATIVE (NEGATIVE) mg/dL Urine Occult Blood TRACE-LYSED H (NEGATIVE) Urine Nitrite NEGATIVE (NEGATIVE) Urine Bilirubin NEGATIVE (NEGATIVE) Urine Urobilinogen 0.2 (<2.0) EU/dL Ur Leukocyte Esterase NEGATIVE (NEGATIVE) Urine RBC 0-2 (0-2/HPF) Urine WBC 0-2 (0-5/HPF) Ur Epithelial Cells OCCASIONAL (NONE-FEW) Urine Bacteria RARE (NEGATIVE) 01/28/19 01/29/19 01/29/19 Range/Units 19:14 05:25 05:25 WBC 28.06 H (4.0-11.0) K/uL RBC 4.44 (4.30-5.90) M/uL Hgb 11.6 L (12.0-16.0) g/dL Hct 36.8 (36.0-46.0) % MCV 82.9 (80.0-98.0) fL MCH 26.1 L (27.0-32.0) pg MCHC 31.5 (31.0-37.0) g/dL RDW Std Deviation 53.3 (28.0-62.0) fl RDW Coeff of Juan Antonio 18 H (11.0-15.0) % Plt Count 333 (150-400) K/uL MPV 8.60 (7.40-12.00) fL Neut % (Auto) (48.0-80.0) % Lymph % (Auto) (16.0-40.0) % [place] % (Auto) (0.0-15.0) % Eos % (Auto) (0.0-7.0) % Baso % (Auto) (0.0-1.5) % Neut # (Auto) (1.4-5.7) K/uL Lymph # (Auto) (0.6-2.4) K/uL [place] # (Auto) (0.0-0.8) K/uL Eos # (Auto) (0.0-0.7) K/uL Baso # (Auto) (0.0-0.1) K/uL Add Manual Diff YES Neutrophils % (Manual) 79 (48.0-80.0) % Band Neutrophils % 10 % Lymphocytes % (Manual) 3 L (16.0-40.0) % Monocytes % (Manual) 8 (0.0-15.0) % Nucleated RBC % 0.0 /100WBC Absolute Seg Neuts 22.2 H (1.4-5.7) Band Neutrophils # 2.8 Lymphocytes # (Manual) 0.8 (0.6-2.4) Monocytes # (Manual) 2.2 H (0.0-0.8) Nucleated RBCs # 0 K/uL Lactate 1.0 (0.20-2.00) mmol/L Sodium 138 (136-145) mmol/L Potassium 3.2 L (3.5-5.1) mmol/L Chloride 105 (98-107) mmol/L Carbon Dioxide 21.6 (21.0-32.0) mmol/L BUN 11 (7.0-18.0) mg/dL Creatinine 0.6 (0.6-1.0) mg/dL Est Cr Clr Drug Dosing 71.62 Estimated GFR (MDRD) > 60.0 ml/min Glucose 118 H (74-106) mg/dL Calcium 8.3 L (8.5-10.1) mg/dL Total Bilirubin 1.0 (0.2-1.0) mg/dL AST 185 H (15-37) IU/L ALT 244 H (14-63) IU/L Alkaline Phosphatase 335 H (46-116) U/L Total Protein 6.4 (6.4-8.2) g/dL Albumin 2.7 L (3.4-5.0) g/dL Globulin 3.7 (2.6-4.0) g/dL Albumin/Globulin Ratio 0.7 L (0.9-1.6) Urine Color Urine Appearance Urine pH (5.0-8.0) Ur Specific [place] (1.001-1.035) Urine Protein (NEGATIVE) mg/dL Urine Glucose (UA) (NEGATIVE) mg/dL Urine Ketones (NEGATIVE) mg/dL Urine Occult Blood (NEGATIVE) Urine Nitrite (NEGATIVE) Urine Bilirubin (NEGATIVE) Urine Urobilinogen (<2.0) EU/dL Ur Leukocyte Esterase (NEGATIVE) Urine RBC (0-2/HPF) Urine WBC (0-5/HPF) Ur Epithelial Cells (NONE-FEW) Urine Bacteria (NEGATIVE) Med Orders - Current: Current Medications Acetaminophen (Tylenol) 325 mg PO Q4H PRN PRN Reason: Pain Last Admin: 01/28/19 23:54 Dose: 325 mg Piperacillin Sod/Tazobactam (Sod 3.375 gm/ Sodium Chloride) 50 mls @ 100 mls/ hr IV Q6H ON LICENSE OF [facility] Last Admin: 01/29/19 06:11 Dose: 100 mls/hr Sodium Chloride (Normal Saline) 1,000 mls @ 125 mls/hr IV ASDIRECTED ON LICENSE OF [facility] Last Admin: 01/29/19 04:16 Dose: 125 mls/hr Vancomycin HCl 500 mg/ Sodium (Chloride) 100 mls @ 66.667 mls/hr IV Q12H ON LICENSE OF [facility] Last Admin: 01/29/19 09:45 Dose: 66.667 mls/hr Vancomycin HCl (Pharmacy To Dose - Vancomycin) 1 dose .XX ASDIRECTED ON LICENSE OF [facility] Discontinued Medications Acetaminophen (Tylenol) 325 mg PO Q4H PRN PRN Reason: Pain Vancomycin HCl 500 mg/ Sodium (Chloride) 100 mls @ 66.667 mls/hr IV Q12H ON LICENSE OF [facility] Vancomycin HCl 1 gm/ Sodium (Chloride) 250 mls @ 166 mls/hr IV Q12H NOA Vancomycin HCl 1 gm/ Sodium (Chloride) 250 mls @ 166 mls/hr IV ONETIME ONE Stop: 01/28/19 22:30 Last Admin: 01/28/19 21:32 Dose: 166 mls/hr Iopamidol (Isovue Multipack-370 (76%)) 60 ml IVPUSH ONETIME STA Stop: 01/28/19 17:46 Last Admin: 01/28/19 17:45 Dose: 60 ml Vancomycin HCl (Vancomycin) Confirm Administered Dose 1 gm .ROUTE .STK-MED ONE Stop: 01/28/19 20:28 Last Admin: 01/28/19 21:32 Dose: Not Given
[2019-01-29] MEDS: Acetaminophen 325 MG Tab PO PRN (14:28)
[2019-01-29 15:31] VITALS: BP 104/50
--- NOTE | 2019-01-29 19:57 | US ---
INDICATION: Recent gastrojejunostomy. Pain. COMPARISON: CT 29 January 2019. FINDINGS: No fluid in the peritoneum. Normal appearance of the visualized pancreas. Visualized liver is unremarkable. Irregular nonvascular fluid collection in the inferior gastrohepatic space roughly 7.6 x 5.5 cm. Echogenic margins. Common bile duct at the diandra hepatis is 4 mm. Right kidney is sonographically normal. No fluid in Davila`s pouch. IMPRESSION: Irregular margined fluid collection likely postoperative hematoma inferior gastrohepatic space. Dictated by Dennis Green MD @ Jan 29 2019 7:50PM Signed by Dr. Dennis Green @ Jan 29 2019 7:56PM
== END 2019-01-29 14:30 ==
LOC: MW.CHFP 15:19 → MW.ICU 17:55
PROVIDERS: ADMIT Internal Medicine; ATTEND Internal Medicine
DX: K91.89 Other postprocedural complications and disorders of digestive system (principal); K63.0 Abscess of intestine; Z87.11 Personal history of peptic ulcer disease; Z80.0 Family history of malignant neoplasm of digestive organs; Z79.899 Other long term (current) drug therapy
CPT/HCPCS: 36415; 74176; 74177; 76705; 80053; 81001; 83605; 85025; 87040; 87086; 96361; 96365; 96367; 96376; A9270; G0378; J2543; J3370; J7030; J7040; J7050; Q9967

== ENCOUNTER 2020-10-20 12:00 | Day surgery (SDC) | payer BC, OTHER ==
--- NOTE | 2020-10-20 10:34 | PCM.PREANE ---
Preanesthetic Assessment - Anesthesia/Transfusion/Family Hx Anesthesia History: Prior Anesthesia Without Reaction Family History of Anesthesia Reaction: No Transfusion History: Prior Transfusion Without Reaction Intubation History: Unknown - Review of Systems General: No Symptoms Pulmonary: No Symptoms Cardiovascular: No Symptoms Gastrointestinal: No Symptoms Neurological: No Symptoms Other: Reports: None - Physical Assessment NPO Status Date: 10/20/20 NPO Status Time: 00:05 Height: 5 ft Weight: 148 lb ASA Class: 2 Mental Status: Alert & Oriented x3 Airway Class: Mallampati = 2 Dentition: Reports: Normal Dentition, Partial ROM/Head Extension: Limited/Partial Lungs: Clear to Auscultation, Normal Respiratory Effort Cardiovascular: Regular Rate, Regular Rhythm - Allergies Allergies/Adverse Reactions: Allergies Allergy/AdvReac Type Severity Reaction Status Date / Time No Known Allergies Allergy Verified 10/16/20 14:21 - Anesthesia Plan Pre-Op Medication Ordered: None - Acknowledgements Anesthesia Type Planned: General Anesthesia Pt an Appropriate Candidate for the Planned Anesthesia: Yes Alternatives and Risks of Anesthesia Discussed w Pt/Guardian: Yes Pt/Guardian Understands and Agrees with Anesthesia Plan: Yes Additional Comments: npo chronic lbp take abt 1 tyl#3 a day elevated bp no rs no cv promlems hayfever kj tob quit 11 years ago etoh occ par no questions PreAnesthesia Questionnaire HEENT History: Reports: Allergic Rhinitis Other HEENT History: has upper partial removable denture Cardiovascular History: Reports: None Respiratory History: Reports: None Gastrointestinal History: Reports: Diverticulosis, Helicobacter Pylori, PUD Other Gastrointestinal History: hx gastric ulcer Genitourinary History: Other Genitourinary History: currently has a bladder infection PADDER CUSHION History: Reports: None Musculoskeletal History: Reports: Arthritis, Back Pain, Chronic, Neck Pain, Chronic Neurological History: Reports: None Psychiatric History: Reports: None Endocrine/Metabolic History: Reports: Other (See Below) Other Endocrine/Metabolic History: Vitamin B12 deficiency Hematologic History: Reports: B12 Deficiency, Blood Transfusion(s) Immunologic History: Reports: None Oncologic (Cancer) History: Reports: None Dermatologic History: Reports: None - Infectious Disease History Infectious Disease History: Reports: Chicken Pox - Past Surgical History Head Surgeries/Procedures: Reports: None HEENT Surgical History: Reports: Tonsillectomy Cardiovascular Surgical History: Reports: None Respiratory Surgical History: Reports: None GI Surgical History: Reports: Cholecystectomy, Colonoscopy, EGD, Other (See Below) Other GI Surgeries/Procedures: Bilroth 11 procedure Female Surgical History: Reports: Tubal Ligation Endocrine Surgical History: Reports: None Neurological Surgical History: Reports: None Musculoskeletal Surgical History: Reports: Hip Replacement Other Musculoskeletal Surgeries/Procedures:: right ROSA Oncologic Surgical History: Reports: None Other Oncologic Surgeries/Procedures: Family Hisotry of. 2 Sisters Dermatological Surgical History: Reports: None - SUBSTANCE USE Tobacco Use Status *Q: Former Tobacco User Tobacco Use Within Last Twelve Months: No Recreational Drug Use History: No - HOME MEDS Home Medications: Home Meds Pantoprazole [ProTONIX] 40 mg PO DAILY 09/23/18 [History] Acetaminophen with Codeine [Acetaminophen-Cod #3] 1 tab PO BEDTIME MDD 2 tabs 10/16/20 [History] Ascorbic Acid [Vitamin C] 1,000 mg PO DAILY 10/16/20 [History] Calcium Carbonate [Tums] 1,000 mg CHEW DAILY 10/16/20 [History] Cyanocobalamin (Vitamin B-12) [Cyanocobalamin Injection] 1,000 mg IM ASDIRECTED 10/16/20 [History] Diclofenac Sodium [Voltaren Arthritis Pain] 1 dose TOP DAILY 10/16/20 [History] Multivitamin 1 tab PO DAILY 10/16/20 [History] Zinc 50 mg PO DAILY 10/16/20 [History] nitrofurantoin macrocrystaL [Nitrofurantoin] 0 mg PO DAILY 10/16/20 [History] - CURRENT (IN HOUSE) MEDS Current Meds: Current Medications Lactated Ringer's (Ringers, Lactated) 1,000 mls @ 125 mls/hr IV ASDIRECTED COUNTS INCLUDE 234 BEDS AT THE [facility] Last Admin: 10/20/20 10:28 Dose: 125 mls/hr Documented by:
--- NOTE | 2020-10-20 11:39 | PCM.OPNOTE ---
- General Post-Op/Procedure Note Date of Surgery/Procedure: 10/20/20 Operative Procedure(s): Colonoscopy Pre Op Diagnosis: Desire for colorectal cancer screening. Family history of colon cancer. Post-Op Diagnosis: No evidence of neoplasia. Anesthesia Technique: MAC (ASA II) Primary Surgeon: [employer] Consultant: Mitra Lucia Condition: Good Free Text/Narrative:: DICTATION [id number] CPT CODE [id number]
[2020-10-20 11:45] VITALS: PULSE 77
--- NOTE | 2020-10-20 11:58 | PCM.POSTAN ---
POST ANESTHESIA ASSESSMENT - MENTAL STATUS Mental Status: Alert, Oriented - VITAL SIGNS Vital Signs: Last Vital Signs Temp 97.0 F 10/20/20 10:05 Pulse 77 10/20/20 11:44 Resp 16 10/20/20 11:44 BP 108/54 L 10/20/20 11:44 Pulse Ox 97 10/20/20 11:44 - RESPIRATORY Respiratory Status: Respiratory Rate WNL, Airway Patent, O2 Saturation Stable - CARDIOVASCULAR CV Status: Pulse Rate WNL, Blood Pressure Stable - GASTROINTESTINAL GI Status: No Symptoms - POST OP HYDRATION Hydration Status: Adequate & Stable
[~2020-10-20 12:00] MED LIST changes: +Midazolam 1 MG/ML 2 ML SDV ONE; +Propofol 200 MG/20 ML SDV ONE; -cefOXitin 1 GM in Premix Bag 1 BAG IV ONE; +fentaNYL 100 MCG/2 ML SDV ONE
[2020-10-20 12:03] VITALS: BP 103/58
--- NOTE | 2020-10-20 12:26 | PCM48HPAN ---
Post Anesthesia Note - EVALUATION WITHIN 48HRS OF ANESTHETIC Vital Signs in Normal Range: Yes Patient Participated in Evaluation: Yes Respiratory Function Stable: Yes Airway Patent: Yes Cardiovascular Function Stable: Yes Hydration Status Stable: Yes Pain Control Satisfactory: Yes Nausea and Vomiting Control Satisfactory: Yes Mental Status Recovered: Yes Vital Signs: Last Vital Signs Temp 97.5 F 10/20/20 11:50 Pulse 77 10/20/20 11:50 Resp 16 10/20/20 11:50 BP 103/58 L 10/20/20 11:50 Pulse Ox 96 10/20/20 11:50
--- NOTE | 2020-10-20 14:59 | OR ---
SURGEON: Bao Shoemaker M.D. DATE OF PROCEDURE: 10/20/2020 OPERATION PERFORMED: Colonoscopy. PRIMARY SURGEON: Bao Shoemaker M.D. MANAGER SUBWAY: cardiovascular physician assistant: FARIDEH Blount student. ANESTHESIA: MAC. ASA CLASSIFICATION: II. PREOPERATIVE DIAGNOSES: 1. Desire for colorectal cancer screening. 2. Family history of colon cancer. POSTOPERATIVE DIAGNOSIS: No evidence of neoplasia. DESCRIPTION OF PROCEDURE: The patient was taken to the endoscopy room and positioned on the endoscopy table in the left lateral decubitus position. Time-out was called for appropriate identification of the patient and procedure. Monitored anesthesia care was provided. The colonoscope was inserted into the rectum and advanced with minimal difficulty to the cecum. The cecum was identified by internal landmarks and external pressure. The colonoscope was retroflexed to visualize the ascending colon from below, then straightened, and slowly withdrawn. Cecum, ascending colon, hepatic flexure, transverse colon, splenic flexure, descending colon, sigmoid colon, and rectum were very well visualized. No tumors, polyps, diverticula, or angiodysplastic changes were noted anywhere in the lower gastrointestinal tract. Once the colonoscope was withdrawn to the rectum, it was retroflexed to visualize the anal orifice from above. Again, no tumors or polyps were seen and there were no acute hemorrhoidal changes. The colonoscope was then straightened, the rectum aspirated, and the colonoscope removed. The patient tolerated the procedure well and was taken to recovery room in stable condition. RUBY / JADEN /[id number]
== END 2020-10-20 12:10 | disposition home or self-care (01) ==
LOC: MW.SDS 12:00
PROVIDERS: ATTEND Surgery
DX: Z12.11 Encounter for screening for malignant neoplasm of colon (principal); Z80.0 Family history of malignant neoplasm of digestive organs; E53.8 Deficiency of other specified B group vitamins; Z79.899 Other long term (current) drug therapy; G89.29 Other chronic pain; Z86.2 Personal history of diseases of the blood and blood-forming organs and certain disorders involving the immune mechanism; Z87.19 Personal history of other diseases of the digestive system; Z98.890 Other specified postprocedural states; Z87.891 Personal history of nicotine dependence; Z90.49 Acquired absence of other specified parts of digestive tract
CPT/HCPCS: 45378; J2250; J2704; J3010; J7120